=== PATIENT | male | born 1965 | race Caucasian/White ===

== ENCOUNTER 2018-12-21 18:21 | Inpatient (IN) | payer SELFPAY ==
[2018-12-21 18:28] VITALS: BP 117/96; PULSE 102; RESP 17; TEMP 38.4; O2SAT 95; BMI 24.9
[2018-12-21] MEDS: Acetaminophen 500 MG Tablet 1000 MG PO (19:24)
[2018-12-21 19:59] LABS: Anion Gap 8 (5-15); BUN 10 mg/dL (7-18); BUN/Creat Ratio 11.7 RATIO (10-20); Calcium,Total 8.5 mg/dL (8.5-10.1); Chloride 101 mmol/L (98-107); Creatinine, Serum 0.85 mg/dL (0.70-1.30); EST Glomerular Filtration Rate 100 mL/min (>60); Est Glom Filt Rate - Afr Amer 121 mL/min (>60); Estimated Creatinine Clearance 110.31 ml/min; Glucose 110 mg/dL (74-106); Potassium 3.9 mmol/L (3.5-5.1); Sodium Level 132 mmol/L (136-145)
[2018-12-21 20:02] VITALS: BP 158/90; PULSE 88; RESP 16; TEMP 37.3; O2SAT 97
[2018-12-21 20:07] LABS: Absolute Lymphocyte Count 0.61 X10^3/ul (0.83-4.51); Absolute Neutrophil Count 10.5 X10^3/uL (2.0-7.7); Basophil# 0.02 X10^3/uL; Basophil% 0.2 % (0-1); Eosinophil# 0.07 X10^3/uL; Eosinophils% 0.6 % (0-5); Hematocrit 43.2 % (40-54); Hemoglobin 14.7 g/dl (13.0-16.5); Lymphocyte # 0.61 X10^3/ul (4.0); Lymphocyte % 4.9 % (19-41); Mean Corpuscular Hgb 29.9 pg (27.0-32.0); Mean Platelet Vol. 8.8 fl (6.2-12.0); Monocyte% 8.9 % (0-10); Neutrophil # 10.51 X10^3/uL (2.7-7.7); Neutrophil % 85.2 % (47-70); POSITIVE COUNT NO; POSITIVE DIFFERENTIAL NO; POSITIVE MORPHOLOGY NO; Platelet Count 296 K/mm3 (150-450); RBC Distribution Width CV 12.2 % (11.6-14.6); RBC Distribution Width SD 38.9 fl (35.1-43.9); Red Blood Count 4.91 M/mm3 (4.6-6.2); White Blood Count 12.3 K/mm3 (4.4-11.0)
[2018-12-21 22:00] VITALS: BP 129/89; PULSE 89; RESP 18; TEMP 37; O2SAT 99
--- NOTE | 2018-12-21 22:57 | ED.RN ---
THIS RN WENT IN TO CHECK ON PT AND GET VITAL SIGNS. PT WAS ASLEEP IN BED. THIS RN WOKE PATIENT UP AND INFORMED HIS CHART IS UP FOR REEVALUATION BY THE DOCTOR
--- NOTE | 2018-12-21 23:52 | PCM.HP.STD ---
Problem List (1) Sepsis Status: Acute (2) Fasciitis Status: Acute (3) Polysubstance (including opioids) dependence with physiol dependence Status: Acute History of Present Illness Date of Admission: 12/21/18 Chief Complaint: pain, swelling and redness at right antecubital area The patient is a 53 year old M with a significant history of polysubstance dependence who presented with 1 day history of pain, swelling, increased warmth and redness at right antecubital area. Patient reported that he has been shooting drugs at the same area with symptoms. Also he has been shooting in his left antecubital area. He shoots cocaine and heroin. He shoots about a quarter of heroin in a day. He describes his pain as sharp. Movement makes his pain worse and staying still improves his pain. Associated with symptoms is chills. He did not check his temperature. He denies any nausea or vomiting. Also he smokes marijuana and tobacco. He drinks about 6 packs beer. At Emergency department patient he was found to have highest temperature of 101.1. He had a white count of 12.3. His sodium was mildly low at 132. At the emergency department patient was given vancomycin and Zosyn. He was also given Toradol IV. Past Medical History Medical History: Medical History (Last Updated 12/22/18 @ 01:41 by Ananth Guerrero MD) Polysubstance dependence F19.20 Allergies Penicillins Allergy (Verified 12/21/18 18:31) Rash Home Medications: Ambulatory Orders Medication Instructions Recorded NK 10/18/17 Surgical History: tonsillectomy Lives: With Family Smoking Status: Current every day smoker Alcohol: Occasional - *Family History Maternal History Items: Hypertension Paternal History Items: Diabetes, Heart Disease, Hypertension Review of Systems Constitutional: Reports: Chills. Denies: Weight Change HEENT: Denies: Head Aches, Sinus Congestion, Sinus Drainage Cardiovascular: Denies: Chest Pain, Palpitations Respiratory: Reports: Cough, Sputum production. Denies: Shortness of breath at rest Gastrointestinal: Denies: Abdominal Pain, Nausea, Vomiting Genitourinary: Denies: Dysuria Musculoskeletal: Reports: Joint Pain - elbow. Denies: Joint Tenderness Skin: Reports: Skin Changes - erythema of right antecubital area. Denies: Wounds Neurological: Denies: Numbness, Tingling, Focal weakness Psychiatric: Denies: Anxiety, Depression, Homicidal Ideations, Suicidal Ideations Hematologic/ Lymphatic: Denies: Easy Bruising, Easy Bleeding VTE Information - Inpt Only VTE Present on Admission: No VTE Mechan Device Prophylaxis: None VTE Pharm Prophylaxis ordered?: Yes Patient Problems: Active and Suspected Problems (Last Updated 12/22/18 @ 01:41 by Ananth Guerrero MD) Sepsis (Acute) Fasciitis (Acute) Polysubstance (including opioids) dependence with physiol dependence (Acute) - Physical Exam General: Alert, Oriented x3, Cooperative HEENT: Atraumatic, PERRLA, EOMI, Normocephalic Neck: Supple, No JVD, Negative Carotid Bruits Lungs: Clear to auscultation, Normal air movement Cardiovascular: Regular rate, No murmurs Abdomen: Bowel Sounds Present, Soft, Non Tender Extremities: No edema, Capillary Refill Less than 3 Seconds Skin: No rashes, No breakdown, - - Right antecubital area with erythema, induration; and increased warmth. Musculoskeletal: No Tenderness to Palpation of Joints or Extremities Neurological: Neuro grossly intact Psych/Mental Status: Normal Affect, Appropriate Vital Signs Temp Pulse Resp BP Pulse Ox 98.6 F 89 18 129/89 H 99 12/21/18 22:00 12/21/18 22:00 12/21/18 22:00 12/21/18 22:00 12/21/18 22:00 Oxygen Delivery Method Room Air Weight: 83.4 kg Body Mass Index (BMI) 24.9 Laboratory Tests Past 24 Hrs 12/21/18 12/21/18 19:31 19:31 WBC 12.3 H RBC 4.91 Hgb 14.7 Hct 43.2 MCV 88.0 MCH 29.9 MCHC 34.0 RDW 12.2 RDW Differential 38.9 Plt Count 296 MPV 8.8 Immature Gran % (Auto) 0.200 Neut % (Auto) 85.2 H Lymph % (Auto) 4.9 L [place] % (Auto) 8.9 Eos % (Auto) 0.6 Baso % (Auto) 0.2 Absolute Neuts (auto) 10.5 H Absolute Lymphs (auto) 0.61 L Total Counted Not Reportable Sodium 132 L Potassium 3.9 Chloride 101 Carbon Dioxide 23.0 Anion Gap 8 BUN 10 Creatinine 0.85 Estim Creat Clear Calc 110.31 Est GFR (MDRD) Af Amer 121 Est GFR (MDRD) Non-Af 100 BUN/Creatinine Ratio 11.7 Glucose 110 H Calcium 8.5 Assessment/Plan All Active Problems (Last Updated 12/22/18 @ 01:41 by Ananth Guerrero MD) Sepsis (Acute) Fasciitis (Acute) Polysubstance (including opioids) dependence with physiol dependence (Acute) The patient is a 53 year old M with a significant history of polysubstance dependence who presented with 1 day history of pain, swelling, increased warmth and redness at right antecubital area and who met Sirs criteria with elevated white count and fever consistent with sepsis secondary to likely fasciitis/cellulitis. Sepsis secondary to likely fasciitis/cellulitis. No evidence of necrotizing fasciitis at this time. Received vancomycin and Zosyn in the emergency department. We will continue vancomycin and Zosyn. Consider discussing case with plastic surgeon. Oxycodone IR prn; Toradol as needed for pain Tylenol as needed for pain and fever. PRN Zofran and bowel protocol in the setting of narcotic administration. Polysubstance dependence and withdrawal. At the emergency department patient's reported that he think that he has begun to withdrawal as he was having some chest tightness. He reports a history of withdrawal. PRN oxycodone for pain should also help with his withdrawal symptoms. Tobacco abuse Counseled Nicotine patch ordered. Hyponatremia: On presentation his sodium was 132. He reports that he drinks about 6 packs/week. The patient is not minimizing this may be classified as alcoholism. However it is probable that his mild hyponatremia could be due to alcoholism. Trend BMP Gentle IV hydration with normal saline. DVT prophylaxis: Subcutaneous heparin ordered. Code Visit Inpatient E&M: 72415 Init Hosp L3
[2018-12-22] VITALS (8 sets, daily range): BP systolic 113–134; BP diastolic 60–91; PULSE 72–82; RESP 16–18; TEMP 36.9–37.8; O2SAT 97–100; BMI 23.9
--- NOTE | 2018-12-22 00:11 | ED.VISSUMM ---
- ER Visit Summary Date of Service: 12/22/18 Chief Complaint: Right arm pain and redness History of Present Illness: The patient is a 53 M IV drug abuse. Patient uses heroin frequently. He shoots up in his right antecubital. He is developed a fever and redness, swelling and pain to his right antecubital of his elbow. No prior history. Physical Examination: Vital signs stable with temperature 101. He does not look septic or toxic. HEENT exam unremarkable moist weeks membranes. Neck nontender no lymphadenopathy. Heart regular rate and rhythm no murmur rate about 100. Abdomen soft nontender. Extremities moves all 4. Neurovascular intact. His right antecubital is tender, red and swollen. Obvious cellulitis suspected subcu abscess. No lymphangitic streaking. No axillary lymphadenopathy. No septic joint. He is able to flex and extend the elbow but has pain in antecubital area. Distally the right hand is neurovascular intact with 5/5 motor strength. Normal sensation. Normal radial pulse. Neurologically is awake alert with no focal motor deficits. Test Results: CBC White count 12.3. Hemoglobin 14. No bands. Chemistries unremarkable sodium 132. Gap of 8. Blood cultures were obtained x2. Emergency Department Course and Treatment: Patient was started on Zosyn and vancomycin. Tylenol for his fever. Treatment Plan: I spoke to the hospitalist who will admit the patient and can get either surgery or plastic surgery or orthopedic evaluation for possible I&D of the abscess. Disposition: Admission Impression: Acute right arm cellulitis with suspected antecubital abscess Secondary to IV drug abuse This note was generated with [employer] dictation software. It may contain incorrect words, spelling, and punctuation that were not noted in review of the chart prior to signing ED Disposition - Plan for ED Patient: Referrals: Bruce Le DO [Primary Care Provider] -
--- NOTE | 2018-12-22 00:14 | ED.DCSUM_ITS ---
- ER Visit Summary Date of Service: 12/22/18 Chief Complaint: Right arm pain and redness History of Present Illness: The patient is a 53 M IV drug abuse. Patient uses heroin frequently. He shoots up in his right antecubital. He is developed a fever and redness, swelling and pain to his right antecubital of his elbow. No prior history. Physical Examination: Vital signs stable with temperature 101. He does not look septic or toxic. HEENT exam unremarkable moist weeks membranes. Neck nontender no lymphadenopathy. Heart regular rate and rhythm no murmur rate about 100. Abdomen soft nontender. Extremities moves all 4. Neurovascular intact. His right antecubital is tender, red and swollen. Obvious cellulitis suspected subcu abscess. No lymphangitic streaking. No axillary lymphadenopathy. No septic joint. He is able to flex and extend the elbow but has pain in ant ecubital area. Distally the right hand is neurovascular intact with 5/5 motor strength. Normal sensation. Normal radial pulse. Neurologically is awake alert with no focal motor deficits. Test Results: CBC White count 12.3. Hemoglobin 14. No bands. Chemistries unremarkable sodium 132. Gap of 8. Blood cultures were obtained x2. Emergency Department Course and Treatment: Patient was started on Zosyn and vancomycin. Tylenol for his fever. Treatment Plan: I spoke to the hospitalist who will admit the patient and can get either surgery or plastic surgery or orthopedic evaluation for possible I&D of the abscess. Disposition: Admission Impression: Acute right arm cellulitis with suspected antecubital abscess Secondary to IV drug abuse This note was generated with [employer] dictation software. It may contain incorrect words, spelling, and punctuation that were not noted in review of the chart prior to signing ED Disposition - Plan for ED Patient: Referrals: Bruce Le DO [Primary Care Provider] -
[2018-12-22] MEDS: Ketorolac 30 MG/ML Syringe IV (00:23)
[2018-12-22] MEDS: oxyCODONE 5 MG Tablet PO ×2 (00:43→08:09)
[2018-12-22] MEDS: 0.9% Normal Saline 1,000 ML 75 ML IV (01:39)
[2018-12-22] MEDS: Acetaminophen 325 MG Tablet 650 MG PO ×3 (01:50→17:16)
--- NOTE | 2018-12-22 01:53 | PCM.RX.CS ---
Consult Pharmacy has been consulted to manage selected antiobiotic: Vancomycin Type of Consult: New start Suspected Infection: Sepsis Prior Doses of Antibiotics Received/Current Regimen: Medications Vancomycin HCl 1,500 mg/ (Sodium Chloride) 530 mls @ 250 mls/hr IV X1 ONE Stop: 12/22/18 02:15 Last Admin: 12/22/18 01:39 Dose: 250 mls/hr Vancomycin HCl 1,000 mg/ (Sodium Chloride) 200 mls @ 200 mls/hr IV Q8H ANTONIO Labs: Sodium 132 mmol/L (136-145) L 12/21/18 19:31 Potassium 3.9 mmol/L (3.5-5.1) 12/21/18 19:31 Chloride 101 mmol/L (98-107) 12/21/18 19:31 Carbon Dioxide 23.0 mmol/L (21.0-32.0) 12/21/18 19:31 Anion Gap 8 (5-15) 12/21/18 19:31 BUN 10 mg/dL (7-18) 12/21/18 19:31 Creatinine 0.85 mg/dL (0.70-1.30) 12/21/18 19:31 Est GFR (MDRD) Af Amer 121 mL/min (>60) 12/21/18 19:31 Est GFR (MDRD) Non-Af 100 mL/min (>60) 12/21/18 19:31 BUN/Creatinine Ratio 11.7 RATIO (10-20) 12/21/18 19:31 Glucose 110 mg/dL (74-106) H 12/21/18 19:31 Weight used for dosin.1 kg Estimated Creatinine Clearance: 110 Goal Trough: 15-20 mcg/mL Pharmacy Plan for Drug Dosing: Pharmacy Service will continue to monitor and adjust dosing as required. Follow-Up Labs: Trough Vancomycin Labs to be done on [date and time ordered]: 12/23/18 @0100
[2018-12-22 03:18] LABS: Absolute Lymphocyte Count 0.64 X10^3/ul (0.83-4.51); Basophil# 0.03 X10^3/uL; Basophil% 0.3 % (0-1); Eosinophil# 0.09 X10^3/uL; Eosinophils% 0.9 % (0-5); Hematocrit 40.9 % (40-54); Lymphocyte # 0.64 X10^3/ul (4.0); Lymphocyte % 6.1 % (19-41); Mean Corp Hgb Conc 34.2 g/gl (32-36); Mean Corpuscular Hgb 30.5 pg (27.0-32.0); Mean Corpuscular Volume 89.1 fL (80-94); Mean Platelet Vol. 8.6 fl (6.2-12.0); Monocyte# 0.78 X10^3/uL; Monocyte% 7.4 % (0-10); Neutrophil # 9.01 X10^3/uL (2.7-7.7); Neutrophil % 85.1 % (47-70); Platelet Count 240 K/mm3 (150-450); RBC Distribution Width CV 12.2 % (11.6-14.6); RBC Distribution Width SD 39.6 fl (35.1-43.9); Red Blood Count 4.59 M/mm3 (4.6-6.2); White Blood Count 10.6 K/mm3 (4.4-11.0)
[2018-12-22 03:19] LABS: POSITIVE COUNT NO; POSITIVE DIFFERENTIAL NO; POSITIVE MORPHOLOGY NO
[2018-12-22 03:44] LABS: Anion Gap 7 (5-15); BUN 12 mg/dL (7-18); BUN/Creat Ratio 13.9 RATIO (10-20); Chloride 103 mmol/L (98-107); Creatinine, Serum 0.86 mg/dL (0.70-1.30); EST Glomerular Filtration Rate 98 mL/min (>60); Est Glom Filt Rate - Afr Amer 119 mL/min (>60); Estimated Creatinine Clearance 109.03 ml/min; Glucose 155 mg/dL (74-106); Potassium 3.8 mmol/L (3.5-5.1); Sodium Level 133 mmol/L (136-145)
[2018-12-22 03:46] LABS: Lactic Acid 1.5 mmol/L (0.4-2.0)
[2018-12-22] MEDS: Heparin Injection (Vial) 5,000 UNIT/ML VIAL 5000 UNIT SC (05:37)
[2018-12-22] MEDS: Ketorolac 15 MG/ML Vial IV ×3 (05:46→21:24)
--- NOTE | 2018-12-22 06:07 | NURSING ---
Called [facility] and left a message in regards to consult.
--- NOTE | 2018-12-22 08:06 | NURSING ---
micro called with positive blood culture report. primary RN and MD notified
--- NOTE | 2018-12-22 09:33 | CT_ITS ---
STUDY: CT RIGHT ELBOW WITH CONTRAST REASON FOR EXAM: Redness/warmth to touch, cellulitis. TECHNIQUE: Transaxial CT imaging of the elbow was performed after intravenous administration of 100 mL of Isovue-300. Sagittal and coronal images were reconstructed. Individualized dose optimization techniques were used for this CT. COMPARISON: None. FINDINGS: Normal visualized humerus, radius and ulna. Normal radiocapitellar and ulnotrochlear articulations. There is soft tissue swelling without a focal fluid collection with wall enhancement. There is thrombus in the antecubital veins (series 602 images 45-49). CT/Extremity Upper without Contra IMPRESSION: Thrombus in the antecubital veins. Soft tissue swelling without demonstrated abscess or osteomyelitis. Electronically Signed: Arsenio Snow MD at 11:36 EDT Tel , Service support ,
--- NOTE | 2018-12-22 09:35 | PCM.PN.HOSP ---
Patient Problems: Active and Suspected Problems (Last Updated 12/22/18 @ 01:41 by Ananth Guerrero MD) Sepsis (Acute) Polysubstance (including opioids) dependence with physiol dependence (Acute) Right arm cellulitis (Acute) Bacteremia (Acute) Subjective: Erythema in the right antecubital region is much improved from yesterday. Still tenderness and swelling in the antecubital region. Expresses a desire to quit heroin. Patient had been clean and sober for about 10 years up until about a year ago when his brought home heroin and then he has been injecting heroin and cocaine ever since. Vitals/I&O's: Vital Signs Temp Pulse Resp BP Pulse Ox 37.0 C 80 18 127/91 H 100 12/22/18 09:07 12/22/18 09:07 12/22/18 09:07 12/22/18 09:07 12/22/18 09:07 Oxygen Delivery Method Room Air Weight: 80.1 kg Body Mass Index (BMI) 23.9 Intake and Output for Last 24 Hours 12/20/18 12/21/18 12/22/18 23:59 23:59 23:59 Intake Total 1176 / 1176 Balance 1176 / 1176 General: Alert, No apparent distress, - - Diaphoretic. Afebrile. HEENT: Atraumatic, Normocephalic, - - No scleral icterus Oral: Moist Mucosa, No Gingival or Mucosal Lesions/ Ulcerations Neck: No Nodes, Thyroid Normal Size and Texture Lungs: Clear to auscultation, Normal air movement, No rhonchi, No wheeze Cardiovascular: Regular rate, Regular Rhythm, Normal S1, Normal S2, No murmurs Abdomen: Bowel Sounds Present, Soft, Non Tender, Non-Distended, No Hepato-splenomegaly Skin: - - Faint erythema of the right antecubital region. Area of erythema is much withdrawn from the lines of demarcation. Swelling and induration in the antecubital region. Psych/Mental Status: Normal Affect, Appropriate Microbiology Past 72 Hours 12/21/18 19:31 Blood Culture (Wb) - Left Forearm Blood Culture - Preliminary Laboratory Results 12/21/18 19:31: WBC 12.3 H, RBC 4.91, Hgb 14.7, Hct 43.2, MCV 88.0, MCH 29.9, MCHC 34.0, RDW 12.2, RDW Differential 38.9, Plt Count 296, MPV 8.8, Immature Gran % (Auto) 0.200, Neut % (Auto) 85.2 H, Lymph % (Auto) 4.9 L, [place] % (Auto) 8.9, Eos % (Auto) 0.6, Baso % (Auto) 0.2, Absolute Neuts (auto) 10.5 H, Absolute Lymphs (auto) 0.61 L, Total Counted Not Reportable 12/21/18 19:31: Sodium 132 L, Potassium 3.9, Chloride 101, Carbon Dioxide 23.0, Anion Gap 8, BUN 10, Creatinine 0.85, Estim Creat Clear Calc 110.31, Est GFR (MDRD) Af Amer 121, Est GFR (MDRD) Non-Af 100, BUN/Creatinine Ratio 11.7, Glucose 110 H, Calcium 8.5 12/22/18 03:05: WBC 10.6, RBC 4.59 L, Hgb 14.0, Hct 40.9, MCV 89.1, MCH 30.5, MCHC 34.2, RDW 12.2, RDW Differential 39.6, Plt Count 240, MPV 8.6, Immature Gran % (Auto) 0.200, Neut % (Auto) 85.1 H, Lymph % (Auto) 6.1 L, [place] % (Auto) 7.4, Eos % (Auto) 0.9, Baso % (Auto) 0.3, Absolute Neuts (auto) 9.0 H, Absolute Lymphs (auto) 0.64 L, Total Counted Not Reportable 12/22/18 03:05: Sodium 133 L, Potassium 3.8, Chloride 103, Carbon Dioxide 23.0, Anion Gap 7, BUN 12, Creatinine 0.86, Estim Creat Clear Calc 109.03, Est GFR (MDRD) Af Amer 119, Est GFR (MDRD) Non-Af 98, BUN/Creatinine Ratio 13.9, Glucose 155 H, Calcium 8.0 L 12/22/18 03:05: Lactic Acid 1.5 Current Medications Acetaminophen (Tylenol) 650 mg PO Q6H PRN PRN PRN Reason: FEVER OF > 100.4/PAIN Last Admin: 12/22/18 01:50 Dose: 650 mg Bisacodyl (Dulcolax) 5 mg PO DAILY PRN PRN PRN Reason: Constipation Heparin Sodium (Porcine) (Heparin Na) 5,000 unit SC Q8 [facility] Last Admin: 12/22/18 05:37 Dose: 5,000 unit Vancomycin IV Pharmacy to Dose (1,250 ea/ Sodium Chloride) 500 mls @ 250 mls/hr IV PRN PRN; Protocol Vancomycin HCl 1,000 mg/ (Sodium Chloride) 200 mls @ 200 mls/hr IV Q8H [facility] Influenza Virus Vaccine Quadrival (Fluarix/Fluzone) 0.5 ml IM .ONCE ONE Stop: 12/22/18 10:01 Ketorolac Tromethamine (Toradol) 15 mg IV Q6H PRN PRN PRN Reason: PAIN Stop: 12/27/18 01:12 Last Admin: 12/22/18 05:46 Dose: 15 mg Magnesium Hydroxide (Milk Of Magnesia) 30 ml PO DAILY PRN PRN PRN Reason: Constipation Nicotine (Nicoderm Cq (Pbkc)) 21 mg TRANSDERM. DAILY [facility] Last Admin: 12/22/18 01:44 Dose: 21 mg Nutritional Formula (Lactose Free) (Ensure Enlive) 120 ml PO 4X/DAY [facility] Ondansetron HCl (Zofran) 4 mg IV Q6H PRN PRN PRN Reason: NAUSEA/VOMITING Senna/Docusate Sodium (Senokot-S, Ruby-Colace) 1 tablet PO BID [facility] Medical Necessity - Tobacco Use Smoking Status: Current every day smoker Tobacco Use: Cigarettes Assessment/Plan All Active Problems (Last Updated 12/22/18 @ 01:41 by Ananth Guerrero MD) Sepsis (Acute) Fasciitis (Ruled-out) Polysubstance (including opioids) dependence with physiol dependence (Acute) Right arm cellulitis (Acute) Bacteremia (Acute) 1. Sepsis: Present on admission. Secondary to right arm cellulitis and bacteremia. Clinically improved at this time. Monitor. 2. Right antecubital cellulitis: Concern for abscess. Will check CT to evaluate and if abscess and will need to consult surgical specialty for incision and drainage. But the overall cellulitis does appear much improved from the demarcation. Continue with vancomycin and discontinue the Zosyn. 3. Gram-positive bacteremia: Likely due to the cellulitis plus or minus abscess. Continue with vancomycin and discontinue Zosyn. Repeat blood cultures. If repeat blood cultures positive then will need an echocardiogram to evaluate for endocarditis. 4. Heroin abuse: Patient has a CINA core of 19. Patient is interested in receiving treatment has he has done this previously had been sober for about 10 years. I discussed with the patient about discontinuing oxycodone for going to be initiating buprenorphine. He stated that he was in agreement to that and stated that we will try to optimize his pain control with nonnarcotics. Patient will also be on other medications to help with his other somatic complaints place here. [facility] to further assist in regards to outpatient management. 5. DVT prophylaxis: Patient is moderate risk. Subcu heparin. Code Visit Inpatient E&M: 81049 Subs Hosp L2
--- NOTE | 2018-12-22 09:40 | PN_ITS ---
Patient Problems: Active and Suspected Problems (Last Updated 12/22/18 @ 01:41 by Ananth Guerrero MD) Sepsis (Acute) Polysubstance (including opioids) dependence with physiol dependence (Acute) Right arm cellulitis (Acute) Bacteremia (Acute) Subjective: Erythema in the right antecubital region is much improved from yesterday. Still tenderness and swelling in the antecubital region. Expresses a desire to quit heroin. Patient had been clean and sober for about 10 years up until about a year ago when his brought home heroin and then he has been injecting heroin and cocaine ever since. Vitals/I&O's: Vital Signs Temp Pulse Resp BP Pulse Ox 37.0 C 80 18 127/91 H 100 12/22/18 09:07 12/22/18 09:07 12/22/18 09:07 12/22/18 09:07 12/22/18 09:07 Oxygen Delivery Method Room Air Weight: 80.1 kg Body Mass Index (BMI) 23.9 Intake and Output for Last 24 Hours 12/20/18 12/21/18 12/22/18 23:59 23:59 23:59 Intake Total 1176 / 1176 Balance 1176 / 1176 General: Alert, No apparent distress, - - Diaphoretic. Afebrile. HEENT: Atraumatic, Normocephalic, - - No scleral icterus Oral: Moist Mucosa, No Gingival or Mucosal Lesions/ Ulcerations Neck: No Nodes, Thyroid Normal Size and Texture Lungs: Clear to auscultation, Normal air movement, No rhonchi, No wheeze Cardiovascular: Regular rate, Regular Rhythm, Normal S1, Normal S2, No murmurs Abdomen: Bowel Sounds Present, Soft, Non Tender, Non-Distended, No Hepato- splenomegaly Skin: - - Faint erythema of the right antecubital region. Area of erythema is much withdrawn from the lines of demarcation. Swelling and induration in the antecubital region. Psych/Mental Status: Normal Affect, Appropriate Microbiology Past 72 Hours 12/21/18 19:31 Blood Culture (Wb) - Left Forearm Blood Culture - Preliminary Laboratory Results 12/21/18 19:31: WBC 12.3 H, RBC 4.91, Hgb 14.7, Hct 43.2, MCV 88.0, MCH 29.9, MCHC 34.0, RDW 12.2, RDW Differential 38.9, Plt Count 296, MPV 8.8, Immature Gran % (Auto) 0.200, Neut % (Auto) 85.2 H, Lymph % (Auto) 4.9 L, [place] % (Auto) 8.9, Eos % (Auto) 0.6, Baso % (Auto) 0.2, Absolute Neuts (auto) 10.5 H, Absolute Lymphs (auto) 0.61 L, Total Counted Not Reportable 12/21/18 19:31: Sodium 132 L, Potassium 3.9, Chloride 101, Carbon Dioxide 23.0, Anion Gap 8, BUN 10, Creatinine 0.85, Estim Creat Clear Calc 110.31, Est GFR (MDRD) Af Amer 121, Est GFR (MDRD) Non-Af 100, BUN/Creatinine Ratio 11.7, Glucose 110 H, Calcium 8.5 12/22/18 03:05: WBC 10.6, RBC 4.59 L, Hgb 14.0, Hct 40.9, MCV 89.1, MCH 30.5, MCHC 34.2, RDW 12.2, RDW Differential 39.6, Plt Count 240, MPV 8.6, Immature Gran % (Auto) 0.200, Neut % (Auto) 85.1 H, Lymph % (Auto) 6.1 L, [place] % (Auto) 7.4, Eos % (Auto) 0.9, Baso % (Auto) 0.3, Absolute Neuts (auto) 9.0 H, Absolute Lymphs (auto) 0.64 L, Total Counted Not Reportable 12/22/18 03:05: Sodium 133 L, Potassium 3.8, Chloride 103, Carbon Dioxide 23.0, Anion Gap 7, BUN 12, Creatinine 0.86, Estim Creat Clear Calc 109.03, Est GFR (MDRD) Af Amer 119, Est GFR (MDRD) Non-Af 98, BUN/Creatinine Ratio 13.9, Glucose 155 H, Calcium 8.0 L 12/22/18 03:05: Lactic Acid 1.5 Current Medications Acetaminophen (Tylenol) 650 mg PO Q6H PRN PRN PRN Reason: FEVER OF > 100.4/PAIN Last Admin: 12/22/18 01:50 Dose: 650 mg Bisacodyl (Dulcolax) 5 mg PO DAILY PRN PRN PRN Reason: Constipation Heparin Sodium (Porcine) (Heparin Na) 5,000 unit SC Q8 [facility] Last Admin: 12/22/18 05:37 Dose: 5,000 unit Vancomycin IV Pharmacy to Dose (1,250 ea/ Sodium Chloride) 500 mls @ 250 mls/hr IV PRN PRN; Protocol Vancomycin HCl 1,000 mg/ (Sodium Chloride) 200 mls @ 200 mls/hr IV Q8H [facility] Influenza Virus Vaccine Quadrival (Fluarix/Fluzone) 0.5 ml IM .ONCE ONE Stop: 12/22/18 10:01 Ketorolac Tromethamine (Toradol) 15 mg IV Q6H PRN PRN PRN Reason: PAIN Stop: 12/27/18 01:12 Last Admin: 12/22/18 05:46 Dose: 15 mg Magnesium Hydroxide (Milk Of Magnesia) 30 ml PO DAILY PRN PRN PRN Reason: Constipation Nicotine (Nicoderm Cq (Pbkc)) 21 mg TRANSDERM. DAILY [facility] Last Admin: 12/22/18 01:44 Dose: 21 mg Nutritional Formula (Lactose Free) (Ensure Enlive) 120 ml PO 4X/DAY [facility] Ondansetron HCl (Zofran) 4 mg IV Q6H PRN PRN PRN Reason: NAUSEA/VOMITING Senna/Docusate Sodium (Senokot-S, Ruby-Colace) 1 tablet PO BID [facility] Medical Necessity - Tobacco Use Smoking Status: Current every day smoker Tobacco Use: Cigarettes Assessment/Plan All Active Problems (Last Updated 12/22/18 @ 01:41 by Ananth Guerrero MD) Sepsis (Acute) Fasciitis (Ruled-out) Polysubstance (including opioids) dependence with physiol dependence (Acute) Right arm cellulitis (Acute) Bacteremia (Acute) 1. Sepsis: Present on admission. Secondary to right arm cellulitis and bacteremia. Clinically improved at this time. Monitor. 2. Right antecubital cellulitis: Concern for abscess. Will check CT to evaluate and if abscess and will need to consult surgical specialty for incision and drainage. But the overall cellulitis does appear much improved from the demarcation. Continue with vancomycin and discontinue the Zosyn. 3. Gram-positive bacteremia: Likely due to the cellulitis plus or minus abscess. Continue with vancomycin and discontinue Zosyn. Repeat blood cultures. If repeat blood cultures positive then will need an echocardiogram to evaluate for endocarditis. 4. Heroin abuse: Patient has a CINA core of 19. Patient is interested in receiving treatment has he has done this previously had been sober for about 10 years. I discussed with the patient about discontinuing oxycodone for going to be initiating buprenorphine. He stated that he was in agreement to that and stated that we will try to optimize his pain control with nonnarcotics. Patient will also be on other medications to help with his other somatic complaints place here. [facility] to further assist in regards to outpatient management. 5. DVT prophylaxis: Patient is moderate risk. Subcu heparin. Code Visit Inpatient E&M: 42865 Subs Hosp L2
[2018-12-22] MEDS: Pramipexole Di-HCl 0.25 MG Tablet PO (11:00)
[2018-12-22] MEDS: cloNIDine HCl 0.1 MG Tablet PO ×3 (11:00→17:16)
[2018-12-22] MEDS: Methocarbamol 750 MG Tablet PO (11:00)
[2018-12-22] MEDS: Dicyclomine 10 MG Capsule 20 MG PO ×2 (11:00→17:16)
[2018-12-22] MEDS: Buprenorphine HCl 2 MG TAB.SUBL SL ×2 (11:01→18:35)
--- NOTE | 2018-12-22 15:07 | CASEMGMT ---
Reason for Referral: Pt referred to SW by physician this morning for drug abuse history and active use; pt indicated to physician wants to go through withdrawal and interested in help. Pt is also self pay. SW met w/pt in room to review prior level of function, discharge plan, referrals needed. Personal Status: Living arrangements: Pt was living w/ up until recently, they lost their housing. Pt's is in an inpt program called [facility] in [place]. Pt is living with his mother at present. 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 Pt states gets paid $25/hour, does plan to return to work. Insurance: Pt has no insurance at present, no prescription coverage, pt states had Medicaid but will not qualify now due to his income. SW gave pt resources including [facility] assist, [employer], Medicaid [place], [employer], prescription assist programs, and dental clinic information. : none Family Dynamics/Support system: Pt reports he and his lost custody of their 16 year old, she is staying w/friends. He missed a visit with her yesterday as he was here. Pt is staying w/his mother. Seems to have a good relationship w/, this is his second , they have been for 24 years. Pt has two older sons(26 and 30)from a previous marriage. They will not speak to him due to his using again. LW/POA: No Medical History and Functioning: Reason for admission: cellulitis, bacteremia, fascitis, polysubstance abuse ADL/DME: Pt was fully independent, no DME Programs/Agencies involved: Children's Services involved due to their 16 year old daughter. Pt and lost custody of her, she is staying w/friends at present. Substance abuse history and current pattern of use: Pt states he uses cocaine, has been using for one year. Pt and had been clean for 10 years prior to picking up again last year. Pt started using heroin 2 months ago, states never used heroin prior. Pt smokes, drinks occasionally. Pt denies another other drug use including marijuana, prescription meds, methamphetamine. Pt states he and started using one year ago. went through breast cancer, and she also had gastric bypass. He states she loste a lot of weight and people assumed she was using, so she just started using again. When she started again, he joined her. 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 Pt states is going to [facility] in [place], and he will go when she leaves, it is already set up. SW asked if it matters he does not have insurance, he states it does not. He states his will probably go to [facility] at discharge from there. Mental health history and current cognitive status: Pt denies any diagnoses, any history of treatment. Pt denies being suicidal or homicidal at this time. Pt tearful during conversation, in particular around his relapse and his daughter. Support given to pt. Plan: Pt will go back to his mother's at discharge and from there will go to [facility] in [place]. SW let pt know remains available should he need any support or resources. PAULA Patel, PRECISION ASSEMBLER
[2018-12-23] VITALS (11 sets, daily range): BP systolic 117–234; BP diastolic 50–80; PULSE 68–79; RESP 13–20; TEMP 36.7–37.8; O2SAT 94–98
[2018-12-23] MEDS: Acetaminophen 325 MG Tablet 650 MG PO ×3 (02:02→17:25)
[2018-12-23] MEDS: Buprenorphine HCl 2 MG TAB.SUBL SL ×3 (02:02→18:38)
[2018-12-23 02:20] LABS: Vancomycin, Trough Level 9.6 ug/mL (5.0-15.0)
--- NOTE | 2018-12-23 03:12 | PCM.RX.CS ---
Consult Pharmacy has been consulted to manage selected antiobiotic: Vancomycin Type of Consult: Follow-up Suspected Infection: Sepsis Prior Doses of Antibiotics Received/Current Regimen: Medications Vancomycin HCl 1,500 mg/ (Sodium Chloride) 530 mls @ 250 mls/hr IV Q8H [facility] Discontinued Medications Vancomycin HCl 1,000 mg/ (Sodium Chloride) 200 mls @ 200 mls/hr IV Q8H [facility] Last Admin: 12/23/18 02:02 Dose: 200 mls/hr Labs: Sodium 133 mmol/L (136-145) L 12/22/18 03:05 Potassium 3.8 mmol/L (3.5-5.1) 12/22/18 03:05 Chloride 103 mmol/L (98-107) 12/22/18 03:05 Carbon Dioxide 23.0 mmol/L (21.0-32.0) 12/22/18 03:05 Anion Gap 7 (5-15) 12/22/18 03:05 BUN 12 mg/dL (7-18) 12/22/18 03:05 Creatinine 0.86 mg/dL (0.70-1.30) 12/22/18 03:05 Est GFR (MDRD) Af Amer 119 mL/min (>60) 12/22/18 03:05 Est GFR (MDRD) Non-Af 98 mL/min (>60) 12/22/18 03:05 BUN/Creatinine Ratio 13.9 RATIO (10-20) 12/22/18 03:05 Glucose 155 mg/dL (74-106) H 12/22/18 03:05 Vancomycin Trough 9.6 ug/mL (5.0-15.0) 12/23/18 01:25 Microbiology: Microbiology 12/22/18 08:45 Blood Culture (Wb) - Left Forearm Blood Culture - Preliminary 12/21/18 19:31 Blood Culture (Wb) - Left Forearm Bacteria Detection (PCR) - Final Staphylococcus aureus mecA Resistance Marker 12/21/18 19:31 Blood Culture (Wb) - Left Forearm Blood Culture - Preliminary 12/21/18 19:55 Blood Culture (Wb) - Left Hand Blood Culture - Preliminary Weight used for dosin.1 kg Estimated Creatinine Clearance: 109 Goal Trough: 15-20 mcg/mL Pharmacy Plan for Drug Dosing: Trough level of 9.6 was below target range of 15-20. Increased the dose to 1500mg q8h. Will re-draw trough before 4th dose. Pharmacy Service will continue to monitor and adjust dosing as required. Follow-Up Labs: Trough Vancomycin Labs to be done on [date and time ordered]: 12/24/18 @9982
[2018-12-23] MEDS: Ketorolac 15 MG/ML Vial IV ×3 (03:14→19:39)
[2018-12-23 06:05] LABS: Absolute Neutrophil Count 8.6 X10^3/uL (2.0-7.7); Basophil# 0.03 X10^3/uL; Basophil% 0.3 % (0-1); Eosinophil# 0.33 X10^3/uL; Eosinophils% 2.9 % (0-5); Hematocrit 39.4 % (40-54); Hemoglobin 13.1 g/dl (13.0-16.5); Lymphocyte % 10.7 % (19-41); Mean Corp Hgb Conc 33.2 g/gl (32-36); Mean Corpuscular Hgb 29.5 pg (27.0-32.0); Mean Corpuscular Volume 88.7 fL (80-94); Mean Platelet Vol. 8.7 fl (6.2-12.0); Monocyte# 1.09 X10^3/uL; Monocyte% 9.7 % (0-10); Neutrophil # 8.58 X10^3/uL (2.7-7.7); Neutrophil % 76.1 % (47-70); Platelet Count 242 K/mm3 (150-450); RBC Distribution Width CV 12.6 % (11.6-14.6); RBC Distribution Width SD 40.4 fl (35.1-43.9); Red Blood Count 4.44 M/mm3 (4.6-6.2); White Blood Count 11.3 K/mm3 (4.4-11.0)
[2018-12-23 06:11] LABS: POSITIVE COUNT NO; POSITIVE DIFFERENTIAL NO; POSITIVE MORPHOLOGY NO
[2018-12-23 06:19] LABS: Anion Gap 5 (5-15); BUN 13 mg/dL (7-18); BUN/Creat Ratio 17.3 RATIO (10-20); Calcium,Total 8.1 mg/dL (8.5-10.1); Chloride 107 mmol/L (98-107); Creatinine, Serum 0.75 mg/dL (0.70-1.30); EST Glomerular Filtration Rate 115 mL/min (>60); Est Glom Filt Rate - Afr Amer 139 mL/min (>60); Estimated Creatinine Clearance 125.02 ml/min; Glucose 144 mg/dL (74-106); Potassium 3.7 mmol/L (3.5-5.1); Sodium Level 137 mmol/L (136-145)
--- NOTE | 2018-12-23 09:25 | PCM.PN.HOSP ---
Patient Problems: Active and Suspected Problems (Last Updated 12/22/18 @ 01:41 by Ananth Guerrero MD) Bacteremia (Acute) Sepsis (Acute) Polysubstance (including opioids) dependence with physiol dependence (Acute) Right arm cellulitis (Acute) Subjective: Increased redness of his right arm. No new complaints. Vitals/I&O's: Vital Signs Temp Pulse Resp BP Pulse Ox 37.3 C 79 16 117/77 98 12/23/18 02:21 12/23/18 02:21 12/23/18 06:00 12/23/18 02:21 12/23/18 07:27 Oxygen Delivery Method Room Air Weight: 80.1 kg Body Mass Index (BMI) 23.9 Intake and Output for Last 24 Hours 12/21/18 12/22/18 12/23/18 23:59 23:59 23:59 Intake Total 3008 / 3008 1396 / 1396 Balance 3008 / 3008 1396 / 1396 General: Alert, No apparent distress HEENT: Atraumatic, Normocephalic Oral: Moist Mucosa, No Gingival or Mucosal Lesions/ Ulcerations Neck: No Nodes, Thyroid Normal Size and Texture Lungs: Clear to auscultation, Normal air movement, No rhonchi, No wheeze Cardiovascular: Regular rate, Regular Rhythm, Normal S1, Normal S2, No murmurs Abdomen: Bowel Sounds Present, Soft, Non Tender, Non-Distended, No Hepato-splenomegaly Extremities: No Calf Tenderness Skin: - - swelling induration, mild erythema in right antecub. Psych/Mental Status: Normal Affect, Appropriate Microbiology Past 72 Hours 12/21/18 19:31 Blood Culture (Wb) - Left Forearm Bacteria Detection (PCR) - Final Staphylococcus aureus mecA Resistance Marker 12/21/18 19:31 Blood Culture (Wb) - Left Forearm Blood Culture - Preliminary Staphylococcus aureus 12/21/18 19:55 Blood Culture (Wb) - Left Hand Blood Culture - Preliminary Staphylococcus aureus 12/22/18 08:45 Blood Culture (Wb) - Left Forearm Blood Culture - Preliminary Staphylococcus aureus Laboratory Results 12/23/18 01:25: Vancomycin Trough 9.6 12/23/18 05:20: WBC 11.3 H, RBC 4.44 L, Hgb 13.1, Hct 39.4 L, MCV 88.7, MCH 29.5, MCHC 33.2, RDW 12.6, RDW Differential 40.4, Plt Count 242, MPV 8.7, Immature Gran % (Auto) 0.300, Neut % (Auto) 76.1 H, Lymph % (Auto) 10.7 L, [place] % (Auto) 9.7, Eos % (Auto) 2.9, Baso % (Auto) 0.3, Absolute Neuts (auto) 8.6 H, Absolute Lymphs (auto) 1.20, Total Counted Not Reportable 12/23/18 05:20: Sodium 137, Potassium 3.7, Chloride 107, Carbon Dioxide 25.0, Anion Gap 5, BUN 13, Creatinine 0.75, Estim Creat Clear Calc 125.02, Est GFR (MDRD) Af Amer 139, Est GFR (MDRD) Non-Af 115, BUN/Creatinine Ratio 17.3, Glucose 144 H, Calcium 8.1 L Current Medications Acetaminophen (Tylenol) 650 mg PO Q6H PRN PRN PRN Reason: FEVER OF > 100.4/PAIN Last Admin: 12/23/18 08:41 Dose: 650 mg Bisacodyl (Dulcolax) 5 mg PO DAILY PRN PRN PRN Reason: Constipation Buprenorphine HCl (Buprenorphine Hcl) 4 mg SL Q8H [facility]; Taper Stop: 12/25/18 14:44 Last Admin: 12/23/18 02:02 Dose: 4 mg Clonidine (Catapres) 0.1 mg PO Q2H PRN PRN PRN Reason: Hot/Cold Sweats or Anxiety Last Admin: 12/22/18 17:16 Dose: 0.1 mg Dicyclomine HCl (Bentyl) 20 mg PO Q6H PRN PRN PRN Reason: Abdomnial Discomfort Last Admin: 12/22/18 17:16 Dose: 20 mg Heparin Sodium (Porcine) (Heparin Na) 5,000 unit SC Q8 [facility] Last Admin: 12/23/18 05:24 Dose: Not Given Hydroxyzine Pamoate (Vistaril Pamoate Capsule) 50 mg PO Q6H PRN PRN PRN Reason: Mild Anxiety Vancomycin IV Pharmacy to Dose (1,250 ea/ Sodium Chloride) 500 mls @ 250 mls/hr IV PRN PRN; Protocol Vancomycin HCl 1,500 mg/ (Sodium Chloride) 530 mls @ 250 mls/hr IV Q8H [facility] Ketorolac Tromethamine (Toradol) 15 mg IV Q6H PRN PRN PRN Reason: PAIN Stop: 12/27/18 01:12 Last Admin: 12/23/18 03:14 Dose: 15 mg Magnesium Hydroxide (Milk Of Magnesia) 30 ml PO DAILY PRN PRN PRN Reason: Constipation Methocarbamol (Methocarbamol) 750 mg PO Q6H PRN PRN PRN Reason: Muscle Aches Last Admin: 12/22/18 11:00 Dose: 750 mg Nicotine (Nicoderm Cq (Pbkc)) 21 mg TRANSDERM. DAILY [facility] Last Admin: 12/23/18 08:41 Dose: 21 mg Nutritional Formula (Lactose Free) (Ensure Enlive) 120 ml PO 4X/DAY [facility] Last Admin: 12/23/18 08:43 Dose: 120 ml Ondansetron HCl (Zofran) 4 mg IV Q6H PRN PRN PRN Reason: NAUSEA/VOMITING Pramipexole Dihydrochloride (Mirapex) 0.25 mg PO Q12H PRN PRN PRN Reason: Restless Legs Last Admin: 12/22/18 11:00 Dose: 0.25 mg Senna/Docusate Sodium (Senokot-S, Ruby-Colace) 1 tablet PO BID [facility] Last Admin: 12/23/18 08:43 Dose: Not Given Medical Necessity - Tobacco Use Smoking Status: Current every day smoker Tobacco Use: Cigarettes Assessment/Plan All Active Problems (Last Updated 12/22/18 @ 01:41 by Ananth Guerrero MD) Bacteremia (Acute) Sepsis (Acute) Fasciitis (Ruled-out) Polysubstance (including opioids) dependence with physiol dependence (Acute) Right arm cellulitis (Acute) 1. Sepsis: Present on admission. Secondary to right arm cellulitis and bacteremia. Clinically improved at this time. Monitor. 2. Right antecubital cellulitis: Concern for abscess. Will check CT to evaluate and if abscess and will need to consult surgical specialty for incision and drainage. But the overall cellulitis does appear much improved from the demarcation. Continue with vancomycin and discontinue the Zosyn. 3. Gram-positive bacteremia: Likely due to the cellulitis plus or minus abscess. Continue with vancomycin and discontinue Zosyn. Repeat blood cultures. If repeat blood cultures positive then will need an echocardiogram to evaluate for endocarditis. 4. Heroin abuse: Patient has a CINA core of 19. Patient is interested in receiving treatment has he has done this previously had been sober for about 10 years. I discussed with the patient about discontinuing oxycodone for going to be initiating buprenorphine. He stated that he was in agreement to that and stated that we will try to optimize his pain control with nonnarcotics. Patient will also be on other medications to help with his other somatic complaints place here. [facility] to further assist in regards to outpatient management. 5. Right antecubital thrombus: suspect SVT, but may be septic thrombophlebitis. Recommended anticoagulation--he agrees, but may be financially limited as outpt. Start eliquis. Check duplex. Check echo. 6. DVT prophylaxis: Patient is moderate risk. Subcu heparin. Greater than 35 minutes of which greater than 50% of the time was counseling about SVT and treatment. Code Visit Inpatient E&M: 22917 [facility] Hosp L3
--- NOTE | 2018-12-23 09:30 | PN_ITS ---
Patient Problems: Active and Suspected Problems (Last Updated 12/22/18 @ 01:41 by Ananth Guerrero MD) Bacteremia (Acute) Sepsis (Acute) Polysubstance (including opioids) dependence with physiol dependence (Acute) Right arm cellulitis (Acute) Subjective: Increased redness of his right arm. No new complaints. Vitals/I&O's: Vital Signs Temp Pulse Resp BP Pulse Ox 37.3 C 79 16 117/77 98 12/23/18 02:21 12/23/18 02:21 12/23/18 06:00 12/23/18 02:21 12/23/18 07:27 Oxygen Delivery Method Room Air Weight: 80.1 kg Body Mass Index (BMI) 23.9 Intake and Output for Last 24 Hours 12/21/18 12/22/18 12/23/18 23:59 23:59 23:59 Intake Total 3008 / 3008 1396 / 1396 Balance 3008 / 3008 1396 / 1396 General: Alert, No apparent distress HEENT: Atraumatic, Normocephalic Oral: Moist Mucosa, No Gingival or Mucosal Lesions/ Ulcerations Neck: No Nodes, Thyroid Normal Size and Texture Lungs: Clear to auscultation, Normal air movement, No rhonchi, No wheeze Cardiovascular: Regular rate, Regular Rhythm, Normal S1, Normal S2, No murmurs Abdomen: Bowel Sounds Present, Soft, Non Tender, Non-Distended, No Hepato- splenomegaly Extremities: No Calf Tenderness Skin: - - swelling induration, mild erythema in right antecub. Psych/Mental Status: Normal Affect, Appropriate Microbiology Past 72 Hours 12/21/18 19:31 Blood Culture (Wb) - Left Forearm Bacteria Detection (PCR) - Final Staphylococcus aureus mecA Resistance Marker 12/21/18 19:31 Blood Culture (Wb) - Left Forearm Blood Culture - Preliminary Staphylococcus aureus 12/21/18 19:55 Blood Culture (Wb) - Left Hand Blood Culture - Preliminary Staphylococcus aureus 12/22/18 08:45 Blood Culture (Wb) - Left Forearm Blood Culture - Preliminary Staphylococcus aureus Laboratory Results 12/23/18 01:25: Vancomycin Trough 9.6 12/23/18 05:20: WBC 11.3 H, RBC 4.44 L, Hgb 13.1, Hct 39.4 L, MCV 88.7, MCH 29.5, MCHC 33.2, RDW 12.6, RDW Differential 40.4, Plt Count 242, MPV 8.7, Immature Gran % (Auto) 0.300, Neut % (Auto) 76.1 H, Lymph % (Auto) 10.7 L, [place] % (Auto) 9.7, Eos % (Auto) 2.9, Baso % (Auto) 0.3, Absolute Neuts (auto) 8.6 H, Absolute Lymphs (auto) 1.20, Total Counted Not Reportable 12/23/18 05:20: Sodium 137, Potassium 3.7, Chloride 107, Carbon Dioxide 25.0, Anion Gap 5, BUN 13, Creatinine 0.75, Estim Creat Clear Calc 125.02, Est GFR (MDRD) Af Amer 139, Est GFR (MDRD) Non-Af 115, BUN/Creatinine Ratio 17.3, Glucose 144 H, Calcium 8.1 L Current Medications Acetaminophen (Tylenol) 650 mg PO Q6H PRN PRN PRN Reason: FEVER OF > 100.4/PAIN Last Admin: 12/23/18 08:41 Dose: 650 mg Bisacodyl (Dulcolax) 5 mg PO DAILY PRN PRN PRN Reason: Constipation Buprenorphine HCl (Buprenorphine Hcl) 4 mg SL Q8H [facility]; Taper Stop: 12/25/18 14:44 Last Admin: 12/23/18 02:02 Dose: 4 mg Clonidine (Catapres) 0.1 mg PO Q2H PRN PRN PRN Reason: Hot/Cold Sweats or Anxiety Last Admin: 12/22/18 17:16 Dose: 0.1 mg Dicyclomine HCl (Bentyl) 20 mg PO Q6H PRN PRN PRN Reason: Abdomnial Discomfort Last Admin: 12/22/18 17:16 Dose: 20 mg Heparin Sodium (Porcine) (Heparin Na) 5,000 unit SC Q8 [facility] Last Admin: 12/23/18 05:24 Dose: Not Given Hydroxyzine Pamoate (Vistaril Pamoate Capsule) 50 mg PO Q6H PRN PRN PRN Reason: Mild Anxiety Vancomycin IV Pharmacy to Dose (1,250 ea/ Sodium Chloride) 500 mls @ 250 mls/hr IV PRN PRN; Protocol Vancomycin HCl 1,500 mg/ (Sodium Chloride) 530 mls @ 250 mls/hr IV Q8H [facility] Ketorolac Tromethamine (Toradol) 15 mg IV Q6H PRN PRN PRN Reason: PAIN Stop: 12/27/18 01:12 Last Admin: 12/23/18 03:14 Dose: 15 mg Magnesium Hydroxide (Milk Of Magnesia) 30 ml PO DAILY PRN PRN PRN Reason: Constipation Methocarbamol (Methocarbamol) 750 mg PO Q6H PRN PRN PRN Reason: Muscle Aches Last Admin: 12/22/18 11:00 Dose: 750 mg Nicotine (Nicoderm Cq (Pbkc)) 21 mg TRANSDERM. DAILY [facility] Last Admin: 12/23/18 08:41 Dose: 21 mg Nutritional Formula (Lactose Free) (Ensure Enlive) 120 ml PO 4X/DAY [facility] Last Admin: 12/23/18 08:43 Dose: 120 ml Ondansetron HCl (Zofran) 4 mg IV Q6H PRN PRN PRN Reason: NAUSEA/VOMITING Pramipexole Dihydrochloride (Mirapex) 0.25 mg PO Q12H PRN PRN PRN Reason: Restless Legs Last Admin: 12/22/18 11:00 Dose: 0.25 mg Senna/Docusate Sodium (Senokot-S, Ruby-Colace) 1 tablet PO BID [facility] Last Admin: 12/23/18 08:43 Dose: Not Given Medical Necessity - Tobacco Use Smoking Status: Current every day smoker Tobacco Use: Cigarettes Assessment/Plan All Active Problems (Last Updated 12/22/18 @ 01:41 by Ananth Guerrero MD) Bacteremia (Acute) Sepsis (Acute) Fasciitis (Ruled-out) Polysubstance (including opioids) dependence with physiol dependence (Acute) Right arm cellulitis (Acute) 1. Sepsis: Present on admission. Secondary to right arm cellulitis and bacteremia. Clinically improved at this time. Monitor. 2. Right antecubital cellulitis: Concern for abscess. Will check CT to evaluate and if abscess and will need to consult surgical specialty for incision and drainage. But the overall cellulitis does appear much improved from the demarcation. Continue with vancomycin and discontinue the Zosyn. 3. Gram-positive bacteremia: Likely due to the cellulitis plus or minus abscess. Continue with vancomycin and discontinue Zosyn. Repeat blood cultures. If repeat blood cultures positive then will need an echocardiogram to evaluate for endocarditis. 4. Heroin abuse: Patient has a CINA core of 19. Patient is interested in receiving treatment has he has done this previously had been sober for about 10 years. I discussed with the patient about discontinuing oxycodone for going to be initiating buprenorphine. He stated that he was in agreement to that and stated that we will try to optimize his pain control with nonnarcotics. Patient will also be on other medications to help with his other somatic complaints place here. [facility] to further assist in regards to outpatient management. 5. Right antecubital thrombus: suspect SVT, but may be septic thrombophlebitis. Recommended anticoagulation--he agrees, but may be financially limited as outpt. Start eliquis. Check duplex. Check echo. 6. DVT prophylaxis: Patient is moderate risk. Subcu heparin. Greater than 35 minutes of which greater than 50% of the time was counseling about SVT and treatment. Code Visit Inpatient E&M: 05793 [facility] Hosp L3
--- NOTE | 2018-12-23 09:31 | VDUE_ITS ---
Reason For Study: SVT in RUE antecubital area by CT. Right Proximal Right jugular vein is spontaneous, widely patent, phasic, with no intraluminal echogenicity noted. Right subclavian vein is spontaneous, widely patent, phasic, with no intraluminal echogenicity noted. Right Lower Arm Right radial vein is compressible. Right ulnar vein is compressible. Right Arm Right axillary vein is spontaneous, patent, phasic, competent, compressible and demonstrates augmentation. Right brachial vein is compressible. Right cephalic vein is dilated and NON- compressible just below antecubital area to just above antecubital area. Distal and Proximal cephalic vein is compressible. Right basilic vein is compressible. Interpretation Summary Superficial thrombophlebitis right cephalic vein at the antecubital space. No evidence for acute deep venous thrombosis right upper extremity. Patent and compressible right basilic vein Ordering Physician: Steve Diaz Referring Physician: Ananth Guerrero Performed By: Emily Garcia, SADE, RVT ?
--- NOTE | 2018-12-23 09:31 | ECHOD_ITS ---
Reason For Study: Bacteremia Procedure This was a 2D Doppler, Color Flow transthoracic echocardiogram. Exam performed portable in patient room. Left Ventricle Normal LV size. Left ventricular systolic function is normal. The estimated ejection fraction is 65 %. No evidence for diastolic dysfunction. No regional wall motion abnormalities noted. Right Ventricle Normal RV size. Normal systolic function. Atria The left atrium is mildly enlarged. The right atrium is mildly enlarged. Mitral Valve Normal mitral valve. Tricuspid Valve Normal tricuspid valve. Mild (1+) tricuspid valve insufficiency. Pulmonary artery systolic pressure is 25 mmHg. Aortic Valve Normal aortic valve. Trisinus/trileaflet aortic valve. Pulmonic Valve Normal pulmonic valve. Great Vessels Mild to moderately dilated aortic root. The pulmonary artery is normal size. Normal inferior vena cava. Pericardium/Pleural No pericardial effusion. MMode/2D Measurements & Calculations LVIDd: 5.2 cm IVSd: 1.1 cm Ao root diam: 3.9 cm LVIDs: 2.8 cm LVPWd: 1.0 cm LA dimension: 3.4 cm FS: 46.1 % LAV(MOD-sp4): 54.3 ml LA A4 area: 19.6 cm2 RA A4 area: 21.6 cm2 Time Measurements MV dec time: 0.24 sec Doppler Measurements & Calculations MV E max naveen: 87.4 cm/sec Lat Peak E' Naveen: 9.7 cm/sec Med Peak E' Naveen: 9.9 cm/sec MV A max naveen: 75.0 cm/sec E/E' lat: 9.0 E/E' med: 8.8 MV E/A: 1.2 MV V2 max: 103.0 cm/sec MV P1/2t max naveen: 104.0 cm/sec Ao V2 max: 138.9 cm/sec MV max P.2 mmHg MV P1/2t: 107.8 msec Ao max P.7 mmHg MV V2 mean: 65.7 cm/sec MV dec slope: 282.6 cm/sec2 MV mean P.0 mmHg MVA(P1/2t): 2.0 cm2 MV V2 VTI: 35.4 cm LV V1 max: 123.2 cm/sec PA V2 max: 81.4 cm/sec TR max naveen: 234.1 cm/sec LV V1 max P.1 mmHg TR max P.9 mmHg Interpretation Summary Normal LV size. Left ventricular systolic function is normal. The estimated ejection fraction is 65 %. No evidence for diastolic dysfunction. Structurally normal valves. Ordering Physician: Steve Diaz Referring Physician: Ananth Guerrero Performed By: Manuel White RCS
[2018-12-23] MEDS: APIXABAN 5 MG TABLET 10 MG PO ×2 (10:08→21:08)
--- NOTE | 2018-12-23 14:27 | PCM.HP.ID ---
Problem List (1) MRSA bacteremia Status: Acute Reason for Consult: bacteremia Consulted by: Dr. Diaz History of Present Illness: The patient is a 53 year old M with h/o IV cocaine use, then iv heroin use for past 2 months. Has h/o hep C, treated successfully about 5 years ago. No sharing needles. Came to ED with several days of progressive R antecub pain/swelling/redness, no drainage. Pain was severe. Had some fevers with it. No other new joint/back pain. Admitted, on vanc/zosyn, zosyn stopped, MRSA in blood. CT showed DVT in RUE. Full ROS performed and neg except as noted above. - Medical History Allergies/Adverse Reactions: Allergies Penicillins Allergy (Verified 12/21/18 18:31) Rash Home Medications: Ambulatory Orders Medication Instructions Recorded NK 10/18/17 - Social History SMOKING STATUS:: Current every day smoker Drug Use: cocaine, heroin Vital Signs Temp Pulse Resp BP Pulse Ox 98.7 F 68 16 120/70 94 12/23/18 13:31 12/23/18 13:31 12/23/18 13:31 12/23/18 13:31 12/23/18 10:49 Oxygen Delivery Method Room Air Weight: 80.1 kg Body Mass Index (BMI) 23.9 Microbiology Past 72 Hours 12/21/18 19:31 Bacteria Detection (PCR) - Final Blood Culture (Wb) - Left Forearm Staphylococcus aureus mecA Resistance Marker Blood Culture - Preliminary Staphylococcus aureus 12/21/18 19:55 Blood Culture - Preliminary Blood Culture (Wb) - Left Hand Staphylococcus aureus 12/22/18 08:45 Blood Culture - Preliminary Blood Culture (Wb) - Left Forearm Staphylococcus aureus Laboratory Tests Past 24 Hrs 12/23/18 12/23/18 12/23/18 01:25 05:20 05:20 WBC 11.3 H RBC 4.44 L Hgb 13.1 Hct 39.4 L MCV 88.7 MCH 29.5 MCHC 33.2 RDW 12.6 RDW Differential 40.4 Plt Count 242 MPV 8.7 Immature Gran % (Auto) 0.300 Neut % (Auto) 76.1 H Lymph % (Auto) 10.7 L [place] % (Auto) 9.7 Eos % (Auto) 2.9 Baso % (Auto) 0.3 Absolute Neuts (auto) 8.6 H Absolute Lymphs (auto) 1.20 Total Counted Not Reportable Sodium 137 Potassium 3.7 Chloride 107 Carbon Dioxide 25.0 Anion Gap 5 BUN 13 Creatinine 0.75 Estim Creat Clear Calc 125.02 Est GFR (MDRD) Af Amer 139 Est GFR (MDRD) Non-Af 115 BUN/Creatinine Ratio 17.3 Glucose 144 H Calcium 8.1 L Vancomycin Trough 9.6 - Other Studies Radiology: [] reviewed Other Studies: [] Route of nutrition/ use of supplements: [] Nutritional Intake: [] IV Site: [] Mclean Catheter: [] - Physical Exam General: Alert, Oriented x3, Cooperative, No apparent distress HEENT: Atraumatic, PERRLA, EOMI Neck: Supple, No Nodes Lungs: Clear to auscultation, Normal air movement Cardiovascular: Regular rate, Regular Rhythm, Murmur Abdomen: Soft, Non Tender, Non-Distended Extremities: No edema Skin: - - R antecub with improving redness, swelling, induration IV Site: Peripheral, without redness Musculoskeletal: No Tenderness to Palpation of Joints or Extremities, - - no spine tenderness. No splinter hemorrhages on feet Neurological: Cranial nerves II-XII grossly intact - Assessment/Plan Antibiotics: [] Assessment/Plan: [] Active and Suspected Problems (Last Updated 12/22/18 @ 01:41 by Ananth Guerrero MD) Bacteremia (Acute) Sepsis (Acute) Polysubstance (including opioids) dependence with physiol dependence (Acute) Right arm cellulitis (Acute) MRSA bacteremia with IVDU and R antecub septic thrombus. Arm improving, fever better. Continue iv vanc. Echo showed no veg. Doppler of arm pending. If bcx do not clear and arm does not continue to improve, will need vascular surgery eval of arm. Repeat bcx today and tomorrow. IVDU - h/o treated hep C. Will check hiv and hep B studies. Will follow, thank you, d/w Dr. Diaz.
[2018-12-24] VITALS (8 sets, daily range): BP systolic 125–158; BP diastolic 85–94; PULSE 71–87; RESP 16; TEMP 36.8–38.1; O2SAT 96–97
[2018-12-24] MEDS: Buprenorphine HCl 2 MG TAB.SUBL SL ×2 (02:20→14:42)
[2018-12-24] MEDS: Ketorolac 15 MG/ML Vial IV ×3 (06:56→23:15)
--- NOTE | 2018-12-24 09:15 | PCM.PN.HOSP ---
Patient Problems: Active and Suspected Problems (Last Updated 12/22/18 @ 01:41 by Ananth Guerrero MD) MRSA bacteremia (Acute) Septic thrombophlebitis of upper extremities (Acute) Bacteremia (Acute) Sepsis (Acute) Polysubstance (including opioids) dependence with physiol dependence (Acute) Right arm cellulitis (Acute) Subjective: Still with pain, erythema in his right upper extremity. Otherwise feels well. Vitals/I&O's: Vital Signs Temp Pulse Resp BP Pulse Ox 36.8 C 75 16 125/85 H 97 12/24/18 08:50 12/24/18 08:50 12/24/18 08:50 12/24/18 08:50 12/24/18 08:50 Oxygen Delivery Method Room Air Weight: 80.1 kg Body Mass Index (BMI) 23.9 Intake and Output for Last 24 Hours 12/22/18 12/23/18 12/24/18 23:59 23:59 23:59 Intake Total 3008 / 3008 2110 Balance 3008 / 3008 2110 General: Alert, No apparent distress HEENT: Atraumatic, Normocephalic Oral: Moist Mucosa, No Gingival or Mucosal Lesions/ Ulcerations Neck: No Nodes, Thyroid Normal Size and Texture Lungs: Clear to auscultation, Normal air movement, No rhonchi, No wheeze Cardiovascular: Regular rate, Regular Rhythm, Normal S1, Normal S2, No murmurs Abdomen: Bowel Sounds Present, Soft, Non Tender, Non-Distended, No Hepato-splenomegaly Extremities: - - Antecubital swelling with faint erythema and tenderness to palpation. Psych/Mental Status: Normal Affect, Appropriate Microbiology Past 72 Hours 12/21/18 19:31 Blood Culture (Wb) - Left Forearm Bacteria Detection (PCR) - Final Staphylococcus aureus mecA Resistance Marker 12/21/18 19:31 Blood Culture (Wb) - Left Forearm Blood Culture - Final Meth. resistant Staph. aureus 12/22/18 08:45 Blood Culture (Wb) - Left Forearm Blood Culture - Preliminary Staphylococcus aureus 12/21/18 19:55 Blood Culture (Wb) - Left Hand Blood Culture - Final Meth. resistant Staph. aureus Current Medications Acetaminophen (Tylenol) 650 mg PO Q6H PRN PRN PRN Reason: FEVER OF > 100.4/PAIN Last Admin: 12/23/18 17:25 Dose: 650 mg Apixaban (Eliquis) 10 mg PO BID [facility] Last Admin: 12/23/18 21:08 Dose: 10 mg Bisacodyl (Dulcolax) 5 mg PO DAILY PRN PRN PRN Reason: Constipation Buprenorphine HCl (Buprenorphine Hcl) 2 mg SL Q12H [facility]; Taper Stop: 12/25/18 14:44 Last Admin: 12/24/18 02:20 Dose: 2 mg Clonidine (Catapres) 0.1 mg PO Q2H PRN PRN PRN Reason: Hot/Cold Sweats or Anxiety Last Admin: 12/22/18 17:16 Dose: 0.1 mg Dicyclomine HCl (Bentyl) 20 mg PO Q6H PRN PRN PRN Reason: Abdomnial Discomfort Last Admin: 12/22/18 17:16 Dose: 20 mg Hydroxyzine Pamoate (Vistaril Pamoate Capsule) 50 mg PO Q6H PRN PRN PRN Reason: Mild Anxiety Vancomycin IV Pharmacy to Dose (1,250 ea/ Sodium Chloride) 500 mls @ 250 mls/hr IV PRN PRN; Protocol Vancomycin HCl 1,500 mg/ (Sodium Chloride) 530 mls @ 250 mls/hr IV Q8H [facility] Last Admin: 12/24/18 02:20 Dose: 250 mls/hr Ketorolac Tromethamine (Toradol) 15 mg IV Q6H PRN PRN PRN Reason: PAIN Stop: 12/27/18 01:12 Last Admin: 12/24/18 06:56 Dose: 15 mg Magnesium Hydroxide (Milk Of Magnesia) 30 ml PO DAILY PRN PRN PRN Reason: Constipation Methocarbamol (Methocarbamol) 750 mg PO Q6H PRN PRN PRN Reason: Muscle Aches Last Admin: 12/22/18 11:00 Dose: 750 mg Nicotine (Nicoderm Cq (Pbkc)) 21 mg TRANSDERM. DAILY [facility] Last Admin: 12/23/18 08:41 Dose: 21 mg Nutritional Formula (Lactose Free) (Ensure Enlive) 120 ml PO 4X/DAY [facility] Last Admin: 12/23/18 21:11 Dose: Not Given Ondansetron HCl (Zofran) 4 mg IV Q6H PRN PRN PRN Reason: NAUSEA/VOMITING Pramipexole Dihydrochloride (Mirapex) 0.25 mg PO Q12H PRN PRN PRN Reason: Restless Legs Last Admin: 12/22/18 11:00 Dose: 0.25 mg Senna/Docusate Sodium (Senokot-S, Ruby-Colace) 1 tablet PO BID ANTONIO Last Admin: 12/23/18 21:11 Dose: Not Given Medical Necessity - Tobacco Use Smoking Status: Current every day smoker Tobacco Use: Cigarettes Assessment/Plan All Active Problems (Last Updated 12/22/18 @ 01:41 by Ananth Guerrero MD) MRSA bacteremia (Acute) Septic thrombophlebitis of upper extremities (Acute) Bacteremia (Acute) Sepsis (Acute) Fasciitis (Ruled-out) Polysubstance (including opioids) dependence with physiol dependence (Acute) Right arm cellulitis (Acute) 1. Sepsis: Present on admission. Secondary to right arm cellulitis, suspected septic thrombophlebitis, and bacteremia. Clinically improved at this time. Monitor. 2. Right antecubital cellulitis: Improved No abscess. Continue with vancomycin. 3. MRSA bacteremia: Positve 2/2 on 12/21. Positive 1/2 on 12/22. Likely due to the cellulitis plus suspected right septic thrombophlebitis and bacteremia. Continue with vancomycin Echo negative for endocarditis Repeat BCx on 12/23 pending. ID on consult. 4. Right SVT and possible septic thrombophlebitis: SVT on Duplex. If continues to have + BCx, then may need vascular surgery on consult on Eliquis. will need treatment for 3 months. SVT due to IVDA Continue elevation. Warm compresses. 5. Heroin abuse: Patient has a CINA core of 19. Patient is interested in receiving treatment has he has done this previously had been sober for about 10 years. Outpt programs limited due to lack of medical insurance. Patient has been seen by people from since he has been here. He has previously been a sponsor at and very familiar with and appears to be very motivated to maintain sobriety again. 6. DVT prophylaxis: Patient is moderate risk. Anticoagulated. Code Visit Inpatient E&M: 83329 Subs Hosp L2
--- NOTE | 2018-12-24 09:25 | PN_ITS ---
Patient Problems: Active and Suspected Problems (Last Updated 12/22/18 @ 01:41 by Ananth Guerrero MD) MRSA bacteremia (Acute) Septic thrombophlebitis of upper extremities (Acute) Bacteremia (Acute) Sepsis (Acute) Polysubstance (including opioids) dependence with physiol dependence (Acute) Right arm cellulitis (Acute) Subjective: Still with pain, erythema in his right upper extremity. Otherwise feels well. Vitals/I&O's: Vital Signs Temp Pulse Resp BP Pulse Ox 36.8 C 75 16 125/85 H 97 12/24/18 08:50 12/24/18 08:50 12/24/18 08:50 12/24/18 08:50 12/24/18 08:50 Oxygen Delivery Method Room Air Weight: 80.1 kg Body Mass Index (BMI) 23.9 Intake and Output for Last 24 Hours 12/22/18 12/23/18 12/24/18 23:59 23:59 23:59 Intake Total 3008 / 3008 2110 Balance 3008 / 3008 2110 General: Alert, No apparent distress HEENT: Atraumatic, Normocephalic Oral: Moist Mucosa, No Gingival or Mucosal Lesions/ Ulcerations Neck: No Nodes, Thyroid Normal Size and Texture Lungs: Clear to auscultation, Normal air movement, No rhonchi, No wheeze Cardiovascular: Regular rate, Regular Rhythm, Normal S1, Normal S2, No murmurs Abdomen: Bowel Sounds Present, Soft, Non Tender, Non-Distended, No Hepato- splenomegaly Extremities: - - Antecubital swelling with faint erythema and tenderness to palpation. Psych/Mental Status: Normal Affect, Appropriate Microbiology Past 72 Hours 12/21/18 19:31 Blood Culture (Wb) - Left Forearm Bacteria Detection (PCR) - Final Staphylococcus aureus mecA Resistance Marker 12/21/18 19:31 Blood Culture (Wb) - Left Forearm Blood Culture - Final Meth. resistant Staph. aureus 12/22/18 08:45 Blood Culture (Wb) - Left Forearm Blood Culture - Preliminary Staphylococcus aureus 12/21/18 19:55 Blood Culture (Wb) - Left Hand Blood Culture - Final Meth. resistant Staph. aureus Current Medications Acetaminophen (Tylenol) 650 mg PO Q6H PRN PRN PRN Reason: FEVER OF > 100.4/PAIN Last Admin: 12/23/18 17:25 Dose: 650 mg Apixaban (Eliquis) 10 mg PO BID [facility] Last Admin: 12/23/18 21:08 Dose: 10 mg Bisacodyl (Dulcolax) 5 mg PO DAILY PRN PRN PRN Reason: Constipation Buprenorphine HCl (Buprenorphine Hcl) 2 mg SL Q12H [facility]; Taper Stop: 12/25/18 14:44 Last Admin: 12/24/18 02:20 Dose: 2 mg Clonidine (Catapres) 0.1 mg PO Q2H PRN PRN PRN Reason: Hot/Cold Sweats or Anxiety Last Admin: 12/22/18 17:16 Dose: 0.1 mg Dicyclomine HCl (Bentyl) 20 mg PO Q6H PRN PRN PRN Reason: Abdomnial Discomfort Last Admin: 12/22/18 17:16 Dose: 20 mg Hydroxyzine Pamoate (Vistaril Pamoate Capsule) 50 mg PO Q6H PRN PRN PRN Reason: Mild Anxiety Vancomycin IV Pharmacy to Dose (1,250 ea/ Sodium Chloride) 500 mls @ 250 mls/hr IV PRN PRN; Protocol Vancomycin HCl 1,500 mg/ (Sodium Chloride) 530 mls @ 250 mls/hr IV Q8H [facility] Last Admin: 12/24/18 02:20 Dose: 250 mls/hr Ketorolac Tromethamine (Toradol) 15 mg IV Q6H PRN PRN PRN Reason: PAIN Stop: 12/27/18 01:12 Last Admin: 12/24/18 06:56 Dose: 15 mg Magnesium Hydroxide (Milk Of Magnesia) 30 ml PO DAILY PRN PRN PRN Reason: Constipation Methocarbamol (Methocarbamol) 750 mg PO Q6H PRN PRN PRN Reason: Muscle Aches Last Admin: 12/22/18 11:00 Dose: 750 mg Nicotine (Nicoderm Cq (Pbkc)) 21 mg TRANSDERM. DAILY [facility] Last Admin: 12/23/18 08:41 Dose: 21 mg Nutritional Formula (Lactose Free) (Ensure Enlive) 120 ml PO 4X/DAY [facility] Last Admin: 12/23/18 21:11 Dose: Not Given Ondansetron HCl (Zofran) 4 mg IV Q6H PRN PRN PRN Reason: NAUSEA/VOMITING Pramipexole Dihydrochloride (Mirapex) 0.25 mg PO Q12H PRN PRN PRN Reason: Restless Legs Last Admin: 12/22/18 11:00 Dose: 0.25 mg Senna/Docusate Sodium (Senokot-S, Ruby-Colace) 1 tablet PO BID ANTONIO Last Admin: 12/23/18 21:11 Dose: Not Given Medical Necessity - Tobacco Use Smoking Status: Current every day smoker Tobacco Use: Cigarettes Assessment/Plan All Active Problems (Last Updated 12/22/18 @ 01:41 by Ananth Guerrero MD) MRSA bacteremia (Acute) Septic thrombophlebitis of upper extremities (Acute) Bacteremia (Acute) Sepsis (Acute) Fasciitis (Ruled-out) Polysubstance (including opioids) dependence with physiol dependence (Acute) Right arm cellulitis (Acute) 1. Sepsis: Present on admission. Secondary to right arm cellulitis, suspected septic thrombophlebitis, and bacteremia. Clinically improved at this time. Monitor. 2. Right antecubital cellulitis: * Improved * No abscess. * Continue with vancomycin. 3. MRSA bacteremia: * Positve 2/2 on 12/21. Positive 1/2 on 12/22. * Likely due to the cellulitis plus suspected right septic thrombophlebitis and bacteremia. * Continue with vancomycin * Echo negative for endocarditis * Repeat BCx on 12/23 pending. * ID on consult. 4. Right SVT and possible septic thrombophlebitis: * SVT on Duplex. * If continues to have + BCx, then may need vascular surgery on consult * on Eliquis. will need treatment for 3 months. 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 Warm compresses. 5. Heroin abuse: * Patient has a CINA core of 19. Patient is interested in receiving treatment has he has done this previously had been sober for about 10 years. * Outpt programs limited due to lack of medical insurance. * Patient has been seen by people from since he has been here. He has previously been a sponsor at and very familiar with and appears to be very motivated to maintain sobriety again. 6. DVT prophylaxis: Patient is moderate risk. Anticoagulated. Code Visit Inpatient E&M: 40691 Subs Hosp L2
[2018-12-24] MEDS: APIXABAN 5 MG TABLET 10 MG PO ×2 (09:29→23:02)
[2018-12-24 10:06] LABS: Anion Gap 5 (5-15); BUN 11 mg/dL (7-18); BUN/Creat Ratio 14.1 RATIO (10-20); Calcium,Total 7.7 mg/dL (8.5-10.1); Chloride 106 mmol/L (98-107); Creatinine, Serum 0.78 mg/dL (0.70-1.30); EST Glomerular Filtration Rate 111 mL/min (>60); Est Glom Filt Rate - Afr Amer 134 mL/min (>60); Estimated Creatinine Clearance 120.21 ml/min; Glucose 145 mg/dL (74-106); Potassium 3.8 mmol/L (3.5-5.1); Sodium Level 137 mmol/L (136-145)
--- NOTE | 2018-12-24 11:05 | PCM.RX.CS ---
Consult Pharmacy has been consulted to manage selected antiobiotic: Vancomycin Type of Consult: Follow-up Suspected Infection: Sepsis Prior Doses of Antibiotics Received/Current Regimen: Currently on 1500mg iv q8h. Labs: Sodium 137 mmol/L (136-145) 12/24/18 09:25 Potassium 3.8 mmol/L (3.5-5.1) 12/24/18 09:25 Chloride 106 mmol/L (98-107) 12/24/18 09:25 Carbon Dioxide 26.0 mmol/L (21.0-32.0) 12/24/18 09:25 Anion Gap 5 (5-15) 12/24/18 09:25 BUN 11 mg/dL (7-18) 12/24/18 09:25 Creatinine 0.78 mg/dL (0.70-1.30) 12/24/18 09:25 Est GFR (MDRD) Af Amer 134 mL/min (>60) 12/24/18 09:25 Est GFR (MDRD) Non-Af 111 mL/min (>60) 12/24/18 09:25 BUN/Creatinine Ratio 14.1 RATIO (10-20) 12/24/18 09:25 Glucose 145 mg/dL (74-106) H 12/24/18 09:25 Vancomycin Trough 14.0 ug/mL (5.0-15.0) 12/24/18 09:25 Microbiology: Microbiology 12/21/18 19:31 Blood Culture (Wb) - Left Forearm Bacteria Detection (PCR) - Final Staphylococcus aureus mecA Resistance Marker 12/21/18 19:31 Blood Culture (Wb) - Left Forearm Blood Culture - Final Meth. resistant Staph. aureus 12/22/18 08:45 Blood Culture (Wb) - Left Forearm Blood Culture - Preliminary Staphylococcus aureus 12/21/18 19:55 Blood Culture (Wb) - Left Hand Blood Culture - Final Meth. resistant Staph. aureus Weight used for dosin.1 kg Estimated Creatinine Clearance: 120ml/min Goal Trough: 15-20 mcg/mL Pharmacy Plan for Drug Dosing: Trough level of 12.24.18 was 14 (goal range 15-20 mcg/ml). Will continue same dose and get repeat trough level in AM 12.25.18 to see if increases to goal range. Pharmacy Service will continue to monitor and adjust dosing as required. Follow-Up Labs: Trough Vancomycin - 12.25.19 @0930 before 1000 dose
[2018-12-24] MEDS: hydrOXYzine PAM 25 MG Capsule 50 MG PO (23:15)
[2018-12-25] MEDS: Buprenorphine HCl 2 MG TAB.SUBL SL (02:09)
[2018-12-25 05:23] VITALS: BP 153/103; PULSE 85; RESP 18; TEMP 36.6; O2SAT 96
--- NOTE | 2018-12-25 09:37 | PCM.PN.HOSP ---
Patient Problems: Active and Suspected Problems (Last Updated 12/22/18 @ 01:41 by Ananth Guerrero MD) MRSA bacteremia (Acute) Sepsis (Acute) Polysubstance (including opioids) dependence with physiol dependence (Acute) Subjective: Feels that his right arm is getting worse--increased erythema and swelling. Vitals/I&O's: Vital Signs Temp Pulse Resp BP Pulse Ox 36.6 C 85 18 153/103 H 96 12/25/18 05:23 12/25/18 05:23 12/25/18 05:23 12/25/18 05:23 12/25/18 05:23 Oxygen Delivery Method Room Air Weight: 80.1 kg Body Mass Index (BMI) 23.9 Intake and Output for Last 24 Hours 12/23/18 12/24/18 12/25/18 23:59 23:59 23:59 Intake Total 2110 1000 / 1000 1879 Balance 2110 1000 / 1000 1879 General: Alert, No apparent distress HEENT: Atraumatic, Normocephalic Oral: Moist Mucosa, No Gingival or Mucosal Lesions/ Ulcerations Neck: No Nodes, Thyroid Normal Size and Texture Lungs: Clear to auscultation, Normal air movement, No rhonchi, No wheeze Cardiovascular: Regular rate, Regular Rhythm, Normal S1, Normal S2 Abdomen: Bowel Sounds Present, Soft, Non Tender, Non-Distended, No Hepato-splenomegaly Extremities: - - increased extention of erythema and swelling and palpable cords in right atecubitus. palpable cords extending proximally and distally. decreased tenderness. Psych/Mental Status: Normal Affect, Appropriate Microbiology Past 72 Hours 12/22/18 08:35 Blood Culture (Wb) - Anticubital Left Blood Culture - Preliminary Staphylococcus aureus 12/22/18 08:45 Blood Culture (Wb) - Left Forearm Blood Culture - Preliminary Staphylococcus aureus 12/21/18 19:31 Blood Culture (Wb) - Left Forearm Bacteria Detection (PCR) - Final Staphylococcus aureus mecA Resistance Marker 12/21/18 19:31 Blood Culture (Wb) - Left Forearm Blood Culture - Final Meth. resistant Staph. aureus 12/21/18 19:55 Blood Culture (Wb) - Left Hand Blood Culture - Final Meth. resistant Staph. aureus Laboratory Results 12/24/18 09:25: Vancomycin Trough 14.0 12/24/18 09:25: Sodium 137, Potassium 3.8, Chloride 106, Carbon Dioxide 26.0, Anion Gap 5, BUN 11, Creatinine 0.78, Estim Creat Clear Calc 120.21, Est GFR (MDRD) Af Amer 134, Est GFR (MDRD) Non-Af 111, BUN/Creatinine Ratio 14.1, Glucose 145 H, Calcium 7.7 L 12/25/18 09:05: Vancomycin Trough Pending Current Medications Acetaminophen (Tylenol) 650 mg PO Q6H PRN PRN PRN Reason: FEVER OF > 100.4/PAIN Last Admin: 12/23/18 17:25 Dose: 650 mg Apixaban (Eliquis) 10 mg PO BID ANTONIO Last Admin: 12/24/18 23:02 Dose: 10 mg Bisacodyl (Dulcolax) 5 mg PO DAILY PRN PRN PRN Reason: Constipation Buprenorphine HCl (Buprenorphine Hcl) 2 mg SL Q12H ANTONIO; Taper Stop: 12/25/18 14:44 Last Admin: 12/25/18 02:09 Dose: 2 mg Clonidine (Catapres) 0.1 mg PO Q2H PRN PRN PRN Reason: Hot/Cold Sweats or Anxiety Last Admin: 12/22/18 17:16 Dose: 0.1 mg Dicyclomine HCl (Bentyl) 20 mg PO Q6H PRN PRN PRN Reason: Abdomnial Discomfort Last Admin: 12/22/18 17:16 Dose: 20 mg Hydroxyzine Pamoate (Vistaril Pamoate Capsule) 50 mg PO Q6H PRN PRN PRN Reason: Mild Anxiety Last Admin: 12/24/18 23:15 Dose: 50 mg Vancomycin IV Pharmacy to Dose (1,250 ea/ Sodium Chloride) 500 mls @ 250 mls/hr IV PRN PRN; Protocol Vancomycin HCl 1,500 mg/ (Sodium Chloride) 530 mls @ 250 mls/hr IV Q8H ANTONIO Last Admin: 12/25/18 02:09 Dose: 250 mls/hr Ketorolac Tromethamine (Toradol) 15 mg IV Q6H PRN PRN PRN Reason: PAIN Stop: 12/27/18 01:12 Last Admin: 12/24/18 23:15 Dose: 15 mg Magnesium Hydroxide (Milk Of Magnesia) 30 ml PO DAILY PRN PRN PRN Reason: Constipation Methocarbamol (Methocarbamol) 750 mg PO Q6H PRN PRN PRN Reason: Muscle Aches Last Admin: 12/22/18 11:00 Dose: 750 mg Nicotine (Nicoderm Cq (Pbkc)) 21 mg TRANSDERM. DAILY [facility] Last Admin: 12/24/18 09:28 Dose: 21 mg Nutritional Formula (Lactose Free) (Ensure Enlive) 120 ml PO 4X/DAY [facility] Last Admin: 12/24/18 22:49 Dose: Not Given Ondansetron HCl (Zofran) 4 mg IV Q6H PRN PRN PRN Reason: NAUSEA/VOMITING Pramipexole Dihydrochloride (Mirapex) 0.25 mg PO Q12H PRN PRN PRN Reason: Restless Legs Last Admin: 12/22/18 11:00 Dose: 0.25 mg Senna/Docusate Sodium (Senokot-S, Ruby-Colace) 1 tablet PO BID [facility] Last Admin: 12/24/18 22:51 Dose: Not Given Medical Necessity - Tobacco Use Smoking Status: Current every day smoker Tobacco Use: Cigarettes Assessment/Plan All Active Problems (Last Updated 12/22/18 @ 01:41 by Ananth Guerrero MD) Septic thrombophlebitis of upper extremities (Acute) MRSA bacteremia (Acute) Bacteremia (Acute) Sepsis (Acute) Fasciitis (Ruled-out) Polysubstance (including opioids) dependence with physiol dependence (Acute) Right arm cellulitis (Acute) 1. Sepsis: Present on admission. Secondary to right arm cellulitis, suspected septic thrombophlebitis, and bacteremia. Clinically improved at this time. Monitor. 2. Right antecubital cellulitis: Improved No abscess on CT Continue with vancomycin. 3. MRSA bacteremia: Positve 2/2 on 12/21. Positive 2/2 on 12/22. Likely due to the cellulitis plus suspected right septic thrombophlebitis and bacteremia. Continue with vancomycin Echo negative for endocarditis Repeat BCx on 12/23 pending. Will give another day to ensure sterility. ID on consult. 4. Right SVT and possible septic thrombophlebitis: SVT on Duplex. If continues to have + BCx, then may need vascular surgery on consult on Eliquis. will need treatment for 3 months. SVT due to IVDA Continue elevation. Warm compresses. Subjectively and objectively worsened. No change to management at this time. Reassurance provided. Will recheck duplex on 12/26 5. Heroin abuse: Patient had a CINA core of 19. Patient is interested in receiving treatment has he has done this previously had been sober for about 10 years. Outpt programs limited due to lack of medical insurance. Patient has been seen by people from since he has been here. He has previously been a sponsor at and very familiar with and appears to be very motivated to maintain sobriety again. 6. DVT prophylaxis: Patient is moderate risk. Anticoagulated. Code Visit Inpatient E&M: 54346 Subs Hosp L2
--- NOTE | 2018-12-25 09:41 | PN_ITS ---
Patient Problems: Active and Suspected Problems (Last Updated 12/22/18 @ 01:41 by Ananth Guerrero MD) MRSA bacteremia (Acute) Sepsis (Acute) Polysubstance (including opioids) dependence with physiol dependence (Acute) Subjective: Feels that his right arm is getting worse--increased erythema and swelling. Vitals/I&O's: Vital Signs Temp Pulse Resp BP Pulse Ox 36.6 C 85 18 153/103 H 96 12/25/18 05:23 12/25/18 05:23 12/25/18 05:23 12/25/18 05:23 12/25/18 05:23 Oxygen Delivery Method Room Air Weight: 80.1 kg Body Mass Index (BMI) 23.9 Intake and Output for Last 24 Hours 12/23/18 12/24/18 12/25/18 23:59 23:59 23:59 Intake Total 2110 1000 / 1000 1879 Balance 2110 1000 / 1000 1879 General: Alert, No apparent distress HEENT: Atraumatic, Normocephalic Oral: Moist Mucosa, No Gingival or Mucosal Lesions/ Ulcerations Neck: No Nodes, Thyroid Normal Size and Texture Lungs: Clear to auscultation, Normal air movement, No rhonchi, No wheeze Cardiovascular: Regular rate, Regular Rhythm, Normal S1, Normal S2 Abdomen: Bowel Sounds Present, Soft, Non Tender, Non-Distended, No Hepato-splen omegaly Extremities: - - increased extention of erythema and swelling and palpable cords in right atecubitus. palpable cords extending proximally and distally. decreased tenderness. Psych/Mental Status: Normal Affect, Appropriate Microbiology Past 72 Hours 12/22/18 08:35 Blood Culture (Wb) - Anticubital Left Blood Culture - Preliminary Staphylococcus aureus 12/22/18 08:45 Blood Culture (Wb) - Left Forearm Blood Culture - Preliminary Staphylococcus aureus 12/21/18 19:31 Blood Culture (Wb) - Left Forearm Bacteria Detection (PCR) - Final Staphylococcus aureus mecA Resistance Marker 12/21/18 19:31 Blood Culture (Wb) - Left Forearm Blood Culture - Final Meth. resistant Staph. aureus 12/21/18 19:55 Blood Culture (Wb) - Left Hand Blood Culture - Final Meth. resistant Staph. aureus Laboratory Results 12/24/18 09:25: Vancomycin Trough 14.0 12/24/18 09:25: Sodium 137, Potassium 3.8, Chloride 106, Carbon Dioxide 26.0, Anion Gap 5, BUN 11, Creatinine 0.78, Estim Creat Clear Calc 120.21, Est GFR (MDRD) Af Amer 134, Est GFR (MDRD) Non-Af 111, BUN/Creatinine Ratio 14.1, Glucose 145 H, Calcium 7.7 L 12/25/18 09:05: Vancomycin Trough Pending Current Medications Acetaminophen (Tylenol) 650 mg PO Q6H PRN PRN PRN Reason: FEVER OF > 100.4/PAIN Last Admin: 12/23/18 17:25 Dose: 650 mg Apixaban (Eliquis) 10 mg PO BID ANTONIO Last Admin: 12/24/18 23:02 Dose: 10 mg Bisacodyl (Dulcolax) 5 mg PO DAILY PRN PRN PRN Reason: Constipation Buprenorphine HCl (Buprenorphine Hcl) 2 mg SL Q12H ANTONIO; Taper Stop: 12/25/18 14:44 Last Admin: 12/25/18 02:09 Dose: 2 mg Clonidine (Catapres) 0.1 mg PO Q2H PRN PRN PRN Reason: Hot/Cold Sweats or Anxiety Last Admin: 12/22/18 17:16 Dose: 0.1 mg Dicyclomine HCl (Bentyl) 20 mg PO Q6H PRN PRN PRN Reason: Abdomnial Discomfort Last Admin: 12/22/18 17:16 Dose: 20 mg Hydroxyzine Pamoate (Vistaril Pamoate Capsule) 50 mg PO Q6H PRN PRN PRN Reason: Mild Anxiety Last Admin: 12/24/18 23:15 Dose: 50 mg Vancomycin IV Pharmacy to Dose (1,250 ea/ Sodium Chloride) 500 mls @ 250 mls/hr IV PRN PRN; Protocol Vancomycin HCl 1,500 mg/ (Sodium Chloride) 530 mls @ 250 mls/hr IV Q8H ANTONIO Last Admin: 12/25/18 02:09 Dose: 250 mls/hr Ketorolac Tromethamine (Toradol) 15 mg IV Q6H PRN PRN PRN Reason: PAIN Stop: 12/27/18 01:12 Last Admin: 12/24/18 23:15 Dose: 15 mg Magnesium Hydroxide (Milk Of Magnesia) 30 ml PO DAILY PRN PRN PRN Reason: Constipation Methocarbamol (Methocarbamol) 750 mg PO Q6H PRN PRN PRN Reason: Muscle Aches Last Admin: 12/22/18 11:00 Dose: 750 mg Nicotine (Nicoderm Cq (Pbkc)) [address] [facility] Last Admin: 12/24/18 09:28 Dose: 21 mg Nutritional Formula (Lactose Free) (Ensure Enlive) 120 ml PO 4X/DAY [facility] Last Admin: 12/24/18 22:49 Dose: Not Given Ondansetron HCl (Zofran) 4 mg IV Q6H PRN PRN PRN Reason: NAUSEA/VOMITING Pramipexole Dihydrochloride (Mirapex) 0.25 mg PO Q12H PRN PRN PRN Reason: Restless Legs Last Admin: 12/22/18 11:00 Dose: 0.25 mg Senna/Docusate Sodium (Senokot-S, Ruby-Colace) [address] [facility] Last Admin: 12/24/18 22:51 Dose: Not Given Medical Necessity - Tobacco Use Smoking Status: Current every day smoker Tobacco Use: Cigarettes Assessment/Plan All Active Problems (Last Updated 12/22/18 @ 01:41 by Ananth Guerrero MD) Septic thrombophlebitis of upper extremities (Acute) MRSA bacteremia (Acute) Bacteremia (Acute) Sepsis (Acute) Fasciitis (Ruled-out) Polysubstance (including opioids) dependence with physiol dependence (Acute) Right arm cellulitis (Acute) 1. Sepsis: Present on admission. Secondary to right arm cellulitis, suspected septic thrombophlebitis, and bacteremia. Clinically improved at this time. Monitor. 2. Right antecubital cellulitis: * Improved * No abscess on CT * Continue with vancomycin. 3. MRSA bacteremia: * Positve 2/2 on 12/21. Positive 2/2 on 12/22. * Likely due to the cellulitis plus suspected right septic thrombophlebitis and bacteremia. * Continue with vancomycin * Echo negative for endocarditis * Repeat BCx on 12/23 pending. Will give another day to ensure sterility. * ID on consult. 4. Right SVT and possible septic thrombophlebitis: * SVT on Duplex. * If continues to have + BCx, then may need vascular surgery on consult * on Eliquis. will need treatment for 3 months. 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 Warm compresses. * Subjectively and objectively worsened. No change to management at this time. Reassurance provided. Will recheck duplex on 12/26 5. Heroin abuse: * Patient had a CINA core of 19. Patient is interested in receiving treatment has he has done this previously had been sober for about 10 years. * Outpt programs limited due to lack of medical insurance. * Patient has been seen by people from since he has been here. He has previously been a sponsor at and very familiar with and appears to be very motivated to maintain sobriety again. 6. DVT prophylaxis: Patient is moderate risk. Anticoagulated. Code Visit Inpatient E&M: 85026 Subs Hosp L2
[2018-12-25 09:48] LABS: Vancomycin, Trough Level 17.1 ug/mL (5.0-15.0)
--- NOTE | 2018-12-25 10:39 | PCM.RX.CS ---
Consult Pharmacy has been consulted to manage selected antiobiotic: Vancomycin Type of Consult: Follow-up Suspected Infection: Sepsis Prior Doses of Antibiotics Received/Current Regimen: Currently on 1500mg iv q8h Labs: Sodium 137 mmol/L (136-145) 12/24/18 09:25 Potassium 3.8 mmol/L (3.5-5.1) 12/24/18 09:25 Chloride 106 mmol/L (98-107) 12/24/18 09:25 Carbon Dioxide 26.0 mmol/L (21.0-32.0) 12/24/18 09:25 Anion Gap 5 (5-15) 12/24/18 09:25 BUN 11 mg/dL (7-18) 12/24/18 09:25 Creatinine 0.78 mg/dL (0.70-1.30) 12/24/18 09:25 Est GFR (MDRD) Af Amer 134 mL/min (>60) 12/24/18 09:25 Est GFR (MDRD) Non-Af 111 mL/min (>60) 12/24/18 09:25 BUN/Creatinine Ratio 14.1 RATIO (10-20) 12/24/18 09:25 Glucose 145 mg/dL (74-106) H 12/24/18 09:25 Vancomycin Trough 17.1 ug/mL (5.0-15.0) H 12/25/18 09:05 Microbiology: Microbiology 12/22/18 08:35 Blood Culture (Wb) - Anticubital Left Blood Culture - Preliminary Staphylococcus aureus 12/22/18 08:45 Blood Culture (Wb) - Left Forearm Blood Culture - Preliminary Staphylococcus aureus 12/21/18 19:31 Blood Culture (Wb) - Left Forearm Bacteria Detection (PCR) - Final Staphylococcus aureus mecA Resistance Marker 12/21/18 19:31 Blood Culture (Wb) - Left Forearm Blood Culture - Final Meth. resistant Staph. aureus 12/21/18 19:55 Blood Culture (Wb) - Left Hand Blood Culture - Final Meth. resistant Staph. aureus Weight used for dosin.1 kg Estimated Creatinine Clearance: 120ml/min Goal Trough: 15-20 mcg/mL Pharmacy Plan for Drug Dosing: Trough level this AM 12.25.18 was 17.1 (goal range 15-20 mcg/ml). Renal function Cr 0.78 with CrCl ~120ml/min. Will continue same dose and get repeat trough level in 4 days on 12.29.18. Pharmacy Service will continue to monitor and adjust dosing as required. Follow-Up Labs: Trough Vancomycin - 12.29.18 @0930 before 1000 dose
[2018-12-25 11:00] VITALS: BP 153/90; PULSE 89; RESP 16; TEMP 36.7; O2SAT 98
[2018-12-25] MEDS: APIXABAN 5 MG TABLET 10 MG PO ×2 (11:03→22:12)
[2018-12-25] MEDS: Ketorolac 15 MG/ML Vial IV ×2 (11:09→22:12)
[2018-12-25 15:54] VITALS: BP 162/94; PULSE 88; RESP 18; TEMP 37.3; O2SAT 94
[2018-12-25 20:06] LABS: HEPATITIS B SURFACE AG Negative (Negative)
[2018-12-25 22:07] VITALS: BP 143/91; PULSE 80; RESP 18; TEMP 36.9; O2SAT 98
[2018-12-26] MEDS: hydrOXYzine PAM 25 MG Capsule 50 MG PO (00:15)
[2018-12-26] MEDS: Acetaminophen 325 MG Tablet 650 MG PO (00:16)
[2018-12-26 04:18] VITALS: BP 133/86; PULSE 84; RESP 18; TEMP 36.8; O2SAT 98
[2018-12-26 06:26] LABS: Anion Gap 7 (5-15); BUN 9 mg/dL (7-18); BUN/Creat Ratio 15.1 RATIO (10-20); Calcium,Total 8.3 mg/dL (8.5-10.1); Chloride 106 mmol/L (98-107); EST Glomerular Filtration Rate 150 mL/min (>60); Est Glom Filt Rate - Afr Amer 182 mL/min (>60); Estimated Creatinine Clearance 156.28 ml/min; Glucose 136 mg/dL (74-106); Potassium 3.6 mmol/L (3.5-5.1); Sodium Level 137 mmol/L (136-145)
--- NOTE | 2018-12-26 09:36 | DCINST_ITS ---
- Discharge Diagnoses Current Active Problems: Current Active and Chronic Problems (Last Updated 12/22/18 @ 01:41 by Ananth Guerrero MD) MRSA bacteremia (Acute) Sepsis (Acute) Polysubstance (including opioids) dependence with physiol dependence (Acute) You will use the following diet at home:: No restrictions Your food should be the consistency of: Regular Your liquids should be the consistency of: Regular/Thin Discharge Activity: Return to Normal Activity Call your doctor if your incision/area has: Continuous Slow Oozing, Increased Pain/ Swelling, Increased Redness Call your doctor if you observe: Fever of 101 or Higher Additional Instructions: Keep right arm elevated as much as possible. Warm compress/heating pad to right arm as needed. Allergies/Adverse Reactions: Allergies Penicillins Allergy (Verified 12/21/18 18:31) Rash Medications to take at Discharge Acetaminophen [Tylenol Tablet] 500 mg PO Q4H PRN tablet 12/26/18 Apixaban [Eliquis] 5 mg PO BID #75 tablet 12/26/18 Ibuprofen 3 - 4 tab PO TID PRN #1 tablet 12/26/18 Linezolid [Zyvox] 600 mg PO BID #22 tablet 12/26/18 Omeprazole 20 mg PO DAILY #1 tab 12/26/18 The following prescriptions were given: Omeprazole 20 mg PO DAILY #1 tab. Apixaban [Eliquis] 5 mg PO BID #75 tablet Linezolid [Zyvox] 600 mg PO BID #22 tablet Ibuprofen 3 - 4 tab PO TID PRN #1 tablet PRN Reason: Pain Primary Care Physician: Bruce Le DO [Primary Care Provider] - Within 2 Weeks Test Results: Test results from this visit will be discussed in further detail at your follow- up appointment, if applicable. Proposed Discharge Date: 12/26/18
--- NOTE | 2018-12-26 09:36 | PCM.WORK.EX ---
Work/School Excuse Work/School Excuse for:: Patient Please excuse this person from:: Work From: 12/21/18 through: 12/26/18 Restrictions: Light Duty
--- NOTE | 2018-12-26 09:37 | PCM.DC.SUM ---
Discharge Date and Diagnosis - Problem List Patient Problems: Active and Suspected Problems (Last Updated 12/22/18 @ 01:41 by Ananth Guerrero MD) Septic thrombophlebitis of upper extremities (Acute) MRSA bacteremia (Acute) Sepsis (Acute) Polysubstance (including opioids) dependence with physiol dependence (Acute) Right arm cellulitis (Acute) Date of Admission: 12/21/18 Date of Discharge: 12/26/18 - Primary Discharge Diagnosis Active and Suspected Problems (Last Updated 12/22/18 @ 01:41 by Ananth Guerrero MD) MRSA bacteremia (Acute) Sepsis (Acute) Polysubstance (including opioids) dependence with physiol dependence (Acute) 1. Sepsis: Present on admission. Secondary to right arm cellulitis, suspected septic thrombophlebitis, and bacteremia. Clinically improved at this time. Monitor. 2. Right antecubital cellulitis: Improved No abscess on CT Continue with vancomycin. 3. MRSA bacteremia: Positve 2/2 on 12/21. Positive 2/2 on 12/22. Likely due to the cellulitis plus suspected right septic thrombophlebitis and bacteremia. Continue with vancomycin Echo negative for endocarditis Repeat BCx on 12/23 negative DW infectious disease: patient to complete 2 weeks of abx after last negative culture. Recommends Zyvox. 4. Right SVT and possible septic thrombophlebitis: SVT on Duplex. No DVT on Eliquis. will need treatment for 3 months. SVT due to IVDA Continue elevation. Warm compresses. 5. Heroin abuse: Patient had a CINA core of 19. Patient is interested in receiving treatment has he has done this previously had been sober for about 10 years. Outpt programs limited due to lack of medical insurance. Patient has been seen by people from since he has been here. He has previously been a sponsor at and very familiar with and appears to be very motivated to maintain sobriety again. Hospital Course and Treatment Imaging Results: Clinical Impression(s) from Imaging Studies Upper Extremity CT 12/22/18 09:33 IMPRESSION: Thrombus in the antecubital veins. Soft tissue swelling without demonstrated abscess or osteomyelitis. Electronically Signed: Arsenio Snow MD at 11:36 EDT Tel , Service support , Consultations 12/22/18 05:57 Consult: Paulino Donato Routine Consulting Provider: Consulted Physician Type:: Paulino Donato Reason for consult:: interested in detoxing off opiates while in hospital Bruce Sinclair MD: ID Operations: [email or web address] Procedures: 2-D Echocardiogram Summary of Care Provided: The patient is a 53 year old M is with pain swelling and redness at the right antecubital area. Initial concern was for fasciitis but patient was neurovascular intact but is actually more concerned with cellulitis and possible septic thrombophlebitis as patient did have an SVT in that region. Patient did have positive blood cultures for MRSA. Patient's blood cultures on were negative. Infectious disease recommends 2 weeks of antibiotics after his last negative blood culture and be transition over to Zyvox. Patient does have an SVT and did have 2 ultrasounds that confirmed as such no involvement of the deep system. However given the infection patient will be on Eliquis. This related patient that there is no definitive evidence to support the use of Eliquis for infectious thrombophlebitis but it is encouraged. Patient was advised to bleeding risks. Patient has no insurance and will receive a 30-day supply here from the hospital will need to obtain it for the remaining 2months through primary care provider other resources. Patient was seen in consultation by Paulino Donato facilitate addiction management as outpatient. Patient was enrolled in the morphine protocol while he was here. His course was uncomplicated from that perspective. [] Patient Problems: Active and Suspected Problems (Last Updated 12/22/18 @ 01:41 by Ananth Guerrero MD) Septic thrombophlebitis of upper extremities (Acute) MRSA bacteremia (Acute) Sepsis (Acute) Polysubstance (including opioids) dependence with physiol dependence (Acute) Right arm cellulitis (Acute) - Physical Exam General: Alert, No apparent distress HEENT: Atraumatic, Normocephalic Extremities: - - Still with erythema and palpable cords in the right antecubital region. Still some mild erythema. Vital Signs Temp Pulse Resp BP Pulse Ox 36.8 C 84 18 133/86 H 98 12/26/18 04:18 12/26/18 04:18 12/26/18 04:18 12/26/18 04:18 12/26/18 04:18 Oxygen Delivery Method Room Air Weight: 80.1 kg Body Mass Index (BMI) 23.9 Intake and Output for Last 24 Hours 12/24/18 12/25/18 12/26/18 23:59 23:59 23:59 Intake Total 1000 / 1000 4315 / 4315 1780 / 1780 Balance 1000 / 1000 4315 / 4315 1780 / 1780 Microbiology Past 72 Hours 12/22/18 08:35 Blood Culture - Preliminary Blood Culture (Wb) - Anticubital Left Staphylococcus aureus 12/22/18 08:45 Blood Culture - Preliminary Blood Culture (Wb) - Left Forearm Staphylococcus aureus 12/21/18 19:31 Bacteria Detection (PCR) - Final Blood Culture (Wb) - Left Forearm Staphylococcus aureus mecA Resistance Marker Blood Culture - Final Meth. resistant Staph. aureus 12/21/18 19:55 Blood Culture - Final Blood Culture (Wb) - Left Hand Meth. resistant Staph. aureus Laboratory Tests Past 24 Hrs 12/25/18 12/26/18 09:05 05:44 Sodium 137 Potassium 3.6 Chloride 106 Carbon Dioxide 24.0 Anion Gap 7 BUN 9 Creatinine 0.60 L Estim Creat Clear Calc 156.28 Est GFR (MDRD) Af Amer 182 Est GFR (MDRD) Non-Af 150 BUN/Creatinine Ratio 15.1 Glucose 136 H Calcium 8.3 L Vancomycin Trough 17.1 H Discharge Diet: No Restrictions Discharge Activity: Return to Normal Activity Return to work on:: 12/27/18 Call your doctor if your incision/area has: Continuous Slow Oozing, Increased Pain/ Swelling, Increased Redness Call your doctor if you observe: Fever of 101 or Higher Home Medications: Medications to take at Discharge Acetaminophen [Tylenol Tablet] 500 mg PO Q4H PRN tablet 12/26/18 Apixaban [Eliquis] 5 mg PO BID #75 tablet 12/26/18 Ibuprofen 3 - 4 tab PO TID PRN #1 tablet 12/26/18 Linezolid [Zyvox] 600 mg PO BID #22 tablet 12/26/18 Omeprazole 20 mg PO DAILY #1 tab 12/26/18 Following Prescrptions Were Given to Patient: Omeprazole 20 mg PO DAILY #1 tab Apixaban [Eliquis] 5 mg PO BID #75 tablet Linezolid [Zyvox] 600 mg PO BID #22 tablet Ibuprofen 3 - 4 tab PO TID PRN #1 tablet PRN Reason: Pain Primary Care Physician: Bruce Le DO [Primary Care Provider] - Within 2 Weeks Disposition: Home Minutes spent on discharge:: 35 Patient Condition:: Good Medical Necessity - Tobacco Use Smoking Status: Current every day smoker Tobacco Use: Cigarettes Meaningful Use Info Meaningful Use Diagnoses (Choose all that apply): None applicable Code Visit Inpatient E&M: 78362 Disch Hosp
--- NOTE | 2018-12-26 09:42 | VDUE_ITS ---
Reason For Study: SVT cephalic vein @ antecube(12/23/18), worsening redness and pain. Right Proximal Right jugular vein is spontaneous, widely patent, phasic, with no intraluminal echogenicity noted. Right subclavian vein is spontaneous, widely patent, phasic, with no intraluminal echogenicity noted. Right Lower Arm Right radial vein is compressible. Right ulnar vein is compressible. Right Arm Right axillary vein is spontaneous, patent, phasic, competent, compressible and demonstrates augmentation. Right brachial vein is compressible. Right cephalic vein is non-compressible and dilated at mid forearm to just past antecube. Right cephalic vein as disstal forearm and upper arm (beyond antecube) are compressible. Right basilic vein at antecube is dilated and non-compressible. Balance of basilic vein is compressible. Interpretation Summary Preliminary results to [facility] and Dr. Diaz. Superficial thrombophlebitis right cephalic vein mid forearm and antecubital space. Supficial thrombophlebitis right basilic vein antecubital space The basilic vein superficial thrombophlebitis is new since 12/23/18 Ordering Physician: Steve Diaz Referring Physician: Ananth Guerrero Performed By: Emily Garcia, SADE, RVT ?
--- NOTE | 2018-12-26 09:42 | DS.PCM_ITS ---
Discharge Date and Diagnosis - Problem List Patient Problems: Active and Suspected Problems (Last Updated 12/22/18 @ 01:41 by Ananth Guerrero MD) Septic thrombophlebitis of upper extremities (Acute) MRSA bacteremia (Acute) Sepsis (Acute) Polysubstance (including opioids) dependence with physiol dependence (Acute) Right arm cellulitis (Acute) Date of Admission: 12/21/18 Date of Discharge: 12/26/18 - Primary Discharge Diagnosis Active and Suspected Problems (Last Updated 12/22/18 @ 01:41 by Ananth Guerrero MD) MRSA bacteremia (Acute) Sepsis (Acute) Polysubstance (including opioids) dependence with physiol dependence (Acute) 1. Sepsis: Present on admission. Secondary to right arm cellulitis, suspected septic thrombophlebitis, and bacteremia. Clinically improved at this time. Monitor. 2. Right antecubital cellulitis: * Improved * No abscess on CT * Continue with vancomycin. 3. MRSA bacteremia: * Positve 2/2 on 12/21. Positive 2/2 on 12/22. * Likely due to the cellulitis plus suspected right septic thrombophlebitis and bacteremia. * Continue with vancomycin * Echo negative for endocarditis * Repeat BCx on 12/23 negative * DW infectious disease: patient to complete 2 weeks of abx after last negative culture. Recommends Zyvox. 4. Right SVT and possible septic thrombophlebitis: * SVT on Duplex. No DVT * on Eliquis. will need treatment for 3 months. 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 Warm compresses. 5. Heroin abuse: * Patient had a CINA core of 19. Patient is interested in receiving treatment has he has done this previously had been sober for about 10 years. * Outpt programs limited due to lack of medical insurance. * Patient has been seen by people from since he has been here. He has previously been a sponsor at and very familiar with and appears to be very motivated to maintain sobriety again. Hospital Course and Treatment Imaging Results: Clinical Impression(s) from Imaging Studies Upper Extremity CT 12/22/18 09:33 IMPRESSION: Thrombus in the antecubital veins. Soft tissue swelling without demonstrated abscess or osteomyelitis. Electronically Signed: Arsenio Snow MD at 11:36 EDT Tel , Service support , Consultations 12/22/18 05:57 Consult: Paulino Donato Routine Consulting Provider: Consulted Physician Type:: Paulino Donato Reason for consult:: interested in detoxing off opiates while in hospital Bruce Sinclair MD: ID Operations: herniorrhaphy Procedures: 2-D Echocardiogram Summary of Care Provided: The patient is a 53 year old M is with pain swelling and redness at the right antecubital area. Initial concern was for fasciitis but patient was neurovascular intact but is actually more concerned with cellulitis and possible septic thrombophlebitis as patient did have an SVT in that region. Patient did have positive blood cultures for MRSA. Patient's blood cultures on were negative. Infectious disease recommends 2 weeks of antibiotics after his last negative blood culture and be transition over to Zyvox. Patient does have an SVT and did have 2 ultrasounds that confirmed as such no involvement of the deep system. However given the infection patient will be on Eliquis. This related patient that there is no definitive evidence to support the use of Eliquis for infectious thrombophlebitis but it is encouraged. Patient was advised to bleeding risks. Patient has no insurance and will receive a 30-day supply here from the hospital will need to obtain it for the remaining 2months through primary care provider other resources. Patient was seen in consultation by Paulino Donato facilitate addiction management as outpatient. Patient was enrolled in the morphine protocol while he was here. His course was uncomplicated from that perspective. [] Patient Problems: Active and Suspected Problems (Last Updated 12/22/18 @ 01:41 by Ananth Guerrero MD) Septic thrombophlebitis of upper extremities (Acute) MRSA bacteremia (Acute) Sepsis (Acute) Polysubstance (including opioids) dependence with physiol dependence (Acute) Right arm cellulitis (Acute) - Physical Exam General: Alert, No apparent distress HEENT: Atraumatic, Normocephalic Extremities: - - Still with erythema and palpable cords in the right antecubital region. Still some mild erythema. Vital Signs Temp Pulse Resp BP Pulse Ox 36.8 C 84 18 133/86 H 98 12/26/18 04:18 12/26/18 04:18 12/26/18 04:18 12/26/18 04:18 12/26/18 04:18 Oxygen Delivery Method Room Air Weight: 80.1 kg Body Mass Index (BMI) 23.9 Intake and Output for Last 24 Hours 12/24/18 12/25/18 12/26/18 23:59 23:59 23:59 Intake Total 1000 / 1000 4315 / 4315 1780 / 1780 Balance 1000 / 1000 4315 / 4315 1780 / 1780 Microbiology Past 72 Hours 12/22/18 08:35 Blood Culture - Preliminary Blood Culture (Wb) - Anticubital Left Staphylococcus aureus 12/22/18 08:45 Blood Culture - Preliminary Blood Culture (Wb) - Left Forearm Staphylococcus aureus 12/21/18 19:31 Bacteria Detection (PCR) - Final Blood Culture (Wb) - Left Forearm Staphylococcus aureus mecA Resistance Marker Blood Culture - Final Meth. resistant Staph. aureus 12/21/18 19:55 Blood Culture - Final Blood Culture (Wb) - Left Hand Meth. resistant Staph. aureus Laboratory Tests Past 24 Hrs 12/25/18 12/26/18 09:05 05:44 Sodium 137 Potassium 3.6 Chloride 106 Carbon Dioxide 24.0 Anion Gap 7 BUN 9 Creatinine 0.60 L Estim Creat Clear Calc 156.28 Est GFR (MDRD) Af Amer 182 Est GFR (MDRD) Non-Af 150 BUN/Creatinine Ratio 15.1 Glucose 136 H Calcium 8.3 L Vancomycin Trough 17.1 H Discharge Diet: No Restrictions Discharge Activity: Return to Normal Activity Return to work on:: 12/27/18 Call your doctor if your incision/area has: Continuous Slow Oozing, Increased Pain/ Swelling, Increased Redness Call your doctor if you observe: Fever of 101 or Higher Home Medications: Medications to take at Discharge Acetaminophen [Tylenol Tablet] 500 mg PO Q4H PRN tablet 12/26/18 Apixaban [Eliquis] 5 mg PO BID #75 tablet 12/26/18 Ibuprofen 3 - 4 tab PO TID PRN #1 tablet 12/26/18 Linezolid [Zyvox] 600 mg PO BID #22 tablet 12/26/18 Omeprazole 20 mg PO DAILY #1 tab 12/26/18 Following Prescrptions Were Given to Patient: Omeprazole 20 mg PO DAILY #1 tab Apixaban [Eliquis] 5 mg PO BID #75 tablet Linezolid [Zyvox] 600 mg PO BID #22 tablet Ibuprofen 3 - 4 tab PO TID PRN #1 tablet PRN Reason: Pain Primary Care Physician: Bruce Le DO [Primary Care Provider] - Within 2 Weeks Disposition: Home Minutes spent on discharge:: 35 Patient Condition:: Good Medical Necessity - Tobacco Use Smoking Status: Current every day smoker Tobacco Use: Cigarettes Meaningful Use Info Meaningful Use Diagnoses (Choose all that apply): None applicable Code Visit Inpatient E&M: 85039 Disch Hosp
[2018-12-26 09:45] VITALS: BP 143/91; PULSE 87; RESP 18; TEMP 36.8; O2SAT 98
--- NOTE | 2018-12-26 09:49 | CASEMGMT ---
Social Work Note Physician states pt will be discharged on PO Antibiotics. SW completed RX assist program, tubed copy to retail pharmacy. Lynne Freed ARTS THERAPIST, WEAVE DEFECT CHARTING CLERK
[2018-12-26] MEDS: Ketorolac 15 MG/ML Vial IV (09:52)
[2018-12-26] MEDS: APIXABAN 5 MG TABLET 10 MG PO (09:55)
[2018-12-26 10:04] LABS: HIV - WCH Non-Reactive (Nonreactive)
[2018-12-26 11:08] LABS: Hepatitis B Core Ab Total Negative (Negative)
[2018-12-26 12:53] VITALS: BP 141/83; PULSE 85; RESP 16; TEMP 36.8; O2SAT 98
--- NOTE | 2018-12-27 14:56 | CASEMGMT ---
IVETTE CM Discharge Follow-Up Phone Call. Lace: 9 Strata: 3 Discharge Date: 12/26/18 Adm Dx: Sepsis secondary to fascitis. Attempted discharge follow-up phone call. Call placed to phone number listed on demographics. Recording states, Welcome to [facility]. The number you dialed has been changed, disconnected, or no longer in service. Attempted number x 2 and received same recording. Amadeo DEWITT RN CM
== END 2018-12-26 12:54 | disposition home or self-care (01) | DRG 872 ==
LOC: ED 21:40 → MS3 12-22 00:27 → MS2 12-22 00:47 → MS3 12-24 16:34
PROVIDERS: Internal Medicine Infectious Disease; Admitting Provider Hospitalist; Emergency Provider Emergency Medicine; Family Provider Preventive Medicine Occupational Medicine; PCP Preventive Medicine Occupational Medicine; Referring Provider Hospitalist
DX: A41.02 Sepsis due to Methicillin resistant Staphylococcus aureus (principal); L03.113 Cellulitis of right upper limb; E87.1 Hypo-osmolality and hyponatremia; I82.611 Acute embolism and thrombosis of superficial veins of right upper extremity; Z86.19 Personal history of other infectious and parasitic diseases; F17.210 Nicotine dependence, cigarettes, uncomplicated; I80.8 Phlebitis and thrombophlebitis of other sites; F11.10 Opioid abuse, uncomplicated
CPT/HCPCS: 36415; 73200; 80048; 80202; 83605; 85025; 86703; 86704; 87040; 87077; 87149; 87186; 87340; 93306; 93971; 97802; 99284; J7030; J7040; J7050; Q9967; A4216

== ENCOUNTER 2019-06-01 02:58 | Inpatient (IN) | payer SELFPAY ==
[2018-12-22 01:14] VITALS: BMI 23.9
[2019-06-01] VITALS (21 sets, daily range): BP systolic 134–168; BP diastolic 79–124; PULSE 74–127; RESP 14–25; TEMP 35.8–37.2; O2SAT 77–99; BMI 27.9; BMI 24.6
--- NOTE | 2019-06-01 03:13 | EKG12_ITS ---
Test Reason : OD Blood Pressure : / mmHG Vent. Rate : 111 BPM Atrial Rate : 111 BPM P-R Int : 164 ms QRS Dur : 104 ms QT Int : 348 ms P-R-T Axes : 067 067 013 degrees QTc Int : 473 ms Sinus tachycardia Otherwise normal ECG Confirmed by JOVANNI THOA, INÉS ([id number]), visual effects editor JUAN PISANO ([id number]) on 06/06/2019 10:25:14 AM Referred By: Marilyn Vicente Confirmed By:LIBIA BAIG MD
--- NOTE | 2019-06-01 03:13 | RAD_ITS ---
STUDY: X-RAY CHEST REASON FOR EXAM: Male, 54 years old. Overdose TECHNIQUE: Single AP portable view of the chest. Limited patient cooperation. COMPARISON: 04/09/2016. FINDINGS: There are superimposed monitor leads. Interstitial and mild alveolar opacification in the right lung . Areas of hyperinflation are stable. There is no demonstrated pleural abnormality. Normal size heart. Normal mediastinum and martin. Normal visualized pulmonary arteries. Normal visualized aortic arch and descending thoracic aorta. Normal visualized thoracic spine. Normal visualized ribs, clavicles, and shoulders. There is no demonstrated abnormality of the visualized soft tissue structures of the upper abdomen. RAD/Chest 1 View (Portable) IMPRESSION: Airspace disease in the right lung may be due to inhalation/aspiration. No confluent pneumonia detected. Electronically Signed: Francine Kerr MD at 3:42 EDT , Service support ,
[2019-06-01] MEDS: 0.9% Normal Saline 1,000 ML 1000 ML IV (03:17)
[2019-06-01] MEDS: Ondansetron 4 MG/2 ML Vial IV (03:23)
[2019-06-01 03:24] LABS: Absolute Lymphocyte Count 4.44 X10^3/uL (0.83-4.51); Absolute Neutrophil Count 8.1 X10^3/uL (2.0-7.7); Basophil# 0.11 X10^3/uL; Basophil% 0.7 % (0-1); Eosinophil# 0.58 X10^3/uL; Eosinophils% 3.9 % (0-5); Hematocrit 46.2 % (40-54); Hemoglobin 14.8 g/dL (13.0-16.5); Lymphocyte # 4.44 X10^3/ul (4.0); Lymphocyte % 29.7 % (19-41); Mean Corpuscular Volume 96.9 fL (80-94); Mean Platelet Vol. 8.8 fl (6.2-12.0); Monocyte# 1.47 X10^3/uL; Monocyte% 9.8 % (0-10); NRBC Flagged by Analyzer 0 % (0-5); Neutrophil # 8.08 X10^3/uL (2.7-7.7); POSITIVE MORPHOLOGY YES; Platelet Count 275 K/mm3 (150-450); RBC Distribution Width CV 12.8 % (11.6-14.6); RBC Distribution Width SD 45.8 fl (35.1-43.9); Red Blood Count 4.77 M/mm3 (4.6-6.2)
[2019-06-01 03:27] LABS: Differential Indicated SCAN CRITERIA MET
--- NOTE | 2019-06-01 03:33 | ED.RN ---
PT IS SOMNOLENT UPON ARRIVAL WITH AN ASHEN ORTIZ COLOR. NON-REBREATHER PLACED TO KEEP OXYGEN SATURATION UP. RN X 2 AT BEDSIDE WITH MD. FRESH TRACK BOWMAN ON FOREARMS. PT DENIES ILLICIT DRUG USE BY NOT DIRECTLY ANSWERING THE QUESTION WITH EITHER YES OR NO, STATES HE HAD A FEW BEERS TONIGHT. PTS SHIRT WAS REMOVED, ITS COLD AND WET. EMS STATE ICE CUBES WERE PLACED IN HIS POCKETS. PT DOESN'T LIKE TO ANSWER QUESTIONS BUT WILL CLEARLY ASK FOR A BLANKET. PT PREFERS TO LAY ON HIS RIGHT SIDE. MULTIPLE BLANKETS WERE PLACED ON PT. WILL CONTINUE TO MONITOR AND PROVIDE APPROPRIATE OXYGEN SATURATION.
--- NOTE | 2019-06-01 03:47 | ED.RN ---
PT BRINGING UP LARGE AMOUNTS OF PHLEGM, SOME OF WHICH LANDED ON THE FLOOR. PT DOES NOT USE CALL LIGHT THAT WAS PROVIDED OR REACHES FOR EMESIS BAG THAT WAS PROVIDED. PT ENCOURAGED TO STOP SPITTING ON FLOOR.
[2019-06-01 04:18] LABS: Anion Gap 12 (5-15); BUN 17 mg/dL (7-18); BUN/Creat Ratio 13.4 RATIO (10-20); Chloride 104 mmol/L (98-107); Creatinine, Serum 1.27 mg/dL (0.70-1.30); EST Glomerular Filtration Rate 63 mL/min (>60); Est Glom Filt Rate - Afr Amer 76 mL/min (>60); Estimated Creatinine Clearance 66.49 ml/min; Glucose 384 mg/dL (74-106); Sodium Level 140 mmol/L (136-145)
--- NOTE | 2019-06-01 04:22 | ED.RN ---
CALLED LAB PT/PTT/INR IS STILL NOT RECEIVED. GARRISON FROM LAB STATES NO BLUE TOP IN LAB. HE WILL SEND LABELS BACK.
--- NOTE | 2019-06-01 04:29 | HP.PCM_ITS ---
Problem List (1) Acute respiratory failure with hypoxia Status: Acute (2) Aspiration pneumonitis Status: Acute (3) Overdose Status: Acute Qualifiers: Encounter type: initial encounter Injury intent: undetermined intent Qualified Code(s): T50.904A - Poisoning by unspecified drugs, medicaments and biological substances, undetermined, initial encounter (4) Hyperglycemia Status: Acute (5) Tobacco use Status: Chronic (6) Hepatitis C Status: Chronic Qualifiers: Viral hepatitis chronicity: unspecified Hepatic coma status: without hepatic coma Qualified Code(s): B19.20 - Unspecified viral hepatitis C without hepatic coma (7) Polysubstance (including opioids) dependence with physiol dependence Status: Chronic History of Present Illness Date of Admission: 06/01/19 Chief Complaint: Overdose The patient is a 54 y/o M w/ PMHx: Diabetes mellitus type II, history of hepatitis C associate with IV drug abuse, polysubstance abuse (Heroin, Cannabis, Cocaine), EtOH Abuse ( > 3-6 beers daily), Tobacco use, Hx Prior MRSA Bacteremia secondary to IVDA w/ R SVT and possible septic thrombophlebitis 12/2018 (completed Eliquis x 3 months) who presents to the [facility] ED on 06/01/19 with history of overdose following usage of cocaine via IV method at approximately midnight on evening of presentation with noted aspiration event, found by family, was noted to be possibly unresponsive prompting them to initiate CPR following which he vomited. Per report EMS administered 6 mg nasal narcan with some improvement; however, patient required an additional 2 mg upon ED arrival. Work-up in the ED included initially T 96.9, heart rate 127, BP 168/124, respiratory rate 24, 77% room air--> heart rate 104, BP 155/95, respiratory rate 22, 98% on 4 L nasal cannula, CBC with WBC 15, hemoglobin 14.8, platelet 275 with left shift, BMP with glucose 384, troponin less than 0.015, chest x-ray with right lower lobe airspace disease suspicious for aspiration/inhalation. In the ED patient ministered Levaquin, Flagyl, Narcan, Zofran, normal saline. Past Medical History Past Medical History (Chronic Problems): Chronic Problems (This Medical Record has been edited. Action required.) Tobacco use (Chronic) Hepatitis C (Chronic) Polysubstance (including opioids) dependence with physiol dependence (Chronic) Medical History: Medical History (This Medical Record has been edited. Action required.) Polysubstance dependence F19.20 Allergies Penicillins Allergy (Verified 05/29/19 15:14) Rash Home Medications: Ambulatory Orders Medication Instructions Recorded Acetaminophen [Tylenol Tablet] 500 mg PO Q4H PRN tablet 12/26/18 Apixaban [Eliquis] 5 mg PO BID #75 tablet 12/26/18 Ibuprofen 3 - 4 tab PO TID PRN #1 tablet 12/26/18 Linezolid [Zyvox] 600 mg PO BID #22 tablet 12/26/18 Omeprazole 20 mg PO DAILY #1 tab. 12/26/18 Surgical History: tonsillectomy Psychiatric History: Anxiety, Depression Lives: With Family Smoking Status: Current every day smoker - 1 pack/day cigarette tobacco usage. Tobacco Use: Cigarettes Alcohol: Heavy Drugs: Cocaine, Heroin, Marijuana - *Family History Maternal History Items: Hypertension Paternal History Items: Diabetes, Heart Disease, Hypertension Review of Systems Constitutional: Reports: Malaise, Weakness, Fatigue. Denies: Chills, Fever, Weight Change HEENT: Denies: Head Aches, Sinus Congestion, Sinus Drainage Cardiovascular: Denies: Chest Pain, Palpitations Respiratory: Reports: Cough, Shortness of Breath, Shortness of breath at rest, Shortness of breath upon exertion. Denies: Sputum production Gastrointestinal: Denies: Abdominal Pain, Nausea, Vomiting Genitourinary: Denies: Dysuria Musculoskeletal: Denies: Joint Pain, Joint Tenderness Skin: Reports: Skin Changes. Denies: Rash, Wounds Neurological: Reports: Confusion. Denies: Focal weakness, Numbness, Tingling Psychiatric: Reports: Anxiety, Depression. Denies: Homicidal Ideations, Suicidal Ideations Hematologic/ Lymphatic: Denies: Easy Bruising, Easy Bleeding VTE Information - Inpt Only VTE Present on Admission: No VTE Mechan Device Prophylaxis: SCD's VTE Pharm Prophylaxis ordered?: Yes Patient Problems: Active and Suspected Problems (This Medical Record has been edited. Action required.) Acute respiratory failure with hypoxia (Acute) Aspiration pneumonitis (Acute) Overdose (Acute) Hyperglycemia (Acute) Subjective: Seated upright in ED bed, fatigued appearance, smelling of tobacco and alcohol, clinically improved from initial presentation now transition to nasal cannula. Objective: Physical Examination: General: awake, alert, oriented x 3 and cooperative, seated upright in the ED bed, disheveled, smelling of tobacco and alcohol, respiratory status is markedly improved, transition to nasal cannula, no current recurrent evidence of respiratory distress. Skin: normal color, turgor, no icterus, cyanosis, evidence of IV drug abuse. HEENT: AT/NC, EOMI, PERRLA, dry MM, no carotid bruits or JVD noted. Lungs: Diminished breath sounds throughout, greater bilateral bases, right greater than left, mildly coarse right base, no wheezing. Heart: Mildly tachycardic with regular rhythm; no gallop, rub audible. Abdomen: soft, NTTP, ND, normal BS, no HSM. Extremities: no cyanosis, clubbing, or edema. Neurological: patient awake, alert, oriented x 3; cognitive function intact; pupils equally reactive to light and accomodation; cranial nerves II-XII grossly normal, moving all 4 extremities, no focal deficits, strength moderately to severely global decrease secondary to acute presentation. Psychiatric: affect appears fatigued, no acute evidence of depressive or anxiety feelings. - Physical Exam Vital Signs Temp Pulse Resp BP Pulse Ox 96.9 F L 104 H 22 H 155/95 H 98 06/01/19 02:59 06/01/19 04:08 06/01/19 04:08 06/01/19 04:08 06/01/19 04:08 Oxygen Flow Rate (L/min) 4 Oxygen Delivery Method Nasal Cannula Weight: 189 lb 6.033 oz Body Mass Index (BMI) 27.9 Intake and Output for Last 24 Hours 05/30/19 05/31/19 06/01/19 23:59 23:59 23:59 Intake Total 1000 / 1000 Balance 1000 / 1000 Laboratory Tests Past 24 Hrs 06/01/19 06/01/19 03:10 03:10 WBC 15.0 H RBC 4.77 Hgb 14.8 Hct 46.2 MCV 96.9 H MCH 31.0 MCHC 32.0 RDW Std Deviation 45.8 H RDW Coeff of Viviana 12.8 Plt Count 275 MPV 8.8 Immature Gran % (Auto) 1.900 H Neut % (Auto) 54.0 Lymph % (Auto) 29.7 [place] % (Auto) 9.8 Eos % (Auto) 3.9 Baso % (Auto) 0.7 Absolute Neuts (auto) 8.1 H Absolute Lymphs (auto) 4.44 Nucleated RBC % 0 Sodium 140 Potassium 4.0 Chloride 104 Carbon Dioxide 24.0 Anion Gap 12 BUN 17 Creatinine 1.27 Estim Creat Clear Calc 66.49 Est GFR (MDRD) Af Amer 76 Est GFR (MDRD) Non-Af 63 BUN/Creatinine Ratio 13.4 Glucose 384 H Calcium 8.0 L Troponin I < 0.015 Assessment/Plan All Active Problems (This Medical Record has been edited. Action required.) Acute respiratory failure with hypoxia (Acute) Aspiration pneumonitis (Acute) Overdose (Acute) Hyperglycemia (Acute) Septic thrombophlebitis of upper extremities (Acute) MRSA bacteremia (Acute) Bacteremia (Acute) Sepsis (Acute) Fasciitis (Ruled-out) Right arm cellulitis (Acute) The patient is a 54 y/o M w/ PMHx: Diabetes mellitus type II, history of hepatitis C associate with IV drug abuse, polysubstance abuse , EtOH Abuse, Tobacco use who presents to the [facility] ED on 06/01/19 with history of overdose foll owing usage of cocaine via IV method at approximately midnight on evening of presentation with noted aspiration event, found by family, was noted to be possibly unresponsive prompting them to initiate CPR following which he vomited. 1. Acute hypoxic respiratory failure secondary to acute heroin overdose with suspected aspiration: Will admit to MS on telemetry given notable clinical improvement, no usage of narcan x 1.5 hours upon evaluation, oxygenation appropriate. Will maintain on oxygen with wean as tolerated to room air, continue ATC duonebs, PRN albuterol, maintained on IV Flagyl and Levaquin given allergy history, HOB, IS parameters. 2. Hyperglycemia: Admission glucose 384, hemoglobin A1c pending, maintain on Accu-Cheks and insulin sliding scale pending results. 3. Polysubstance Abuse, IVDA with history hepatitis C: Most recent presentation 12/24/18 with negative hepatitis B and negative HIV; however, although patient has discontinued IV heroin usage he is using cocaine intravenously thus we will repeat HIV and hepatitis panel. Patient notes that he has already received treatment in the past for hepatitis C. Urine drug screen and alcohol level requested and pending. Case management consulted. 4. EtOH Abuse: Patient notes only a couple of beers daily; however, prior history noting routine consumption of least 6 beers per day. Given current presentation will maintain on CIWA protocol, MVI, thiamine and folic acid. If necessary may transition to protocol. Mag and Phos requested. Alcohol level requested and pending. 5. Tobacco Abuse: Encouraged cessation, inpatient consultation per RT, NR if desired. 6. GERD: Omeprazole. 7. DVT prophylaxis: SCDs, Lovenox. Code Visit Inpatient E&M: 43650 Init Hosp L3
[2019-06-01] MEDS: levoFLOXacin IV 750 MG/150 ML BAG 100 MG IV (04:39)
[2019-06-01 04:55] LABS: Vista UDS pH Range 6
--- NOTE | 2019-06-01 04:57 | ED.DCSUM_ITS ---
- ER Visit Summary Date of Service: 06/01/19 Chief Complaint: Overdose History of Present Illness: The patient is a 54 M with a history of marijuana, heroin, and cocaine abuse. Presents by EMS for an apparent opioid overdose. He was found by significant other unresponsive and not breathing. It sounds like she attempted CPR and then he vomited. EMS found him with respiratory depression and unresponsive. He was treated with a total of 6 mg of Narcan and did have improvement of his breathing status and mental status. Patient reports chills, nausea, and vomiting. Denies any other associated symptoms. Physical Examination: Afebrile. Tachycardic. Hypoxic. Skin slightly lawrence /cyanotic. Patient is somnolent but arouses to voice. Head and neck atraumatic. Lungs diminished in all mckeon. Heart tachycardic but regular. He does have track causey to his left upper extremity. Test Results: EKG showed sinus rhythm at a rate of 111 with a shivering artifact. Chest x-ray showed findings consistent with right lung aspiration injury. White count 15 and glucose 384. Troponin normal. Emergency Department Course and Treatment: On arrival, patient has continued hypoxia and he is somnolent. He received an additional 2 mg of Narcan and did have some improvement in both his mental status and oxygenation. He was 94% on a nonrebreather mask. He was treated with Zofran. On reevaluation, he was oxygenating better and switched to nasal cannula. His mental status had improved and he was more cooperative. He did have a leukocytosis and hyperglycemia. His x-ray was concerning for aspiration injury. He was treated with Flagyl and Levaquin. Patient had some continued mild tachycardia. He was overall doing well, but had some borderline oxygen saturations, requiring nasal cannula. He seems to be mentating well about 90 minutes after his last dose of Narcan, so I do not suspect any further mental status or respiratory status deterioration. I am concerned given his initial presentation with hypoxia and cyanosis, plus his leukocytosis and aspiration. I contacted the hospitalist. She evaluated the patient and felt that he would meet inpatient criteria and advised MedSurg with telemetry. Treatment Plan: As above Disposition: Admission Impression: 1. Narcotic overdose 2. Aspiration 3. Hyperglycemia This note was generated with [employer] software. It may contain incorrect words, spelling, and punctuation that were not noted in review of the chart prior to signing ED Disposition - Plan for ED Patient: Referrals: Bruce Le DO [Primary Care Provider] -
[2019-06-01 05:14] LABS: Alcohol, Blood (Medical)-Serum < 3.0 mg/dL
[2019-06-01 05:14] LABS: Benzodiazepine Urine VISTA NEGATIVE (< 200 ng/mL); Ecstacy Urine VISTA POSITIVE (< 500 ng/mL); Methadone Urine VISTA NEGATIVE (< 300 ng/mL); PCP Urine VISTA NEGATIVE (< 25 ng/mL)
[2019-06-01 05:15] LABS: Amphetamine Urine VISTA POSITIVE (<1000 ng/mL); Barbiturate Urine VISTA NEGATIVE (< 200 ng/mL); Cocaine Urine VISTA POSITIVE (< 300 ng/mL); THC Urine VISTA POSITIVE (< 50 ng/mL)
[2019-06-01 05:49] LABS: Magnesium 2.8 mg/dL (1.6-2.6)
--- NOTE | 2019-06-01 05:52 | NURSING ---
pt states he does not take any medications at home.
[2019-06-01] MEDS: 0.9% Normal Saline 1,000 ML 150 ML IV (06:45)
[2019-06-01] MEDS: metroNIDAZOLE 500 MG/100 ML BAG 100 MG IV (06:49)
[2019-06-01 07:00] LABS: Bedside Glucose 100 mg/dL (70-110)
[2019-06-01] MEDS: Ipratropium/Albuterol Sulfate 3 ML AMPUL.NEB INHALATION ×4 (07:20→18:46)
[2019-06-01 07:42] LABS: Hemoglobin A1c 5.6 % (4.2-6.3)
[2019-06-01 10:07] LABS: HIV - WCH Non-Reactive (Nonreactive)
[2019-06-01] MEDS: guaiFENesin 1,200 MG Tablet 1200 MG PO ×2 (10:22→22:23)
[2019-06-01] MEDS: Pantoprazole Sodium 20 MG Tablet PO (10:22)
[2019-06-01] MEDS: Enoxaparin 40 MG/0.4 ML Syringe SC (10:22)
--- NOTE | 2019-06-01 11:15 | CASEMGMT ---
This RN CM to room to complete CM assessment and pt is sleeping without distress at this time. Pt does not awaken to verbal stimuli or knock on the door at this time. Will attempt again later. SStaten RN CM
--- NOTE | 2019-06-01 11:50 | PCM.HOSP.N ---
Hospitalist Note Pt seen in f/u. Tox + for THC/Amphetamines/Cocaine. No opiates on board. Continue abx but change to ertapenem from quinolone/Flagyl to decrease risk of c-diff. Would treat for 5-7 days. A1c was 5.6. Will d/c carb control diet at BGT's. No sign of withdrawal at this time from EtOH--continue to monitor. D/C IVF.
[2019-06-01 12:00] LABS: Bedside Glucose 97 mg/dL (70-110)
--- NOTE | 2019-06-01 15:42 | CASEMGMT ---
SW attempted to see patient twice today for self pay and substance abuse. However, both times he was sleeping and did not wake when SW said his name. SW will continue to attempt to see patient. Melinda ALICEA MSW
[2019-06-01] MEDS: 0.9% NaCl Peripheral Flush Adult/Peds IV (18:22)
[2019-06-02] VITALS (9 sets, daily range): BP systolic 127–139; BP diastolic 73–84; PULSE 88–99; RESP 12–18; TEMP 36.6–37.3; O2SAT 93–97
[2019-06-02 06:02] LABS: Absolute Lymphocyte Count 1.51 X10^3/uL (0.83-4.51); Absolute Neutrophil Count 9.9 X10^3/uL (2.0-7.7); Basophil# 0.02 X10^3/uL; Basophil% 0.2 % (0-1); Eosinophils% 2.4 % (0-5); Hematocrit 41.8 % (40-54); Hemoglobin 13.7 g/dL (13.0-16.5); Lymphocyte # 1.51 X10^3/ul (4.0); Lymphocyte % 12.1 % (19-41); Mean Corp Hgb Conc 32.8 g/dL (32-36); Mean Corpuscular Hgb 30.2 pg (27.0-32.0); Mean Corpuscular Volume 92.3 fL (80-94); Mean Platelet Vol. 8.6 fl (6.2-12.0); Monocyte# 0.72 X10^3/uL; Monocyte% 5.8 % (0-10); NRBC Flagged by Analyzer 0 % (0-5); Neutrophil % 78.9 % (47-70); Platelet Count 250 K/mm3 (150-450); RBC Distribution Width CV 13.1 % (11.6-14.6); RBC Distribution Width SD 43.8 fl (35.1-43.9); Red Blood Count 4.53 M/mm3 (4.6-6.2); White Blood Count 12.5 K/mm3 (4.4-11.0)
[2019-06-02 06:42] LABS: ALB/GLOB Ratio 0.9 RATIO (0.9-2.4); AST(SGOT) 120 U/L (15-37); Alanine Aminotransfer ALT/SGPT 310 U/L (16-61); Albumin, Serum 2.8 g/dL (3.2-5.0); Alkaline Phosphatase 72 U/L (45-117); Anion Gap 6 (5-15); BUN 12 mg/dL (7-18); Calcium,Total 8.2 mg/dL (8.5-10.1); Chloride 107 mmol/L (98-107); Creatinine, Serum 0.93 mg/dL (0.70-1.30); EST Glomerular Filtration Rate 90 mL/min (>60); Est Glom Filt Rate - Afr Amer 109 mL/min (>60); Estimated Creatinine Clearance 99.67 ml/min; Globulin 3.2 g/dL (2.2-4.2); Glucose 148 mg/dL (74-106); Potassium 3.9 mmol/L (3.5-5.1); Sodium Level 140 mmol/L (136-145)
[2019-06-02] MEDS: Ipratropium/Albuterol Sulfate 3 ML AMPUL.NEB INHALATION ×3 (07:35→18:53)
[2019-06-02] MEDS: Enoxaparin 40 MG/0.4 ML Syringe SC (09:38)
[2019-06-02] MEDS: guaiFENesin 1,200 MG Tablet 1200 MG PO ×2 (09:39→21:09)
[2019-06-02] MEDS: Pantoprazole Sodium 20 MG Tablet PO (09:40)
--- NOTE | 2019-06-02 10:01 | CASEMGMT ---
Assessment- 06-02-19 Living situation- Patient lives alone in a 2 story apartment PCP: Dr Bruce Le Specialists: None Pharmacy: None DME: None ADL's/IADL's: Patient is independent in all activities of daily living Past SNF/rehab: None Past HH: None LW: None POA: None SW spoke with patient about his drug use. He said he has all the resources he needs, it is just a matter of doing it. He said he needs to separate himself from all the people he hangs with that use drugs. This is difficult for him. He and his have . He did an assessment at [facility]. He declines need for any further resources. SW also spoke with him about being self pay. 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 He would not qualify for Medicaid. SW gave him information on [facility]. He is not on any medications. He denies any other needs. Melinda ALICEA MSW
[2019-06-02 11:07] LABS: HEPATITIS B SURFACE AG Negative (Negative); Hepatitis A AB, Total Negative (Negative); Hepatitis A IgM Antibody Negative (Negative); Hepatitis B Core AB IgM Negative (Negative); Hepatitis B Core Ab Total Negative (Negative)
[2019-06-02 12:47] LABS: Hep B Surface Antibodies Non Reactive (.)
[2019-06-02 12:59] LABS: Hepatitis C Ab >11.0 s/co ratio (0.0-0.9)
--- NOTE | 2019-06-02 13:00 | RAD_ITS ---
STUDY: X-RAY CHEST REASON FOR EXAM: Male, 54 years old. Shortness of breath/dyspnea. TECHNIQUE: PA and lateral views of the chest. COMPARISON: Comparison is made with prior examination June 01, 2019. FINDINGS: Since prior examination, there has been improved aeration of both lungs as well as resolution of the mild degree of vascular congestion. Minimal residual increased interstitial markings are seen at the lung bases suggestive of linear atelectasis and/or scarring. There is blunting of the left costophrenic angle. Normal size heart. Normal mediastinum and martin. Normal visualized pulmonary arteries. There is atherosclerotic tortuosity of the aortic arch and descending thoracic aorta. Normal visualized thoracic spine. Normal visualized ribs, clavicles, and shoulders. There is no demonstrated abnormality of the visualized soft tissue structures of the upper abdomen. RAD/Chest PA and Lateral IMPRESSION: Mild residual increased markings at the lung bases suggestive of atelectasis/scarring. Overall, there has been improved aeration of both lungs. Electronically Signed: Ankur Johnson, at 14:00 EDT , Service support ,
--- NOTE | 2019-06-02 13:06 | PN_ITS ---
<Chelsi Sanchez - Last Filed: 06/02/19 13:22> Patient Problems: Active and Suspected Problems (This Medical Record has been edited. Action required.) Acute respiratory failure with hypoxia (Acute) Aspiration pneumonitis (Acute) Overdose (Acute) Hyperglycemia (Acute) Subjective: Patient seen and examined. Complains of bilateral ear pressure. Reports intermittent productive cough. Denies fever, chills. Denies shortness of breath. - Physical Exam General: Alert, Oriented x3, Cooperative HEENT: Atraumatic, PERRLA, EOMI, Normocephalic Oral: Dry Mucosa Neck: Supple, No JVD, Negative Carotid Bruits Lungs: Diminished, Rhonchi Cardiovascular: Regular rate, Regular Rhythm, Normal S1, Normal S2, No murmurs Abdomen: Bowel Sounds Present, Soft, Non Tender, Non-Distended Extremities: No clubbing, No cyanosis, No edema, Capillary Refill Less than 3 Seconds Skin: No rashes, No breakdown Musculoskeletal: No Tenderness to Palpation of Joints or Extremities Neurological: Cranial nerves II-XII grossly intact, Neuro grossly intact Psych/Mental Status: Flat Affect Vital Signs Temp Pulse Resp BP Pulse Ox 97.8 F 89 18 131/73 H 96 06/02/19 09:47 06/02/19 11:07 06/02/19 11:07 06/02/19 09:47 06/02/19 09:47 Oxygen Flow Rate (L/min) 2 Oxygen Delivery Method Room Air Weight: 181 lb 10.574 oz Body Mass Index (BMI) 24.6 Intake and Output for Last 24 Hours 05/31/19 06/01/19 06/02/19 23:59 23:59 23:59 Intake Total 2906.25 / 2906.25 307.75 / 307.75 Output Total 900 / 900 Balance / 307.75 / 307.75 Laboratory Tests Past 24 Hrs 06/01/19 06/02/19 06/02/19 05:52 05:40 05:40 WBC 12.5 H RBC 4.53 L Hgb 13.7 Hct 41.8 MCV 92.3 MCH 30.2 MCHC 32.8 RDW Std Deviation 43.8 RDW Coeff of Viviana 13.1 Plt Count 250 MPV 8.6 Immature Gran % (Auto) 0.600 Neut % (Auto) 78.9 H Lymph % (Auto) 12.1 L [place] % (Auto) 5.8 Eos % (Auto) 2.4 Baso % (Auto) 0.2 Absolute Neuts (auto) 9.9 H Absolute Lymphs (auto) 1.51 Nucleated RBC % 0 Sodium 140 Potassium 3.9 Chloride 107 Carbon Dioxide 27.0 Anion Gap 6 BUN 12 Creatinine 0.93 Estim Creat Clear Calc 99.67 Est GFR (MDRD) Af Amer 109 Est GFR (MDRD) Non-Af 90 BUN/Creatinine Ratio 13.0 Glucose 148 H Calcium 8.2 L Total Bilirubin 0.70 AST 120 H ALT 310 H Alkaline Phosphatase 72 Total Protein 6.0 L Albumin 2.8 L Globulin 3.2 Albumin/Globulin Ratio 0.9 Hepatitis A IgM Ab Negative Hepatitis A Ab Total Negative Hep Bs Antigen Negative Hep B Core Total Ab Negative Hep B Core IgM Ab Negative Hepatitis C Ab Confirm >11.0 H Medical Necessity - Tobacco Use Smoking Status: Current every day smoker Tobacco Use: Cigarettes Assessment/Plan All Active Problems (This Medical Record has been edited. Action required.) Acute respiratory failure with hypoxia (Acute) Aspiration pneumonitis (Acute) Overdose (Acute) Hyperglycemia (Acute) Septic thrombophlebitis of upper extremities (Acute) MRSA bacteremia (Acute) Bacteremia (Acute) Sepsis (Acute) Fasciitis (Ruled-out) Right arm cellulitis (Acute) 1. Acute hypoxic respiratory failure secondary to acute heroin overdose with suspected aspiration-patient initially found unresponsive, status post 6 mg of Narcan. Urine tox positive for THC, amphetamines, cocaine. Continue IV meropenem. WBC improving. Oxygen now stable on room air. Chest x-ray admission with airspace disease in the right lung possibly due to aspiration. Repeat chest x-ray pending. Anticipate discharge home tomorrow if continued improvement. 2. Polysubstance abuse with history of hepatitis C-tox screen as noted above. 3. Alcohol abuse-ethyl alcohol less than 3 on admission. No evidence of withdrawal symptoms. 4. Tobacco dependence-encouraged smoking cessation. 5. GERD-continue omeprazole regimen. 6. Elevated glucose on admission, stress response related to #1. Hemoglobin A1c 5.6% DVT prophylaxis-SCDs, Lovenox This patient was seen by ISA Garcia under the supervision of Dr. Corrigan. <Julio Corrigan - Last Filed: 06/02/19 14:17> - Physical Exam Vital Signs Temp Pulse Resp BP Pulse Ox 97.8 F 89 18 131/73 H 96 06/02/19 09:47 06/02/19 11:07 06/02/19 11:07 06/02/19 09:47 06/02/19 09:47 Oxygen Flow Rate (L/min) 2 Oxygen Delivery Method Room Air Weight: 82.4 kg Body Mass Index (BMI) 24.6 Intake and Output for Last 24 Hours 05/31/19 06/01/19 06/02/19 23:59 23:59 23:59 Intake Total 2906.25 / 2906.25 307.75 / 307.75 Output Total 900 / 900 Balance / 307.75 / 307.75 Laboratory Tests Past 24 Hrs 06/01/19 06/02/19 06/02/19 05:52 05:40 05:40 WBC 12.5 H RBC 4.53 L Hgb 13.7 Hct 41.8 MCV 92.3 MCH 30.2 MCHC 32.8 RDW Std Deviation 43.8 RDW Coeff of Viviana 13.1 Plt Count 250 MPV 8.6 Immature Gran % (Auto) 0.600 Neut % (Auto) 78.9 H Lymph % (Auto) 12.1 L [place] % (Auto) 5.8 Eos % (Auto) 2.4 Baso % (Auto) 0.2 Absolute Neuts (auto) 9.9 H Absolute Lymphs (auto) 1.51 Nucleated RBC % 0 Sodium 140 Potassium 3.9 Chloride 107 Carbon Dioxide 27.0 Anion Gap 6 BUN 12 Creatinine 0.93 Estim Creat Clear Calc 99.67 Est GFR (MDRD) Af Amer 109 Est GFR (MDRD) Non-Af 90 BUN/Creatinine Ratio 13.0 Glucose 148 H Calcium 8.2 L Total Bilirubin 0.70 AST 120 H ALT 310 H Alkaline Phosphatase 72 Total Protein 6.0 L Albumin 2.8 L Globulin 3.2 Albumin/Globulin Ratio 0.9 Hepatitis A IgM Ab Negative Hepatitis A Ab Total Negative Hep Bs Antigen Negative Hep B Core Total Ab Negative Hep B Core IgM Ab Negative Hepatitis C Ab Confirm >11.0 H Assessment/Plan This patient was seen in conjunction with ISA Garcia . I have independently interviewed and examined the patient and reviewed pertinent historical, laboratory, and other data. Please refer to ISA Garcia note for details of this patient's presentation, findings, and recommendations. I have reviewed ISA Garcia note and concur with documented findings. In brief, patient is a 84-year-old gentleman with history of polysubstance abuse admitted following heroin overdose and suspected aspiration Physical Examination: GENERAL: cooperative HEENT: Atraumatic; EYES; Anicteric, NECK; supple, normal thyroid, RESPIRATORY: Diminished to auscultation CARDIOVASCULAR: Regular S1 S2, GI: soft, non-tender, : No Renal angle tenderness; EXTREMITIES: No edema, no clubbing, MUSCULOSKELETAL: No Joint Tenderness; SKIN: No Rash PSYCH; flat affect Assessment: 1. Aspiration pneumonia 2. Unintentional drug overdose with heroin 3. Polysubstance abuse 4. Tobacco dependence 5. Chronic alcohol abuse 6. Chronic hep C 7. GERD Recommendations: 1. I have discussed the results of my overview and impressions with the patient 2. Options for management were reviewed Code Visit Inpatient E&M: 62723 Subs Hosp L2
[2019-06-02] MEDS: 0.9% NaCl Peripheral Flush Adult/Peds IV (21:09)
[2019-06-03 03:04] VITALS: BP 132/81; PULSE 88; RESP 18; TEMP 36.8; O2SAT 94
[2019-06-03 06:12] LABS: Hematocrit 41.9 % (40-54); Hemoglobin 13.9 g/dL (13.0-16.5); Mean Corp Hgb Conc 33.2 g/dL (32-36); Mean Corpuscular Hgb 30.2 pg (27.0-32.0); Mean Corpuscular Volume 91.1 fL (80-94); Mean Platelet Vol. 8.8 fl (6.2-12.0); Platelet Count 288 K/mm3 (150-450); RBC Distribution Width CV 12.9 % (11.6-14.6); RBC Distribution Width SD 42.2 fl (35.1-43.9)
[2019-06-03 06:46] LABS: ALB/GLOB Ratio 0.8 RATIO (0.9-2.4); AST(SGOT) 75 U/L (15-37); Alanine Aminotransfer ALT/SGPT 264 U/L (16-61); Albumin, Serum 2.8 g/dL (3.2-5.0); Alkaline Phosphatase 78 U/L (45-117); Anion Gap 7 (5-15); BUN 12 mg/dL (7-18); Calcium,Total 8.3 mg/dL (8.5-10.1); Chloride 109 mmol/L (98-107); Creatinine, Serum 0.71 mg/dL (0.70-1.30); EST Glomerular Filtration Rate 123 mL/min (>60); Est Glom Filt Rate - Afr Amer 149 mL/min (>60); Estimated Creatinine Clearance 130.55 ml/min; Globulin 3.5 g/dL (2.2-4.2); Glucose 128 mg/dL (74-106); Protein, Total 6.3 g/dL (6.4-8.2); Sodium Level 142 mmol/L (136-145)
[2019-06-03 07:10] VITALS: O2SAT 94
--- NOTE | 2019-06-03 08:38 | DCINST_ITS ---
- Discharge Diagnoses Current Active Problems: Current Active and Chronic Problems (This Medical Record has been edited. Action required.) Acute respiratory failure with hypoxia (Acute) Aspiration pneumonitis (Acute) Overdose (Acute) Tobacco use (Chronic) Hepatitis C (Chronic) Hyperglycemia (Acute) You will use the following diet at home:: No restrictions Discharge Activity: Return to Normal Activity Call your doctor if you observe: Shortness of breath, Dizziness, Fainting spells, Chest pain Allergies/Adverse Reactions: Allergies Penicillins Allergy (Verified 05/29/19 15:14) Rash Medications to take at Discharge Acetaminophen [Tylenol Tablet] 500 mg PO Q4H PRN tablet 12/26/18 Ibuprofen 3 - 4 tab PO TID PRN #1 tablet 12/26/18 Omeprazole 20 mg PO DAILY #1 tab. 12/26/18 Levofloxacin [Levaquin] 750 mg PO DAILY #5 tab 06/03/19 Metronidazole [Flagyl] 500 mg PO Q8H #15 tab 06/03/19 The following prescriptions were given: Metronidazole [Flagyl] 500 mg PO Q8H #15 tab Transmission Status: Pending to [facility] Levofloxacin [Levaquin] 750 mg PO DAILY #5 tab Transmission Status: Pending to [facility] Primary Care Physician: Bruce Le DO [Primary Care Provider] - Please follow up with your Primary Care Physician in: 1 Week Test Results: Test results from this visit will be discussed in further detail at your follow- up appointment, if applicable. Proposed Discharge Date: 06/03/19
[2019-06-03 08:58] VITALS: BP 136/87; PULSE 76; RESP 18; TEMP 36.7; O2SAT 96
--- NOTE | 2019-06-03 09:12 | PCM.DC.SUM ---
<Chelsi Sanchez - Last Filed: 06/03/19 09:19> Discharge Date and Diagnosis Date of Admission: 06/01/19 Date of Discharge: 06/03/19 - Primary Discharge Diagnosis 1. Acute hypoxic respiratory failure secondary to acute heroin overdose with aspiration pneumonia 2. Polysubstance abuse with history of hepatitis C 3. Alcohol abuse 4. Tobacco dependence 5. GERD 6. Elevated glucose on admission, stress response related to #1. - Secondary Discharge Diagnosis Chronic Problems (This Medical Record has been edited. Action required.) Tobacco use (Chronic) Hepatitis C (Chronic) Polysubstance (including opioids) dependence with physiol dependence (Chronic) Hospital Course and Treatment Imaging Results: Diagnostic Data Chest X-Ray 06/02/19 13:00 IMPRESSION: Mild residual increased markings at the lung bases suggestive of atelectasis/scarring. Overall, there has been improved aeration of both lungs. Electronically Signed: Ankur Janiceferniejerry, at 14:00 EDT , Service support , Operations: herniorrhaphy Procedures: None Summary of Care Provided: The patient is a 54 year old M admitted 06/01/2018 due to found responsive secondary to unintentional drug overdose. Family initiated CPR he was noted to have vomited. EMS administered 6 mg Narcan. 1. Acute hypoxic respiratory failure secondary to acute heroin overdose with aspiration pneumonia-Urine tox positive for THC, amphetamines, cocaine. Treated with IV meropenem during admission. Leukocytosis resolved. Oxygen now stable on room air. Chest x-ray admission with airspace disease in the right lung possibly due to aspiration. Repeat chest x-ray showed improved aeration of both lungs. Discharge on oral Levaquin and oral Flagyl to complete course of antibiotics. Follow-up with primary care physician in 1 week. 2. Polysubstance abuse with history of hepatitis C-tox screen as noted above. 3. Alcohol abuse-ethyl alcohol less than 3 on admission. No evidence of withdrawal symptoms. 4. Tobacco dependence-encouraged smoking cessation. 5. GERD-continue omeprazole regimen. 6. Elevated glucose on admission, stress response related to #1. Hemoglobin A1c 5.6% General: Alert, Oriented x3, Cooperative HEENT: Atraumatic, PERRLA, EOMI, Normocephalic Oral: Dry Mucosa Neck: Supple, No JVD, Negative Carotid Bruits Lungs: Diminished, Rhonchi Cardiovascular: Regular rate, Regular Rhythm, Normal S1, Normal S2, No murmurs Abdomen: Bowel Sounds Present, Soft, Non Tender, Non-Distended Extremities: No clubbing, No cyanosis, No edema, Capillary Refill Less than 3 Seconds Skin: No rashes, No breakdown Musculoskeletal: No Tenderness to Palpation of Joints or Extremities Neurological: Cranial nerves II-XII grossly intact, Neuro grossly intact Psych/Mental Status: Flat Affect Patient seen and examined prior to discharge. Physical assessment as noted above. Patient is stable for discharge with follow up recommendations as noted above. This patient was seen by ISA Garcia under the supervision of Dr. Corrigan. - Physical Exam Vital Signs Temp Pulse Resp BP Pulse Ox 98.0 F 76 18 136/87 H 96 06/03/19 08:58 06/03/19 08:58 06/03/19 08:58 06/03/19 08:58 06/03/19 08:58 Oxygen Flow Rate (L/min) 2 Oxygen Delivery Method Room Air Weight: 181 lb 10.574 oz Body Mass Index (BMI) 24.6 Intake and Output for Last 24 Hours 06/01/19 06/02/19 06/03/19 23:59 23:59 23:59 Intake Total 2906.25 / 2906.25 941.25 / 941.25 593.95 / 593.95 Output Total 900 / 900 Balance / 941.25 / 941.25 593.95 / 593.95 Laboratory Tests Past 24 Hrs 06/01/19 06/03/19 06/03/19 05:52 05:33 05:33 WBC 11.0 RBC 4.60 Hgb 13.9 Hct 41.9 MCV 91.1 MCH 30.2 MCHC 33.2 RDW Std Deviation 42.2 RDW Coeff of Viviana 12.9 Plt Count 288 MPV 8.8 Sodium 142 Potassium 4.0 Chloride 109 H Carbon Dioxide 26.0 Anion Gap 7 BUN 12 Creatinine 0.71 Estim Creat Clear Calc 130.55 Est GFR (MDRD) Af Amer 149 Est GFR (MDRD) Non-Af 123 BUN/Creatinine Ratio 17.0 Glucose 128 H Calcium 8.3 L Total Bilirubin 0.40 AST 75 H ALT 264 H Alkaline Phosphatase 78 Total Protein 6.3 L Albumin 2.8 L Globulin 3.5 Albumin/Globulin Ratio 0.8 L Hepatitis A IgM Ab Negative Hepatitis A Ab Total Negative Hep Bs Antigen Negative Hep B Core Total Ab Negative Hep B Core IgM Ab Negative Hepatitis C Ab Confirm >11.0 H Discharge Diet: No Restrictions Discharge Activity: Return to Normal Activity Call your doctor if you observe: Shortness of breath, Dizziness, Fainting spells, Chest pain Home Medications: Medications to take at Discharge Acetaminophen [Tylenol Tablet] 500 mg PO Q4H PRN tablet 12/26/18 Ibuprofen 3 - 4 tab PO TID PRN #1 tablet 12/26/18 Omeprazole 20 mg PO DAILY #1 tab. 12/26/18 Levofloxacin [Levaquin] 750 mg PO DAILY #5 tab 06/03/19 Metronidazole [Flagyl] 500 mg PO Q8H #15 tab 06/03/19 Following Prescrptions Were Given to Patient: Metronidazole [Flagyl] 500 mg PO Q8H #15 tab Transmission Status: Received by [facility] Levofloxacin [Levaquin] 750 mg PO DAILY #5 tab Transmission Status: Received by [facility] Primary Care Physician: Bruce Le DO [Primary Care Provider] - Please follow up with your Primary Care Physician in: 1 Week Disposition: Home Minutes spent on discharge:: 35 Patient Condition:: Stable Medical Necessity - Tobacco Use Smoking Status: Current every day smoker Tobacco Use: Cigarettes Meaningful Use Info Meaningful Use Diagnoses (Choose all that apply): None applicable <Julio Corrigan - Last Filed: 06/03/19 09:43> Discharge Date and Diagnosis - Secondary Discharge Diagnosis Chronic Problems (This Medical Record has been edited. Action required.) Tobacco use (Chronic) Hepatitis C (Chronic) Polysubstance (including opioids) dependence with physiol dependence (Chronic) Hospital Course and Treatment Summary of Care Provided: This patient was seen in conjunction with ISA Garcia . I have independently interviewed and examined the patient and reviewed pertinent historical, laboratory, and other data. Please refer to ISA Garcia note for details of this patient's presentation, findings, and recommendations. I have reviewed ISA Garcia note and concur with documented findings. In brief, patient is a 84-year-old gentleman with history of polysubstance abuse admitted following heroin overdose and suspected aspiration Assessment: 1. Aspiration pneumonia 2. Unintentional drug overdose with heroin 3. Polysubstance abuse 4. Tobacco dependence 5. Chronic alcohol abuse 6. Chronic hep C 7. GERD Hospital course: As documented above by Chelsi Sanchez NP?C. - Physical Exam Vital Signs Temp Pulse Resp BP Pulse Ox 98.0 F 76 18 136/87 H 96 06/03/19 08:58 06/03/19 08:58 06/03/19 08:58 06/03/19 08:58 06/03/19 08:58 Oxygen Flow Rate (L/min) 2 Oxygen Delivery Method Room Air Weight: 82.4 kg Body Mass Index (BMI) 24.6 Intake and Output for Last 24 Hours 06/01/19 06/02/19 06/03/19 23:59 23:59 23:59 Intake Total 2906.25 / 2906.25 941.25 / 941.25 593.95 / 593.95 Output Total 900 / 900 Balance 941.25 / 941.25 593.95 / 593.95 Laboratory Tests Past 24 Hrs 06/01/19 06/03/19 06/03/19 05:52 05:33 05:33 WBC 11.0 RBC 4.60 Hgb 13.9 Hct 41.9 MCV 91.1 MCH 30.2 MCHC 33.2 RDW Std Deviation 42.2 RDW Coeff of Viviana 12.9 Plt Count 288 MPV 8.8 Sodium 142 Potassium 4.0 Chloride 109 H Carbon Dioxide 26.0 Anion Gap 7 BUN 12 Creatinine 0.71 Estim Creat Clear Calc 130.55 Est GFR (MDRD) Af Amer 149 Est GFR (MDRD) Non-Af 123 BUN/Creatinine Ratio 17.0 Glucose 128 H Calcium 8.3 L Total Bilirubin 0.40 AST 75 H ALT 264 H Alkaline Phosphatase 78 Total Protein 6.3 L Albumin 2.8 L Globulin 3.5 Albumin/Globulin Ratio 0.8 L Hepatitis A IgM Ab Negative Hepatitis A Ab Total Negative Hep Bs Antigen Negative Hep B Core Total Ab Negative Hep B Core IgM Ab Negative Hepatitis C Ab Confirm >11.0 H Code Visit Inpatient E&M: [id number] Disch Hosp
== END 2019-06-03 08:57 | disposition home or self-care (01) | DRG 917 ==
LOC: ED 04:47 → PCU 05:11
PROVIDERS: Internal Medicine; Nurse Practitioner Family; Admitting Provider Family Medicine; Emergency Provider Emergency Medicine; Family Provider Preventive Medicine Occupational Medicine; PCP Preventive Medicine Occupational Medicine; Referring Provider Family Medicine; Visit Provider Internal Medicine
DX: T40.5X1A Poisoning by cocaine, accidental (unintentional), initial encounter (principal); J96.01 Acute respiratory failure with hypoxia; J69.0 Pneumonitis due to inhalation of food and vomit; T40.7X1A Poisoning by cannabis (derivatives), accidental (unintentional), initial encounter; T43.621A Poisoning by amphetamines, accidental (unintentional), initial encounter; F17.210 Nicotine dependence, cigarettes, uncomplicated; F10.10 Alcohol abuse, uncomplicated; K21.9 Gastro-esophageal reflux disease without esophagitis; F19.10 Other psychoactive substance abuse, uncomplicated; B19.20 Unspecified viral hepatitis C without hepatic coma; R73.9 Hyperglycemia, unspecified
CPT/HCPCS: 36415; 71045; 71046; 80048; 80053; 80307; 80320; 82962; 83036; 83735; 84100; 84484; 85025; 85027; 86703; 86704; 86705; 86706; 86708; 86709; 86803; 87340; 93005; 94640; 94667; 99285; 99406; J2185; J7030; J7040; A4216; G0480; J2405

== ENCOUNTER 2019-10-11 20:27 | Emergency (ER) | payer SELFPAY ==
[2019-06-01 05:41] VITALS: BMI 24.6
[2019-10-11 20:28] VITALS: BP 146/103; PULSE 79; RESP 17; TEMP 36; O2SAT 98; BMI 25.1
--- NOTE | 2019-10-11 21:07 | US_ITS ---
STUDY: ABDOMINAL ULTRASOUND - RIGHT UPPER QUADRANT REASON FOR VISIT: Male, 54 years old RUQ PAIN - jaundice TECHNIQUE: Ultrasound evaluation of the right upper quadrant was performed with real-time and static lawrence-scale imaging. TECHNICAL QUALITY: Adequate. COMPARISON: None. FINDINGS: Liver: The liver measures 19.5 cm. There is a heterogeneous echogenicity of the liver. The bile ducts are within normal limits. There is hepatic color flow. The direction of portal flow is hepatopetal. There is no demonstrated mass lesion. Gallbladder: There is a markedly distended gallbladder. The gallbladder wall measures 4 mm. There is a negative sonographic Burton''s sign. There is no pericholecystic fluid. There are no gallstones. There is mild layering sludge in the gallbladder. Common Bile Duct (C.B.D.): The common bile duct measures 7 mm. Pancreas: Normal size of the head, body and tail of the pancreas. There is normal echogenicity of the pancreas. There is no demonstrated pancreatic mass or cyst. Right Kidney: Normal size of the right kidney. The right kidney measures 13.2 cm. Normal renal cortex. The right cortex measures 2.3 cm. There is no demonstrated renal mass or cyst. There is no right hydronephrosis. OTHER: There is moderate ascites in the abdomen. US/Abdomen Limited IMPRESSION: Hepatomegaly. Gallbladder is distended with mild prominence of the common duct. No stones are seen. Mild sludge in the gallbladder. Ascites. Electronically Signed: Collins Garza MD at 22:46 EST , Service support ,
--- NOTE | 2019-10-11 21:08 | ED.DCSUM_ITS ---
History of Present Illness Chief Complaint: Abd Pain Informant: Patient Onset: Days Context: Gradual Onset Narrative: She presents with mild right upper quadrant pain for the past week or so. He states of the last 4 days has had vomiting once a day. He started noticing yellow color to his eyes and skin over the past 2 to 3 days. Patient does have a history of hepatitis C but states he received treatment for this. He does have a history of drug abuse. - Past Medical History (1) Hepatitis C Status: Chronic (2) Polysubstance (including opioids) dependence with physiol dependence Status: Chronic (3) Tobacco use Status: Chronic Past Medical History - Allergies and Home Meds Allergies/Adverse Reactions: Allergies Penicillins Allergy (Verified 10/11/19 20:27) Rash Primary Care Physician: Bruce Le DO [Primary Care Provider] - Prior records reviewed: Yes Surgical History: tonsillectomy Smoking Status: Current every day smoker Alcohol: Occasional Drugs: Cocaine, Heroin - Family History Maternal Family History: Reports: Hypertension Paternal Family History: Reports: Diabetes, Heart Disease, Hypertension Review of Systems General: Denies: Chills, Fever Eyes: Denies: Visual changes - bilaterally ENT: Denies: Bilateral ear pain Cardiovascular: Denies: Chest pain Respiratory: Denies: Dyspnea, Cough Gastrointestinal: Reports: Abdominal pain, Nausea, Vomiting Genitourinary: Denies: Dysuria Musculoskeletal: Denies: Extremity Pain Skin: Denies: Rash Neurological: Denies: Headache Allergy: Denies: Uticaria Physical Exam Vital Signs/Narrative: Vital Signs Temp Pulse Resp BP Pulse Ox 10/11/19 20:28 96.8 F L 79 17 146/103 H 98 Inital Vital Signs reviewed: Yes General: Well nourished, Well developed Head: Normocephalic Eyes: Scleral icterus ENT: Moist mucous membranes Neck: Supple Cardiovascular: Regular rate, Regular rhythm Respiratory: No distress, CTA bilaterally Abdomen: Soft, Tender - Mild tenderness in the right upper quadrant., Hypoactive bowel sounds Skin: Jaundice Neurological: Alert, Oriented x3 Psychological: Normal affect Diagnostic/Tx/Re-eval Impressions Abdomen Ultrasound 10/11/19 21:07 IMPRESSION: Hepatomegaly. Gallbladder is distended with mild prominence of the common duct. No stones are seen. Mild sludge in the gallbladder. Ascites. Electronically Signed: Collins Garza MD at 22:46 EST , Service support , 10/11/19 21:07 US Abd [Abdomen Limited] [US] Stat Laboratory Results 10/11/19 10/11/19 21:21 21:21 WBC 7.8 RBC 4.88 Hgb 14.7 Hct 42.7 MCV 87.5 MCH 30.1 MCHC 34.4 RDW Std Deviation 56.5 H RDW Coeff of Vivinaa 18.1 H Plt Count 178 MPV 11.1 Immature Gran % (Auto) 0.600 Neut % (Auto) 66.2 Lymph % (Auto) 20.7 Lawrence % (Auto) 10.2 H Eos % (Auto) 1.9 Baso % (Auto) 0.4 Absolute Neuts (auto) 5.2 Absolute Lymphs (auto) 1.62 Nucleated RBC % 0 Sodium 131 L Potassium 4.3 Chloride 102 Carbon Dioxide 24.0 Anion Gap 5 BUN 12 Creatinine 0.75 Estim Creat Clear Calc 123.59 Est GFR (MDRD) Af Amer 139 Est GFR (MDRD) Non-Af 115 BUN/Creatinine Ratio 16.0 Glucose 119 H Calcium 7.3 L Total Bilirubin 15.20 H* Direct Bilirubin 11.51 H AST 2721 H ALT 2588 H Alkaline Phosphatase 182 H Total Protein 6.4 Albumin 1.6 L Globulin 4.8 H Lipase 117 - Medical Decision Making Patient is given IV fluids here. Test results are discussed with him. Patient does continue to use IV drugs. Hepatitis panel is sent. Ultrasound does not reveal an acute cause of his current symptoms. I spoke with hospitalist here. Due to concern for significantly elevated LFTs and not having GI coverage here she recommended transfer to facility with GI coverage. This was discussed with the patient. Will be transferred. ED Disposition - Plan for ED Patient: Disposition: [facility] Diagnosis: Liver failure Referrals: Bruce Le DO [Primary Care Provider] -
[2019-10-11] MEDS: 0.9% Normal Saline 1,000 ML 150 ML IV (21:19)
[2019-10-11 21:27] LABS: Absolute Lymphocyte Count 1.62 X10^3/uL (0.83-4.51); Absolute Neutrophil Count 5.2 X10^3/uL (2.0-7.7); Basophil# 0.03 X10^3/uL; Basophil% 0.4 % (0-1); Eosinophil# 0.15 X10^3/uL; Eosinophils% 1.9 % (0-5); Hematocrit 42.7 % (40-54); Hemoglobin 14.7 g/dL (13.0-16.5); Lymphocyte # 1.62 X10^3/ul (4.0); Lymphocyte % 20.7 % (19-41); Mean Corp Hgb Conc 34.4 g/dL (32-36); Mean Corpuscular Hgb 30.1 pg (27.0-32.0); Mean Corpuscular Volume 87.5 fL (80-94); Mean Platelet Vol. 11.1 fl (6.2-12.0); Monocyte% 10.2 % (0-10); NRBC Flagged by Analyzer 0 % (0-5); Neutrophil # 5.19 X10^3/uL (2.7-7.7); Neutrophil % 66.2 % (47-70); Platelet Count 178 K/mm3 (150-450); RBC Distribution Width CV 18.1 % (11.6-14.6); RBC Distribution Width SD 56.5 fl (35.1-43.9); Red Blood Count 4.88 M/mm3 (4.6-6.2); White Blood Count 7.8 K/mm3 (4.4-11.0)
[2019-10-11 22:01] LABS: AST(SGOT) 2721 U/L (15-37); Alanine Aminotransfer ALT/SGPT 2588 U/L (16-61); Albumin, Serum 1.6 g/dL (3.2-5.0); Alkaline Phosphatase 182 U/L (45-117); Anion Gap 5 (5-15); BUN 12 mg/dL (7-18); Bilirubin, Direct 11.51 mg/dL (0.00-0.30); Calcium,Total 7.3 mg/dL (8.5-10.1); Chloride 102 mmol/L (98-107); Creatinine, Serum 0.75 mg/dL (0.70-1.30); EST Glomerular Filtration Rate 115 mL/min (>60); Est Glom Filt Rate - Afr Amer 139 mL/min (>60); Estimated Creatinine Clearance 123.59 ml/min; Globulin 4.8 g/dL (2.2-4.2); Glucose 119 mg/dL (74-106); Lipase 117 U/L (73-393); Potassium 4.3 mmol/L (3.5-5.1); Protein, Total 6.4 g/dL (6.4-8.2); Sodium Level 131 mmol/L (136-145)
[2019-10-11 23:36] LABS: Bacteria 0 SEEN /hpf (None Seen); Mucous, Urine 0 SEEN /hpf (<or=2+)
[2019-10-11 23:42] LABS: Color, Urine Amber (Yellow); Glucose, Dipstick Normal (Normal); Ketone-Dipstick 5 mg/dl (Negative); Leukocyte Esterase-Dipstick 25 /ul (Negative); Nitrite-Dipstick Positive (Negative); Occult Blood-Urine 10 /ul (Negative); Protein-Dipstick 30 mg/dl (Negative); Urine Clarity Sl. Cloudy (Clear); Urine Urobilinogen 12 mg/dl (Normal)
[2019-10-11 23:47] LABS: Urine Bilirubin Dipstick 6 mg/dL (Negative)
[2019-10-11 23:55] LABS: Red Blood Cells-Urine 5-10 SEEN /hpf (0-5); Squamous Epithelial Cells - UA 0-5 SEEN /hpf (0-5); White Blood Cells 5-10 SEEN /hpf (0-5)
[2019-10-12 00:01] VITALS: BP 123/86; PULSE 67; RESP 16; O2SAT 96
[2019-10-12 01:22] VITALS: BP 123/86; PULSE 67; RESP 16; O2SAT 96
[2019-10-13 06:07] LABS: Hepatitis B Core AB IgM Positive (Negative)
[2019-10-15 15:18] LABS: HEPATITIS B SURFACE AG Positive (Negative); Hep C Antibodies >11.0 s/co ratio (0.0-0.9)
[2019-10-15 15:21] LABS: Hepatitis A IgM Antibody Positive (Negative)
== END 2019-10-12 01:56 | disposition short-term general hospital (02) ==
PROVIDERS: Emergency Provider Emergency Medicine; Family Provider Preventive Medicine Occupational Medicine; PCP Preventive Medicine Occupational Medicine
DX: K72.90 Hepatic failure, unspecified without coma (principal); F11.21 Opioid dependence, in remission; F17.200 Nicotine dependence, unspecified, uncomplicated; Z88.0 Allergy status to penicillin; Z86.19 Personal history of other infectious and parasitic diseases
CPT/HCPCS: 76705; 80048; 80074; 80076; 81001; 83690; 85025; 96360; 96361; 99284; J7030; A4216

== ENCOUNTER 2019-11-02 18:05 | Inpatient (IN) | payer SELFPAY ==
[2019-11-02 18:06] VITALS: BP 154/88; PULSE 84; RESP 24; TEMP 36.3; O2SAT 99; BMI 31.4
[2019-11-02 18:55] LABS: Absolute Lymphocyte Count 1.83 X10^3/uL (0.83-4.51); Absolute Neutrophil Count 4.1 X10^3/uL (2.0-7.7); Basophil# 0.07 X10^3/uL; Eosinophil# 0.28 X10^3/uL; Eosinophils% 3.8 % (0-5); Hematocrit 36.6 % (40-54); Hemoglobin 12.3 g/dL (13.0-16.5); Lymphocyte # 1.83 X10^3/ul (4.0); Mean Corp Hgb Conc 33.6 g/dL (32-36); Mean Corpuscular Hgb 31.8 pg (27.0-32.0); Mean Corpuscular Volume 94.6 fL (80-94); Mean Platelet Vol. 9.6 fl (6.2-12.0); Monocyte% 13.7 % (0-10); NRBC Flagged by Analyzer 0 % (0-5); Neutrophil # 4.09 X10^3/uL (2.7-7.7); Neutrophil % 55.8 % (47-70); POSITIVE MORPHOLOGY YES; Platelet Count 159 K/mm3 (150-450); RBC Distribution Width CV 22.4 % (11.6-14.6); RBC Distribution Width SD 77.1 fl (35.1-43.9); Red Blood Count 3.87 M/mm3 (4.6-6.2); White Blood Count 7.3 K/mm3 (4.4-11.0)
[2019-11-02 18:59] LABS: International Normalized Ratio 1.5; Partial Thromboplast Time 35.9 Seconds (24.1-36.2); Prothrombin Time (Protime)PT. 17.7 SECONDS (11.7-14.9)
[2019-11-02 19:09] LABS: ALB/GLOB Ratio 0.2 RATIO (0.9-2.4); AST(SGOT) 271 U/L (15-37); Alanine Aminotransfer ALT/SGPT 282 U/L (16-61); Albumin, Serum 1.4 g/dL (3.2-5.0); Alkaline Phosphatase 211 U/L (45-117); Anion Gap 2 (5-15); BUN 9 mg/dL (7-18); BUN/Creat Ratio 13.1 RATIO (10-20); Calcium,Total 7.7 mg/dL (8.5-10.1); Chloride 105 mmol/L (98-107); Creatinine, Serum 0.69 mg/dL (0.70-1.30); EST Glomerular Filtration Rate 128 mL/min (>60); Est Glom Filt Rate - Afr Amer 154 mL/min (>60); Estimated Creatinine Clearance 134.33 ml/min; Globulin 5.6 g/dL (2.2-4.2); Glucose 101 mg/dL (74-106); Potassium 4.1 mmol/L (3.5-5.1); Sodium Level 136 mmol/L (136-145)
[2019-11-02 19:22] LABS: Differential Indicated SCAN CRITERIA MET
[2019-11-02 19:29] LABS: Platelet Estimate ADEQUATE (ADEQ)
[2019-11-02 19:30] LABS: Anisocytosis RARE; Macrocytosis RARE
[2019-11-02 20:02] VITALS: BMI 31.4
--- NOTE | 2019-11-02 20:50 | ED.VISSUMM ---
- ER Visit Summary Date of Service: 11/02/19 Chief Complaint: [Shortness of breath and abdominal distention] History of Present Illness: The patient is a 54 M [presents the emergency department complaint of abdominal distention for several weeks. Patient states that he was diagnosed with liver failure several months ago was transferred to [facility]. Patient diagnosed with hepatitis A, B, and C. Patient does have history of illicit drug use and continues to use fentanyl but states that he is trying to wean himself off. Patient states that he is 40 pounds heavier than normal and he believes it is all related to fluid in his abdomen. While at [facility] he did have one paracentesis and he states they took a liter of fluid off his belly. Patient denies any fevers. He denies any significant abdominal pain other than just discomfort from the distention.] Physical Examination: [HEENT-PERRLA, EOMI. Cranial nerves II through XII grossly intact. TMs clear. Mucous membranes moist. No adenopathy. Patient does have scleral icterus and jaundice noted. Cardiovascular-regular rate and rhythm without murmur or ectopy Lungs-clear to auscultation, chest wall stable without crepitus or subcu emphysema Abdomen-normoactive bowel sounds, distended. Nontender. No rebound, rigidity, or peritoneal signs. Extremities-intact ?4, normal range of motion, normal pulses, atraumatic] Test Results: [CBC with differential obtained showed a white blood cell count 7.3, hemoglobin 12, hematocrit 36, platelets 159. Chemistries unremarkable. LFTs showed an ALT of 282, AST 271, alk phos 211, T bili 4.6. INR was 1.5 and PTT was 36.] Emergency Department Course and Treatment: [Patient case was discussed with general surgery who recommended that patient have interventional radiologist perform the paracentesis tomorrow. I discussed case with hospitalist who will evaluate patient.] Treatment Plan: [Admit] Disposition: [Admit Impression: [Dyspnea Ascites Liver failure/cirrhosis related to hepatitis] This note was generated with Pathableation software. It may contain incorrect words, spelling, and punctuation that were not noted in review of the chart prior to signing ED Disposition - Plan for ED Patient: Referrals: Bruce Le DO [Primary Care Provider] -
--- NOTE | 2019-11-02 21:05 | HP.PCM_ITS ---
Problem List (1) Anasarca Status: Acute (2) Ascites Status: Acute (3) Acute hepatic failure Status: Acute (4) Hepatitis B Status: Acute (5) Hepatitis A Status: Acute (6) Tobacco use Status: Chronic (7) Hepatitis C Status: Acute Qualifiers: (8) Polysubstance (including opioids) dependence with physiol dependence Status: Chronic History of Present Illness Date of Admission: 11/02/19 Chief Complaint: Shortness of breath and abdominal distention. The patient is a 54 year old M patient with past medical history as mentioned above presented to the emergency room with main complaint of shortness of breath and abdominal distention. Patient was diagnosed with acute hepatic failure secondary to hepatitis A, hepatitis B and hepatitis C on October 11, 2019 and he was transferred to [facility] for further treatment. Patient was admitted there for 6 days and he was discharged. He had paracentesis done and he mentioned that around 1.5 L taken out from his belly. His main complaint tonight is shortness of breath, started in the last 10 to 12 days, he gets short of breath with activity, slowly progressive, associated with increasing abdominal distention as well as leg edema and without significant aggravating or relieving factors. Also, he complains of scrotal swelling which has been also worsening during the same time causing discomfort upon walking. He denies urinary symptoms.. He denied fever or chills. He denied hematemesis, hematochezia or melena. He denied epistaxis or hematuria. In the emergency department, he was afebrile and his vital signs were stable. His routine blood work was remarkable for hemoglobin of 12.3, otherwise normal. LFT revealed bilirubin of 4.6, AST of 271, ALT of 282 and alkaline phosphatase of 211. Serum albumin was very low at 1.4. He is being admitted for ascites and anasarca as well as recent history of acute hepatic failure secondary to hepatitis A, B and C. Past Medical History Past Medical History (Chronic Problems): Chronic Problems (This Medical Record has been edited. Action required.) Tobacco use (Chronic) Polysubstance (including opioids) dependence with physiol dependence (Chronic) Medical History: Medical History (This Medical Record has been edited. Action required.) Polysubstance dependence F19.20 Allergies Penicillins Allergy (Verified 10/11/19 20:27) Rash Home Medications: Ambulatory Orders Medication Instructions Recorded NK 10/12/19 Surgical History: tonsillectomy Psychiatric History: No pertinent psych hx Smoking Status: Current every day smoker Tobacco Use: Cigarettes Alcohol: Sober - *Family History Maternal History Items: Hypertension Paternal History Items: Diabetes, Heart Disease, Hypertension Review of Systems Constitutional: Denies: Anorexia, Chills, Fever, Weakness Eyes: Denies: Blurred vision, Double vision, Drainage HEENT: Denies: Difficulty Hearing, Ear Pain, Eye Pain, Nasal Congestion, Sore Throat Cardiovascular: Reports: Edema. Denies: Chest Pain, Chest Pressure, Chest Tightness, Heaviness, Light Headedness, Palpitations, Syncope Respiratory: Reports: Shortness of Breath, Shortness of breath upon exertion. Denies: Cough, Pleuritic Pain, Sputum production, Wheezing Gastrointestinal: Denies: Abdominal Pain, Constipation, Diarrhea, Nausea, Vomiting Genitourinary: Denies: Dysuria, Frequency, Hematuria Musculoskeletal: Denies: Arm Pain, Back Pain, Foot Pain Skin: Denies: Dryness, Rash Neurological: Denies: Balance problems, Blurred vision, Double vision, Change in Speech, Slurred speech, Confusion, Headaches, Numbness, Tingling Psychiatric: Denies: Anxiety, Depression Endocrine: Denies: Change in Body Habitus, Polydipsia, Polyuria VTE Information - Inpt Only VTE Present on Admission: No VTE Mechan Device Prophylaxis: None VTE Pharm Prophylaxis ordered?: No Patient Problems: Active and Suspected Problems (This Medical Record has been edited. Action required.) Anasarca (Acute) Ascites (Acute) Acute hepatic failure (Acute) Hepatitis B (Acute) Hepatitis A (Acute) - Physical Exam Vitals/I&O's: Vital Signs Temp Pulse Resp BP Pulse Ox 97.4 F L 84 24 H 154/88 H 99 11/02/19 18:06 11/02/19 18:06 11/02/19 18:06 11/02/19 18:06 11/02/19 18:06 Weight: 231 lb 12.8 oz Body Mass Index (BMI) 31.4 General: Alert, Oriented x3, Cooperative, No apparent distress, - - Jaundice. Small right subconjunctival hemorrhage. HEENT: Atraumatic, PERRLA, EOMI, Normocephalic Oral: Moist Mucosa, No Gingival or Mucosal Lesions/ Ulcerations Neck: Supple, No JVD, Negative Carotid Bruits, Trachea Midline, Thyroid Normal Size and Texture Lungs: Clear to auscultation, Normal air movement, No rhonchi, No wheeze, No rales, Diminished Cardiovascular: Regular rate, Regular Rhythm, Normal S1, Normal S2, PMI Normal Abdomen: Bowel Sounds Present, Soft, Non Tender, No Hepato-splenomegaly, Distended, - - Ascites. Extremities: No clubbing, No cyanosis, Edema - ++ Edema. Skin: No rashes, No breakdown Lymphatic: No Cervical, Supraclavicular, or Inguinal Adenopathy Neurological: Cranial nerves II-XII grossly intact, Motor Exam 5/5 strength throughout Psych/Mental Status: Normal Affect, Appropriate, Alert and oriented to time, place, person, mood and affect Laboratory Results 11/02/19 18:20: WBC 7.3, RBC 3.87 L, Hgb 12.3 L, Hct 36.6 L, MCV 94.6 H, MCH 31.8, MCHC 33.6, RDW Std Deviation 77.1 H, RDW Coeff of Viviana 22.4 H, Plt Count 159, MPV 9.6, Immature Gran % (Auto) 0.700, Neut % (Auto) 55.8, Lymph % (Auto) 25.0, [place] % (Auto) 13.7 H, Eos % (Auto) 3.8, Baso % (Auto) 1.0, Absolute Neuts (auto) 4.1, Absolute Lymphs (auto) 1.83, Nucleated RBC % 0, Platelet Estimate ADEQUATE, Anisocytosis RARE, Macrocytosis RARE 11/02/19 18:20: PT 17.7 H, INR 1.5, APTT 35.9 11/02/19 18:20: Sodium 136, Potassium 4.1, Chloride 105, Carbon Dioxide 29.0, Anion Gap 2 L, BUN 9, Creatinine 0.69 L, Estim Creat Clear Calc 134.33, Est GFR (MDRD) Af Amer 154, Est GFR (MDRD) Non-Af 128, BUN/Creatinine Ratio 13.1, Glucose 101, Calcium 7.7 L, Total Bilirubin 4.60 H, AST 271 H, ALT 282 H, Alkaline Phosphatase 211 H, Total Protein 7.0, Albumin 1.4 L, Globulin 5.6 H, Albumin/Globulin Ratio 0.2 L Assessment/Plan All Active Problems (This Medical Record has been edited. Action required.) Anasarca (Acute) Ascites (Acute) Acute hepatic failure (Acute) Hepatitis B (Acute) Hepatitis A (Acute) Hepatitis C (Acute) This is a 54 years old male patient presented to the emergency room because of slowly progressive shortness of breath and abdominal distention as well as bilateral leg edema in the setting of recent diagnosis of acute hepatic failure secondary to hepatitis A, hepatitis B and hepatitis C and he was found to have anasarca with ascites and he is requiring paracentesis. #1 ascites/anasarca: Secondary to acute hepatic failure. Paracentesis done at [facility] around 3 weeks ago. At this time, does have significant ascites. Plan[facility], start IV Lasix, Aldactone, diagnostic and therapeutic paracentesis tomorrow morning, ascitic fluid analysis with cell count with differential, glucose, protein, LDH, culture and cytology, IV albumin after paracentesis, repeat CBC, CMP, PT and INR tomorrow morning. #2 recent acute hepatic failure: Secondary to infectious hepatitis as below. LFT is trending down. Total bilirubin was 15.2 on October 11, 2019, it is 4.6 today. Liver transaminases and alkaline phosphatase are also trending down. Patient does have significant hypoalbuminemia and his INR is 1.5. Plan: Vitamin K IV 10 mg x 1, IV albumin x1, CMP and INR tomorrow morning. #3 recent diagnosis of hepatitis A/B/C: Secondary to IV drug use. He never been treated for it. Patient will need follow-up with infectious disease as outpatient for treatment after full recovery from the acute hepatic failure. #4 polysubstance abuse: IV drug use, has been using IV heroin and cocaine. He denied current use. Will check urine drug screen. #5 alcohol abuse: Patient reports that he is sober at this time. Will check his blood alcohol level. #6 tobacco abuse: NicoDerm patch if required. #7 DVT prophylaxis: No prophylaxis indicated, INR is 1.5. This note was generated with RACTIVation software. It may contain incorrect words, spelling, and punctuation that were not noted in checking the note before signing. Code Visit Inpatient E&M: 72124 Init Hosp L3
[2019-11-02 21:26] VITALS: BMI 30.7
[2019-11-02 21:48] VITALS: BP 143/94; PULSE 84; RESP 20; TEMP 37.1; O2SAT 96
[2019-11-02 22:00] VITALS: PULSE 90
[2019-11-02] MEDS: 0.9% Saline Lock 10 ML Syringe IV (22:26)
[2019-11-02 23:25] LABS: Alcohol, Blood (Medical)-Serum < 3.0 mg/dL
[2019-11-02 23:29] LABS: Ammonia < 10.0 umol/L (11-32)
[2019-11-02 23:34] VITALS: O2SAT 96
[2019-11-02 23:41] VITALS: RESP 16; O2SAT 98
[2019-11-03] VITALS (14 sets, daily range): BP systolic 114–151; BP diastolic 77–96; PULSE 77–118; RESP 18–22; TEMP 36.7–37.7; O2SAT 93–98
[2019-11-03] MEDS: 0.9% Saline Lock 10 ML Syringe IV ×3 (00:05→17:35)
[2019-11-03 01:23] LABS: Amphetamine Urine VISTA NEGATIVE (<1000 ng/mL); Barbiturate Urine VISTA NEGATIVE (< 200 ng/mL); Benzodiazepine Urine VISTA NEGATIVE (< 200 ng/mL); Cocaine Urine VISTA NEGATIVE (< 300 ng/mL); Ecstacy Urine VISTA NEGATIVE (< 500 ng/mL); Methadone Urine VISTA NEGATIVE (< 300 ng/mL); PCP Urine VISTA NEGATIVE (< 25 ng/mL); THC Urine VISTA POSITIVE (< 50 ng/mL); Vista UDS pH Range 5
--- NOTE | 2019-11-03 07:00 | US_ITS ---
PROCEDURE: Ultrasound guided paracentesis. DATE OF EXAMINATION: November 03, 2019. INDICATION: Male, 54 years old. Ascites. PHYSICIAN: Ankur Johnson M.D. TECHNIQUE: The risks, benefits, and alternatives to the procedure were explained to the patient. The specific risks of bleeding, infection, and damage to bowel were detailed and accepted. Witnessed informed consent was obtained. The abdomen was ultrasonographically surveyed. An appropriate pocket of fluid was identified at the left lower quadrant. The skin were cleaned and prepped in the usual sterile fashion. Using ultrasound guidance, the peritoneal cavity was accessed with a 5-Turkish paracentesis needle/catheter system. The trocar was removed. A total of 5550 ml of ricardo-colored fluid were removed from the peritoneal cavity. A 120 mL sample was sent to the laboratory for analysis. The catheter was removed and a sterile dressing was applied. The procedure was well tolerated. US/Paracentesis with US IMPRESSION: Ultrasound guided paracentesis. Electronically Signed: Ankur Johnson, at 14:39 EST , Service support ,
[2019-11-03 07:12] LABS: Absolute Lymphocyte Count 1.99 X10^3/uL (0.83-4.51); Absolute Neutrophil Count 3.5 X10^3/uL (2.0-7.7); Basophil# 0.05 X10^3/uL; Basophil% 0.7 % (0-1); Eosinophil# 0.37 X10^3/uL; Eosinophils% 5.5 % (0-5); Hematocrit 32.1 % (40-54); Hemoglobin 10.9 g/dL (13.0-16.5); Lymphocyte # 1.99 X10^3/ul (4.0); Lymphocyte % 29.4 % (19-41); Mean Corpuscular Hgb 31.4 pg (27.0-32.0); Mean Corpuscular Volume 92.5 fL (80-94); Mean Platelet Vol. 9.3 fl (6.2-12.0); Monocyte# 0.84 X10^3/uL; Monocyte% 12.4 % (0-10); NRBC Flagged by Analyzer 0 % (0-5); Neutrophil % 51.6 % (47-70); POSITIVE MORPHOLOGY YES; Platelet Count 146 K/mm3 (150-450); RBC Distribution Width CV 22.5 % (11.6-14.6); Red Blood Count 3.47 M/mm3 (4.6-6.2); White Blood Count 6.8 K/mm3 (4.4-11.0)
[2019-11-03 07:16] LABS: Differential Indicated SCAN CRITERIA MET
[2019-11-03 07:28] LABS: ALB/GLOB Ratio 0.2 RATIO (0.9-2.4); AST(SGOT) 218 U/L (15-37); Alanine Aminotransfer ALT/SGPT 222 U/L (16-61); Albumin, Serum 1.2 g/dL (3.2-5.0); Alkaline Phosphatase 161 U/L (45-117); Anion Gap 2 (5-15); BUN 10 mg/dL (7-18); BUN/Creat Ratio 16.9 RATIO (10-20); Calcium,Total 7.6 mg/dL (8.5-10.1); Chloride 109 mmol/L (98-107); Creatinine, Serum 0.59 mg/dL (0.70-1.30); EST Glomerular Filtration Rate 152 mL/min (>60); Est Glom Filt Rate - Afr Amer 184 mL/min (>60); Globulin 4.8 g/dL (2.2-4.2); Glucose 86 mg/dL (74-106); Potassium 4.2 mmol/L (3.5-5.1); Sodium Level 138 mmol/L (136-145)
[2019-11-03 07:35] LABS: International Normalized Ratio 1.5; Prothrombin Time (Protime)PT. 17.7 SECONDS (11.7-14.9)
[2019-11-03 08:08] LABS: Anisocytosis 1+
[2019-11-03] MEDS: Pantoprazole Sodium 40 MG Tablet PO (08:34)
[2019-11-03] MEDS: Spironolactone 25 MG Tablet PO (08:34)
[2019-11-03] MEDS: Furosemide 40 MG/4 ML Vial IV ×2 (08:34→17:35)
--- NOTE | 2019-11-03 09:14 | CASEMGMT ---
Social Work Note Pt is listed as self-pay and has history of polysubstance abuse. SW reviewed pt's previous visit to [facility] (06/02/2019). 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 Pt also stated at that time that pt had all the resources that he needed for his drug use and denied wanting any additional resources. DARIUS met with pt and introduced self and role at [facility]. Pt is alert and orientated x3. Pt states you people ask me the same thing every time I come in here. 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 Pt states he has already been provided [place] [employer] information and denied wanting information again. Pt also admits that he is still using substances but again states I have all the resources I need, I am following up with AA, I don't need any more information. Pt denied additional needs or concerns at this time. Lynne Freed JEEPER OPERATOR, PACKING MACHINE INSPECTOR
--- NOTE | 2019-11-03 09:25 | PCM.PN.HOSP ---
Patient Problems: Active and Suspected Problems (This Medical Record has been edited. Action required.) Anasarca (Acute) Ascites (Acute) Acute hepatic failure (Acute) Hepatitis B (Acute) Hepatitis A (Acute) Subjective: Patient seen and examined. He was admitted with a complaint of shortness of breath and abdominal distension. He was recently diagnosed with acute liver failure and ascites due to a history of Hepatitis A, B and C. He was recently admitted at [facility], after he was transferred there from [facility]. Bilirubin then was 15.4. He had paracentesis, with removal of 1.5L of ascitic fluid,a nd says he was told to follow up with Dr Martinez for EGD. He hasnt yet established care with a electron gun inspector. Patient was lying comfortably in bed today. He denied any fever, chills, nausea or vomiting, chest pain or abdominal pain. Review of systems is otherwise negative. He is to go for paracentesis today. Labs and vitals reviewed. Bilirubin is down to 4.3 from 4.6 on admission. Platelets are 146 today Vitals/I&O's: Vital Signs Temp Pulse Resp BP Pulse Ox 98.4 F 90 22 H 118/88 H 93 11/03/19 08:22 11/03/19 08:22 11/03/19 08:22 11/03/19 08:22 11/03/19 08:22 Oxygen Delivery Method Room Air Weight: 226 lb 3.108 oz Body Mass Index (BMI) 30.7 Intake and Output for Last 24 Hours 11/01/19 11/02/19 11/03/19 23:59 23:59 23:59 Intake Total 576.75 / 576.75 Balance 576.75 / 576.75 General: Alert, Oriented x3, Cooperative, No apparent distress HEENT: Atraumatic, PERRLA, EOMI, Normocephalic, - - jaundiced sclera Oral: Dry Mucosa Neck: Supple, No JVD, Negative Carotid Bruits, Negative Hepatojugular Reflux, No Nodes Lungs: - - decreased breath sounds bibasally, no wheezes or crackles. Cardiovascular: Regular rate, Regular Rhythm, Normal S1, Normal S2, No murmurs Abdomen: Bowel Sounds Present, Soft, Non Tender, Distended, - - positive fluid thrill Extremities: No clubbing, No cyanosis, - - bilateral LE pitting pedal edema (2+). Skin: No breakdown, - - petechial rash over LEs and abdomen Musculoskeletal: No Tenderness to Palpation of Joints or Extremities Lymphatic: No Cervical, Supraclavicular, or Inguinal Adenopathy Neurological: Cranial nerves II-XII grossly intact, Neuro grossly intact, Motor Exam 5/5 strength throughout Psych/Mental Status: Normal Affect, Appropriate, Alert and oriented to time, place, person, mood and affect Laboratory Results 11/02/19 18:20: WBC 7.3, RBC 3.87 L, Hgb 12.3 L, Hct 36.6 L, MCV 94.6 H, MCH 31.8, MCHC 33.6, RDW Std Deviation 77.1 H, RDW Coeff of Viviana 22.4 H, Plt Count 159, MPV 9.6, Immature Gran % (Auto) 0.700, Neut % (Auto) 55.8, Lymph % (Auto) 25.0, [place] % (Auto) 13.7 H, Eos % (Auto) 3.8, Baso % (Auto) 1.0, Absolute Neuts (auto) 4.1, Absolute Lymphs (auto) 1.83, Nucleated RBC % 0, Platelet Estimate ADEQUATE, Anisocytosis RARE, Macrocytosis RARE 11/02/19 18:20: PT 17.7 H, INR 1.5, APTT 35.9 11/02/19 18:20: Sodium 136, Potassium 4.1, Chloride 105, Carbon Dioxide 29.0, Anion Gap 2 L, BUN 9, Creatinine 0.69 L, Estim Creat Clear Calc 134.33, Est GFR (MDRD) Af Amer 154, Est GFR (MDRD) Non-Af 128, BUN/Creatinine Ratio 13.1, Glucose 101, Calcium 7.7 L, Total Bilirubin 4.60 H, AST 271 H, ALT 282 H, Alkaline Phosphatase 211 H, Total Protein 7.0, Albumin 1.4 L, Globulin 5.6 H, Albumin/Globulin Ratio 0.2 L 11/02/19 22:56: Ethyl Alcohol < 3.0 11/02/19 22:56: Ammonia < 10.0 L 11/03/19 01:00: Urine Opiates Screen NEGATIVE, Urine Methadone Screen NEGATIVE, Ur Barbiturates Screen NEGATIVE, Ur Phencyclidine Scrn NEGATIVE, Ur Amphetamines Screen NEGATIVE, U Methamphetamin-MDMA NEGATIVE, U Benzodiazepines Scrn NEGATIVE, Urine Cocaine Screen NEGATIVE, U Cannabinoids Screen POSITIVE H, Ur Drug Screen Comment 11/03/19 06:53: WBC 6.8, RBC 3.47 L, Hgb 10.9 L, Hct 32.1 L, MCV 92.5, MCH 31.4, MCHC 34.0, RDW Std Deviation 75.0 H, RDW Coeff of Viviana 22.5 H, Plt Count 146 L, MPV 9.3, Immature Gran % (Auto) 0.400, Neut % (Auto) 51.6, Lymph % (Auto) 29.4, [place] % (Auto) 12.4 H, Eos % (Auto) 5.5 H, Baso % (Auto) 0.7, Absolute Neuts (auto) 3.5, Absolute Lymphs (auto) 1.99, Nucleated RBC % 0, Anisocytosis 1+ 11/03/19 06:53: PT 17.7 H, INR 1.5 11/03/19 06:53: Sodium 138, Potassium 4.2, Chloride 109 H, Carbon Dioxide 27.0, Anion Gap 2 L, BUN 10, Creatinine 0.59 L, Estim Creat Clear Calc 157.10, Est GFR (MDRD) Af Amer 184, Est GFR (MDRD) Non-Af 152, BUN/Creatinine Ratio 16.9, Glucose 86, Calcium 7.6 L, Total Bilirubin 4.30 H, AST 218 H, ALT 222 H, Alkaline Phosphatase 161 H, Total Protein 6.0 L, Albumin 1.2 L, Globulin 4.8 H, Albumin/Globulin Ratio 0.2 L Current Medications Furosemide (Lasix) 40 mg IV BID@1000,1800 ANTONIO Last Admin: 11/03/19 08:34 Dose: 40 mg Documented by: Albumin Human () 25 gm in 100 mls @ 60 mls/hr IV X1 ONE Stop: 11/03/19 11:39 Sodium Chloride () 250 mls @ 15 mls/hr IV .[id number] PRN PRN Reason: Saline Flush Last Infusion: 11/03/19 00:00 Dose: 0 mls/hr Documented by: Sodium Chloride () 250 mls @ 15 mls/hr IV .[id number] PRN PRN Reason: Additional IVPB Infusion Ibuprofen (Motrin) 400 mg PO Q4H PRN PRN PRN Reason: Pain Score 1-10/Temp > 100.7 F Nicotine (Nicoderm Cq (Pbkc)) 14 mg TRANSDERM. DAILY [facility] Last Admin: 11/03/19 08:32 Dose: 14 mg Documented by: Nutritional Formula (Lactose Free) (Ensure Enlive) 120 ml PO 4X/DAY [facility] Last Admin: 11/03/19 08:37 Dose: 120 ml Documented by: Ondansetron HCl (Zofran) 4 mg IV Q8H PRN PRN PRN Reason: NAUSEA/VOMITING Pantoprazole Sodium (Protonix) 40 mg PO DAILY [facility] Last Admin: 11/03/19 08:34 Dose: 40 mg Documented by: Senna/Docusate Sodium (Senokot-S, Ruby-Colace) 2 tablet PO BID PRN PRN PRN Reason: Constipation Sodium Chloride () 10 - 40 ml IV UD PRN PRN Reason: SALINE FLUSH Last Admin: 11/03/19 00:05 Dose: 10 ml Documented by: Spironolactone (Aldactone) 25 mg PO DAILY [facility] Last Admin: 11/03/19 08:34 Dose: 25 mg Documented by: STROKE Vital Signs/Narrative: Vital Signs Temp Pulse Resp BP Pulse Ox 11/03/19 08:22 98.4 F 86 22 H 118/88 H 93 Medical Necessity - Tobacco Use Smoking Status: Current every day smoker Tobacco Use: Cigarettes Assessment/Plan All Active Problems (This Medical Record has been edited. Action required.) Anasarca (Acute) Ascites (Acute) Acute hepatic failure (Acute) Hepatitis B (Acute) Hepatitis A (Acute) Hepatitis C (Acute) 1. Ascites due to chronic liver failure for paracentesis today. bilirubin is 4.3 today, was 4.6 on admission. Was admitted at [facility] 3 weeks ago for acute liver failure with bilirubin of 15 then. He had paracentesis done, and says he was not discharged on any diuretics currently on lasix, aldactone. for diagnostic and therapeutic paracentesis today 2. Chronic liver failure due to hepatitis A, B and C does have a history of IV drug use and currently uses IV fentanyl. Last use was 12 hours before admission has never been treated for hepatitis B or C bilirubin is 4.3 today, from a peak of 15 a few weeks ago. will need to establish care and follow up with a electron gun inspector will request records from [facility]. AST and ALT are trending down abdominal USG(10/11/19): hepatomegaly, with distended gallbladder and mild prominence of common bile duct, with no stones seen, and mild sludge in the gallbladder 3. Hepatitis A, B and C Hepatitis B and C likely due to IV drug use, as he uses fentanyl patient says he is cutting down on its use counselled to quit using IV drugs, so he can qualify for treatment for hepatitis B and C 4. History of polysubstance abuse uses IV fentanyl. Denies using heroin, though it is documented in H&P that he uses heroin and cocaine urine tox positive for cannabinoid will start on opiate withdrawal protocol with buprenorphine 5. History of alcohol abuse: says he is sober and has stopped drinking. alcohol level was <3. DVT prophylaxis: SCDS. INR was 1.5 on admission Code Visit Inpatient E&M: 86464 Subs Hosp L3
--- NOTE | 2019-11-03 11:09 | CASEMGMT ---
RN CM Assessment Note Presentation: Liver Failure, ascites Intro role of CM and purpose of RN CM assessment to patient. Pt is awake, alert and able to participate in assessment. Pt is irritable, giving short, non-detailed answers to questions. Demographics, PCP and Pharmacy verified. Pt states he has spoken with financial services associate @ [facility] and was told his income is too high for [employer] application or HCAP. States he will have to work out a payment plan. Pt has not followed up with physicians after dc from [facility] due to lack of insurance. RN CM discussed pt will need f/u and plan for discharge. Pt states he knows he will need f/u and plans to discuss payment plans with physicians. [facility] Financial Assist form given to patient. PCP: Dr. Bruce Le Specialists: none outpt Preferred Pharmacy: [facility] Insurance: none. self pay. Prescription Benefit: none. If medications on dc are cost prohibitive, SW can speak with pt re: using pharmacy assist LNOK: Mother, Gretel Martinez Living Arrangements: Lives with his mother in apartment. States he assists with her care needs. Pt states he has been independent Transportation: drives DME: none SW consult: self pay, states not eligible for VALENCIA or HCAP. States due to medical comorbities, insurance is cost prohibitive. HHC: none Patient DC goals: Home on dc DC PLAN: Home. Recommend pt be given appointments with f/u physicians. Pt states he will contact them and discuss self pay status. Nerissa THOMSONN RN ACM
--- NOTE | 2019-11-03 13:30 | FLU_PTH ---
PATIENT: OTTO LONG LOC: MS3 U#:[id number] AGE/SX: 54/M ROOM: UT312 RE11/02/[address]: Dr. Zack Bang MD : 1965 BED: 1 DIS: 11/06/2019 SPEC #: [id number] RECD: 11/03/19 14:48 STATUS: SOUT REQ #: [id number] KEELY: 11/03/19 13:[address]: Milvia Rizzo DEPT: CYTOLOGY RECD BY: Arpan Cat ENTERED: 11/06/19 10:59 SP TYPE: Fluid OTHR DR: MD Dr. Zack Bocanegra MD Dr. Robert Lindsay, DO Tissues: PARACENTESIS FLUID Procedures: Special Stain Group II Surgery Specimen Level IV Cytospin Fluid Comments: @ Ordering doctor for SSII edited from to @ by MIREILLE at 11/06/19 1340 @ Ordering doctor for SUIV edited from to @ by RGOOD at 11/06/19 1340 @ Ordering doctor for CYSPIN edited from to @ by RGOOD at 11/06/19 1340 @ Submitting doctor edited from to @ by RGOOD at 11/06/19 1340 HEADER OPERATION: Ultrasound-guided paracentesis PRE-OP DIAGNOSIS: Ascites TISSUE SUBMITTED: Paracentesis fluid for cytology DIAGNOSIS CYTOLOGY Paracentesis fluid for cytology (cytospin and cell block): Negative for malignant cells. DAV:belle 11/07/19 COMMENT Clinical correlation and appropriate follow up are necessary. CYTOLOGY STUDY Slides are reviewed. CYTOLOGY GROSS Received is 85 ml of cloudy yellow fluid labeled with the patient's name and and designated per the requisition as paracentesis. Submitted for cytology preparation including cell block. / belle 11/06/19 TC:5 CPT: 65817, 89517
[2019-11-03] MEDS: Albumin Human 25% (100 mL) 25 GM/100 ML BAG IV (14:24)
[2019-11-03] MEDS: Ibuprofen 400 MG Tablet PO (14:39)
[2019-11-03 14:52] LABS: Cytology, Body Fluid / CSF SEE PATHOLOGY REPORT
[2019-11-03 15:31] LABS: Body Fluid Mononuclear WBC # 0.271 10^3/uL; Body Fluid Mononuclear WBC % 95.4 %; Body Fluid Polynuclear WBC # 0.013 10^3/uL; Body Fluid Polynuclear WBC % 4.6 %; Body Fluid Total Cells Counted 0.333 10^3/ul; White Blood Count/Body Fluid 0.284 10^3/uL
[2019-11-03 16:13] LABS: Glucose, Body Fluid 122 mg/dL (40-70); LDH,Body Fluid 57 Units/l (Not Establ.); Protein, Body Fluid 1.1 g/dL (Not Establ.)
[2019-11-03 16:44] LABS: Lymphocytes 48 %; Mesothelial Cells 2 %; Monocytes 50 %
[2019-11-03 16:45] LABS: Auto B Fluid Analyzer BKGD Ct COUNTS W/IN LIMITS (W/IN LIMITS); Source- Body Fluid PERITONEAL FLUID
[2019-11-03 16:46] LABS: Appearance/Body Fluid CLEAR; Color/Body Fluid YELLOW
[2019-11-03 16:53] LABS: Red Cell Count/Body Fluid 38 /mm3
[2019-11-03 16:55] LABS: Body Fluid QC Type(s) BF3Q,BF4Q
[2019-11-03] MEDS: Buprenorphine HCl 2 MG TAB.SUBL SL (16:58)
[2019-11-03] MEDS: hydrOXYzine PAM 25 MG Capsule 50 MG PO (18:53)
[2019-11-03] MEDS: cloNIDine HCl 0.1 MG Tablet PO ×2 (18:54→21:17)
[2019-11-03] MEDS: Pramipexole Di-HCl 0.25 MG Tablet PO (18:54)
[2019-11-03] MEDS: Methocarbamol 750 MG Tablet PO (18:56)
[2019-11-03] MEDS: Dicyclomine 10 MG Capsule 20 MG PO (21:17)
[2019-11-04] VITALS (10 sets, daily range): BP systolic 87–120; BP diastolic 55–80; PULSE 67–94; RESP 16–20; TEMP 36.6–37.4; O2SAT 95–97
[2019-11-04] MEDS: hydrOXYzine PAM 25 MG Capsule 50 MG PO ×3 (00:57→13:17)
[2019-11-04] MEDS: Methocarbamol 750 MG Tablet PO ×4 (00:57→23:55)
[2019-11-04] MEDS: Buprenorphine HCl 2 MG TAB.SUBL SL ×4 (00:57→23:57)
[2019-11-04] MEDS: Pramipexole Di-HCl 0.25 MG Tablet PO ×2 (06:42→23:55)
[2019-11-04] MEDS: Ibuprofen 400 MG Tablet PO ×3 (06:42→18:00)
[2019-11-04] MEDS: Pantoprazole Sodium 40 MG Tablet PO (09:04)
[2019-11-04] MEDS: 0.9% Saline Lock 10 ML Syringe IV ×2 (09:04→18:01)
[2019-11-04] MEDS: Spironolactone 25 MG Tablet PO (09:05)
[2019-11-04] MEDS: cloNIDine HCl 0.1 MG Tablet PO ×2 (09:05→18:00)
[2019-11-04] MEDS: Furosemide 40 MG/4 ML Vial IV ×2 (09:05→18:00)
--- NOTE | 2019-11-04 10:57 | NURSING ---
PT RESTING QUIETLY IN BED, EYES CLOSED, RESP EASY
--- NOTE | 2019-11-04 11:02 | PN_ITS ---
Patient Problems: Active and Suspected Problems (This Medical Record has been edited. Action required.) Anasarca (Acute) Ascites (Acute) Acute hepatic failure (Acute) Hepatitis B (Acute) Hepatitis A (Acute) Subjective: He is feeling better, states that his abdomen seems to be getting a little bit tighter each day, no fevers or chills. Vitals/I&O's: Vital Signs Temp Pulse Resp BP Pulse Ox 98.6 F 78 20 H 101/61 96 11/04/19 08:57 11/04/19 10:00 11/04/19 08:57 11/04/19 08:57 11/04/19 08:57 Oxygen Delivery Method [3] Room Air Oxygen Delivery Method [2] Room Air Oxygen Delivery Method [1 ( Room Air Initial Baseline)] Oxygen Delivery Method Room Air Weight: 211 lb 13.828 oz Body Mass Index (BMI) 30.7 Intake and Output for Last 24 Hours 11/02/19 11/03/19 11/04/19 23:59 23:59 23:59 Intake Total 1676.75 / 1676.75 860 / 860 Output Total 2550 / 2550 800 / 800 Balance -873.25 / -873.25 60 / 60 General: Alert, Oriented x3, Cooperative, No apparent distress HEENT: Atraumatic, PERRLA, EOMI, Normocephalic, - - Jaundice Oral: Moist Mucosa Neck: Supple, No JVD Lungs: Clear to auscultation, Normal air movement, No rhonchi, No wheeze, No rales, Diminished Cardiovascular: Regular rate, Regular Rhythm, Normal S1, Normal S2, No murmurs Abdomen: Soft, Non Tender, No Hepato-splenomegaly, Distended - Minimal distention secondary to fluid Extremities: Capillary Refill Less than 3 Seconds, Edema - Edema 2+ pitting Skin: No rashes, No breakdown Neurological: Neuro grossly intact, Sensory exam intact to light touch and pain Psych/Mental Status: Normal Affect, Appropriate Microbiology Past 72 Hours 11/03/19 14:00 Fluid - Synovial (joint) Gram Stain - Preliminary Laboratory Results 11/03/19 14:00: Fluid Glucose 122 H, Fluid Total Protein 1.1, Fluid LDH 57 11/03/19 14:00: Fluid pH Pending 11/03/19 14:00: Fluid Source PERITONEAL FLUID, Fluid Color YELLOW, Fluid Appearance CLEAR, Fluid WBC 0.284, Fluid RBC 38, Fluid Tot Cell Count 0.333, Fld Polynuclear WBCs # 0.013, Fld Polynuclear WBCs % 4.6, Fluid Mononuclear WBCs 0.271, Fld Mononuclear WBCs % 95.4, Fluid Lymphocytes 48, Fluid Monocytes 50, Fld Mesothelial Cells 2, Fl Pathologist Comment May follow, Fluid Comment 2 SEE COMMENT 11/03/19 14:00: Miscellaneous Cytology Pending Current Medications Buprenorphine HCl (Buprenorphine Hcl) 4 mg SL Q8H ANTONIO; Taper Stop: 11/06/19 20:44 Last Admin: 11/04/19 09:05 Dose: 4 mg Documented by: Clonidine (Catapres) 0.1 mg PO Q2H PRN PRN PRN Reason: Hot/Cold Sweats or Anxiety Last Admin: 11/04/19 09:05 Dose: 0.1 mg Documented by: Dicyclomine HCl (Bentyl) 20 mg PO Q6H PRN PRN PRN Reason: Abdomnial Discomfort Last Admin: 11/03/19 21:17 Dose: 20 mg Documented by: Furosemide (Lasix) 40 mg IV BID@1000,1800 ANTONIO Last Admin: 11/04/19 09:05 Dose: 40 mg Documented by: Hydroxyzine HCl (Vistaril Vial) 50 mg IM Q6H PRN PRN PRN Reason: Breakthrough Anxiety Hydroxyzine Pamoate (Vistaril Pamoate Capsule) 50 mg PO Q6H PRN PRN PRN Reason: Mild Anxiety Last Admin: 11/04/19 06:42 Dose: 50 mg Documented by: Sodium Chloride () 250 mls @ 15 mls/hr IV .[id number] PRN PRN Reason: Saline Flush Last Infusion: 11/03/19 00:00 Dose: 0 mls/hr Documented by: Sodium Chloride () 250 mls @ 15 mls/hr IV .[id number] PRN PRN Reason: Additional IVPB Infusion Ibuprofen (Motrin) 400 mg PO Q4H PRN PRN PRN Reason: Pain Score 1-10/Temp > 100.7 F Last Admin: 11/04/19 06:42 Dose: 400 mg Documented by: Methocarbamol (Methocarbamol) 750 mg PO Q6H PRN PRN PRN Reason: Muscle Aches Last Admin: 11/04/19 06:42 Dose: 750 mg Documented by: Nicotine (Nicoderm Cq (Pbkc)) 14 mg TRANSDERM. DAILY [facility] [place] Last Admin: 11/04/19 09:05 Dose: 14 mg Documented by: Nutritional Formula (Lactose Free) (Ensure Enlive) 120 ml PO 4X/DAY [facility] Last Admin: 11/04/19 09:04 Dose: 120 ml Documented by: Ondansetron HCl (Zofran) 4 mg IV Q8H PRN PRN PRN Reason: NAUSEA/VOMITING Pantoprazole Sodium (Protonix) 40 mg PO DAILY [facility] [place] Last Admin: 11/04/19 09:04 Dose: 40 mg Documented by: Pramipexole Dihydrochloride (Mirapex) 0.25 mg PO Q12H PRN PRN PRN Reason: Restless Legs Last Admin: 11/04/19 06:42 Dose: 0.25 mg Documented by: Senna/Docusate Sodium (Senokot-S, Ruby-Colace) 2 tablet PO BID PRN PRN PRN Reason: Constipation Sodium Chloride () 10 - 40 ml IV UD PRN PRN Reason: SALINE FLUSH Last Admin: 11/04/19 09:04 Dose: 10 ml Documented by: Spironolactone (Aldactone) 25 mg PO DAILY [facility] [place] Last Admin: 11/04/19 09:05 Dose: 25 mg Documented by: STROKE Vital Signs/Narrative: Vital Signs Temp Pulse Resp BP Pulse Ox 11/04/19 10:00 78 11/04/19 08:57 98.6 F 74 20 H 101/61 96 11/04/19 07:32 96 Medical Necessity - Tobacco Use Smoking Status: Current every day smoker Tobacco Use: Cigarettes Assessment/Plan All Active Problems (This Medical Record has been edited. Action required.) Anasarca (Acute) Ascites (Acute) Acute hepatic failure (Acute) Hepatitis B (Acute) Hepatitis A (Acute) Hepatitis C (Acute) 1. Ascites secondary to chronic liver failure due to hepatitis A, B, C/polysubstance abuse with fentanyl withdrawal -He is hepatitis B and C, secondary to IV drug use. He uses IV fentanyl. He says that he used to be clean for about 10 years and had his previous hepatitis C treated. -Patiently in [facility] where he had some fluid taken off with a paracentesis. He had about 5 L taken off here. -Fluid is negative for any infection. -Continue with his Lasix and Aldactone, will increase his Aldactone as tolerated -He cannot have any treatment for his hepatitis B and C until he is clean of any IV drug use -Need to see gastroenterology as an outpatient and EGD to evaluate for possible varices -His meld-na score is about an 18 which puts him at a 4% risk of mortality in the next 90 days -Bilirubin is stable at 4.3, as are his LFTs -Continue him on Suboxone for opiate withdrawal protocol DVT: SCDs, INR is 1.5 Code Visit Inpatient E&M: 13398 Subs Hosp L2
--- NOTE | 2019-11-04 15:22 | NURSING ---
PT RESTING QUIETLY IN BED, EYES CLOSED, RESP EASY
[2019-11-05] VITALS (13 sets, daily range): BP systolic 117–151; BP diastolic 66–100; PULSE 60–88; RESP 16–20; TEMP 36.6–36.9; O2SAT 94–98
[2019-11-05 06:48] LABS: Absolute Lymphocyte Count 1.75 X10^3/uL (0.83-4.51); Absolute Neutrophil Count 3.6 X10^3/uL (2.0-7.7); Basophil# 0.04 X10^3/uL; Basophil% 0.6 % (0-1); Eosinophil# 0.28 X10^3/uL; Eosinophils% 4.3 % (0-5); Hematocrit 32.1 % (40-54); Hemoglobin 10.9 g/dL (13.0-16.5); Lymphocyte # 1.75 X10^3/ul (4.0); Lymphocyte % 26.6 % (19-41); Mean Corpuscular Hgb 31.6 pg (27.0-32.0); Mean Platelet Vol. 9.3 fl (6.2-12.0); Monocyte# 0.86 X10^3/uL; Monocyte% 13.1 % (0-10); NRBC Flagged by Analyzer 0 % (0-5); Neutrophil % 54.8 % (47-70); POSITIVE MORPHOLOGY YES; Platelet Count 149 K/mm3 (150-450); RBC Distribution Width SD 73.3 fl (35.1-43.9); Red Blood Count 3.45 M/mm3 (4.6-6.2); White Blood Count 6.6 K/mm3 (4.4-11.0)
[2019-11-05 06:53] LABS: Differential Indicated SCAN CRITERIA MET
[2019-11-05 07:25] LABS: ALB/GLOB Ratio 0.3 RATIO (0.9-2.4); AST(SGOT) 131 U/L (15-37); Alanine Aminotransfer ALT/SGPT 146 U/L (16-61); Albumin, Serum 1.2 g/dL (3.2-5.0); Alkaline Phosphatase 154 U/L (45-117); Anion Gap 2 (5-15); BUN 15 mg/dL (7-18); BUN/Creat Ratio 19.7 RATIO (10-20); Calcium,Total 7.4 mg/dL (8.5-10.1); Chloride 108 mmol/L (98-107); Creatinine, Serum 0.76 mg/dL (0.70-1.30); EST Glomerular Filtration Rate 113 mL/min (>60); Est Glom Filt Rate - Afr Amer 137 mL/min (>60); Estimated Creatinine Clearance 121.96 ml/min; Globulin 4.5 g/dL (2.2-4.2); Glucose 100 mg/dL (74-106); Potassium 3.8 mmol/L (3.5-5.1); Protein, Total 5.7 g/dL (6.4-8.2); Sodium Level 139 mmol/L (136-145)
[2019-11-05 07:56] LABS: Anisocytosis 2+; Differential Comment SCANNED; Hypochromasia 1+; Macrocytosis 1+; Microcytosis 1+; Platelet Estimate ADEQUATE (ADEQ)
[2019-11-05] MEDS: Buprenorphine HCl 2 MG TAB.SUBL SL ×2 (08:52→19:42)
[2019-11-05] MEDS: Spironolactone 50 MG Tablet PO (08:55)
[2019-11-05] MEDS: Furosemide 40 MG/4 ML Vial IV (08:55)
[2019-11-05] MEDS: Pantoprazole Sodium 40 MG Tablet PO (08:56)
--- NOTE | 2019-11-05 10:59 | PCM.PN.HOSP ---
Patient Problems: Active and Suspected Problems (This Medical Record has been edited. Action required.) Anasarca (Acute) Ascites (Acute) Acute hepatic failure (Acute) Hepatitis B (Acute) Hepatitis A (Acute) Subjective: Doing well, no issues overnight, states that his abdomen feels like it is getting little bit worrell and a little bit more tense. Vitals/I&O's: Vital Signs Temp Pulse Resp BP Pulse Ox 98 F 64 16 117/66 98 11/05/19 06:26 11/05/19 10:00 11/05/19 06:26 11/05/19 06:26 11/05/19 06:26 Oxygen Delivery Method [3] Room Air Oxygen Delivery Method [2] Room Air Oxygen Delivery Method [1 ( Room Air Initial Baseline)] Oxygen Delivery Method Room Air Weight: 206 lb 9.17 oz Body Mass Index (BMI) 30.7 Intake and Output for Last 24 Hours 11/03/19 11/04/19 11/05/19 23:59 23:59 23:59 Intake Total 1676.75 / 1676.75 2150 / 2150 400 / 400 Output Total 2550 / 2550 1950 / 1950 850 / 850 Balance -873.25 / -873.25 200 / 200 -450 / -450 General: Alert, Oriented x3, Cooperative, No apparent distress HEENT: Atraumatic, PERRLA, EOMI, Normocephalic, - - Jaundice Oral: Moist Mucosa Neck: Supple, No JVD Lungs: Clear to auscultation, Normal air movement, No rhonchi, No wheeze, No rales, Diminished Cardiovascular: Regular rate, Regular Rhythm, Normal S1, Normal S2, No murmurs Abdomen: Soft, Non Tender, No Hepato-splenomegaly, Distended - Minimal distention secondary to fluid Extremities: Capillary Refill Less than 3 Seconds, Edema - Edema 2+ pitting Skin: No rashes, No breakdown Neurological: Neuro grossly intact, Sensory exam intact to light touch and pain Psych/Mental Status: Normal Affect, Appropriate Microbiology Past 72 Hours 11/03/19 14:00 Fluid - Synovial (joint) Gram Stain - Final 11/03/19 14:00 Fluid - Synovial (joint) Body Fluid Culture - Preliminary No growth-Final to follow Laboratory Results 11/05/19 06:02: Sodium 139, Potassium 3.8, Chloride 108 H, Carbon Dioxide 29.0, Anion Gap 2 L, BUN 15, Creatinine 0.76, Estim Creat Clear Calc 121.96, Est GFR (MDRD) Af Amer 137, Est GFR (MDRD) Non-Af 113, BUN/Creatinine Ratio 19.7, Glucose 100, Calcium 7.4 L, Total Bilirubin 3.00 H, AST 131 H, ALT 146 H, Alkaline Phosphatase 154 H, Total Protein 5.7 L, Albumin 1.2 L, Globulin 4.5 H, Albumin/Globulin Ratio 0.3 L 11/05/19 06:02: WBC 6.6, RBC 3.45 L, Hgb 10.9 L, Hct 32.1 L, MCV 93.0, MCH 31.6, MCHC 34.0, RDW Std Deviation 73.3 H, RDW Coeff of Viviana 22.0 H, Plt Count 149 L, MPV 9.3, Immature Gran % (Auto) 0.600, Neut % (Auto) 54.8, Lymph % (Auto) 26.6, [place] % (Auto) 13.1 H, Eos % (Auto) 4.3, Baso % (Auto) 0.6, Absolute Neuts (auto) 3.6, Absolute Lymphs (auto) 1.75, Nucleated RBC % 0, Differential Comment SCANNED, Platelet Estimate ADEQUATE, Hypochromasia 1+, Anisocytosis 2+, Microcytosis 1+, Macrocytosis 1+ Current Medications Buprenorphine HCl (Buprenorphine Hcl) 2 mg SL Q12H ANTONIO; Taper Stop: 11/06/19 20:44 Last Admin: 11/05/19 08:52 Dose: 2 mg Documented by: Clonidine (Catapres) 0.1 mg PO Q2H PRN PRN PRN Reason: Hot/Cold Sweats or Anxiety Last Admin: 11/05/19 00:00 Dose: 0.1 mg Documented by: Dicyclomine HCl (Bentyl) 20 mg PO Q6H PRN PRN PRN Reason: Abdomnial Discomfort Last Admin: 11/03/19 21:17 Dose: 20 mg Documented by: Furosemide (Lasix) 40 mg PO DAILY [facility] Hydroxyzine HCl (Vistaril Vial) 50 mg IM Q6H PRN PRN PRN Reason: Breakthrough Anxiety Hydroxyzine Pamoate (Vistaril Pamoate Capsule) 50 mg PO Q6H PRN PRN PRN Reason: Mild Anxiety Last Admin: 11/04/19 13:17 Dose: 50 mg Documented by: Sodium Chloride () 250 mls @ 15 mls/hr IV .[id number] PRN PRN Reason: Saline Flush Last Infusion: 11/03/19 00:00 Dose: 0 mls/hr Documented by: Sodium Chloride () 250 mls @ 15 mls/hr IV .[id number] PRN PRN Reason: Additional IVPB Infusion Ibuprofen (Motrin) 400 mg PO Q4H PRN PRN PRN Reason: Pain Score 1-10/Temp > 100.7 F Last Admin: 11/04/19 18:00 Dose: 400 mg Documented by: Methocarbamol (Methocarbamol) 750 mg PO Q6H PRN PRN PRN Reason: Muscle Aches Last Admin: 11/04/19 23:55 Dose: 750 mg Documented by: Nicotine (Nicoderm Cq (Pbkc)) 14 mg TRANSDERM. DAILY [facility] Last Admin: 11/05/19 08:56 Dose: 14 mg Documented by: Nutritional Formula (Lactose Free) (Ensure Enlive) 120 ml PO 4X/DAY [facility] Last Admin: 11/05/19 08:55 Dose: Not Given Documented by: Ondansetron HCl (Zofran) 4 mg IV Q8H PRN PRN PRN Reason: NAUSEA/VOMITING Pantoprazole Sodium (Protonix) 40 mg PO DAILY [facility] Last Admin: 11/05/19 08:56 Dose: 40 mg Documented by: Pramipexole Dihydrochloride (Mirapex) 0.25 mg PO Q12H PRN PRN PRN Reason: Restless Legs Last Admin: 11/04/19 23:55 Dose: 0.25 mg Documented by: Senna/Docusate Sodium (Senokot-S, Ruby-Colace) 2 tablet PO BID PRN PRN PRN Reason: Constipation Sodium Chloride () 10 - 40 ml IV UD PRN PRN Reason: SALINE FLUSH Last Admin: 11/04/19 18:01 Dose: 10 ml Documented by: Spironolactone (Aldactone) 100 mg PO DAILY [facility] STROKE Vital Signs/Narrative: Vital Signs Pulse 11/05/19 10:00 64 Medical Necessity - Tobacco Use Smoking Status: Current every day smoker Tobacco Use: Cigarettes Assessment/Plan All Active Problems (This Medical Record has been edited. Action required.) Anasarca (Acute) Ascites (Acute) Acute hepatic failure (Acute) Hepatitis B (Acute) Hepatitis A (Acute) Hepatitis C (Acute) 1. Ascites secondary to chronic liver failure due to hepatitis A, B, C/polysubstance abuse with fentanyl withdrawal -He is hepatitis B and C, secondary to IV drug use. He uses IV fentanyl. He says that he used to be clean for about 10 years and had his previous hepatitis C treated. -Patiently in [facility] where he had some fluid taken off with a paracentesis. He had about 5 L taken off here. -Fluid is negative for any infection. -Will increase his Aldactone to 100 and will discontinue his IV Lasix and transition him to 40 mg p.o. daily -He cannot have any treatment for his hepatitis B and C until he is clean of any IV drug use -Need to see gastroenterology as an outpatient and EGD to evaluate for possible varices -His meld-na score is about an 18 which puts him at a 4% risk of mortality in the next 90 days -LFTs and total bilirubin have improved today -Continue him on Suboxone for opiate withdrawal protocol DVT: SCDs, INR is 1.5 Code Visit Inpatient E&M: 82404 Subs Hosp L2
[2019-11-05] MEDS: cloNIDine HCl 0.1 MG Tablet PO ×4 (14:29→23:01)
[2019-11-05] MEDS: hydrOXYzine PAM 25 MG Capsule 50 MG PO (14:29)
[2019-11-05] MEDS: Methocarbamol 750 MG Tablet PO ×2 (14:29→22:59)
[2019-11-05] MEDS: Pramipexole Di-HCl 0.25 MG Tablet PO (18:23)
[2019-11-05] MEDS: Ibuprofen 400 MG Tablet PO (18:23)
[2019-11-05] MEDS: hydrOXYzine 50 MG/ML Vial IM (19:42)
--- NOTE | 2019-11-05 23:01 | NURSING ---
pt stating he does not want to be woken up during the night for vs/assessment/care. states he will notify this rn if he wakes up before 0700, but does not want to be awoken at all.
[2019-11-06 04:00] VITALS: PULSE 52
[2019-11-06 06:12] LABS: ALB/GLOB Ratio 0.3 RATIO (0.9-2.4); AST(SGOT) 124 U/L (15-37); Alanine Aminotransfer ALT/SGPT 132 U/L (16-61); Albumin, Serum 1.2 g/dL (3.2-5.0); Alkaline Phosphatase 134 U/L (45-117); Anion Gap 5 (5-15); BUN 17 mg/dL (7-18); BUN/Creat Ratio 23.7 RATIO (10-20); Calcium,Total 7.4 mg/dL (8.5-10.1); Chloride 108 mmol/L (98-107); Creatinine, Serum 0.72 mg/dL (0.70-1.30); EST Glomerular Filtration Rate 121 mL/min (>60); Est Glom Filt Rate - Afr Amer 147 mL/min (>60); Estimated Creatinine Clearance 128.73 ml/min; Globulin 4.4 g/dL (2.2-4.2); Glucose 82 mg/dL (74-106); Protein, Total 5.6 g/dL (6.4-8.2); Sodium Level 140 mmol/L (136-145)
[2019-11-06 07:00] VITALS: BP 110/78; PULSE 63; RESP 18; TEMP 36.6; O2SAT 98
[2019-11-06 08:24] VITALS: BP 110/63; PULSE 68; RESP 16; TEMP 36.9; O2SAT 95
[2019-11-06] MEDS: Furosemide 40 MG Tablet PO (08:29)
[2019-11-06] MEDS: Pantoprazole Sodium 40 MG Tablet PO (08:29)
[2019-11-06] MEDS: Spironolactone 50 MG Tablet 100 MG PO (08:29)
[2019-11-06] MEDS: Buprenorphine HCl 2 MG TAB.SUBL SL (08:35)
--- NOTE | 2019-11-06 10:38 | DCINST_ITS ---
- Discharge Diagnoses Current Active Problems: Current Active and Chronic Problems (This Medical Record has been edited. Action required.) Anasarca (Acute) Ascites (Acute) Acute hepatic failure (Acute) Hepatitis B (Acute) Hepatitis A (Acute) You will use the following diet at home:: Fluid restricted (specify 2000 mls, 1500 mls) - 1500 Your food should be the consistency of: Regular Your liquids should be the consistency of: Regular/Thin Discharge Activity: Return to Normal Activity Call your doctor if you observe: Fever of 101 or Higher, Shortness of breath, Dizziness, Fainting spells, Swelling in the ankles, Chest pain, Increased palpitations (irregular heartbeat) Instructions: Paracentesis Allergies/Adverse Reactions: Allergies Penicillins Allergy (Verified 10/11/19 20:27) Rash Medications to take at Discharge Furosemide [Lasix] 40 mg PO DAILY #30 tab 11/06/19 Spironolactone [Aldactone] 100 mg PO DAILY #60 tab 11/06/19 The following prescriptions were given: Spironolactone [Aldactone] 100 mg PO DAILY #60 tab Transmission Status: Pending to [id number] Furosemide [Lasix] 40 mg PO DAILY #30 tab Transmission Status: Pending to [id number] Primary Care Physician: Bruce Le DO [Primary Care Provider] - Please follow up with your Primary Care Physician in: 3-5 days Test Results: Test results from this visit will be discussed in further detail at your follow- up appointment, if applicable. Please Follow Up With: Hasmukh Chavez MD When: 2-4 weeks
--- NOTE | 2019-11-06 11:18 | PCM.DC.SUM ---
Discharge Date and Diagnosis - Problem List Patient Problems: Active and Suspected Problems (This Medical Record has been edited. Action required.) Anasarca (Acute) Ascites (Acute) Acute hepatic failure (Acute) Hepatitis B (Acute) Hepatitis A (Acute) Date of Admission: 11/02/19 Date of Discharge: 11/06/19 - Primary Discharge Diagnosis Active and Suspected Problems (This Medical Record has been edited. Action required.) Anasarca (Acute) Ascites (Acute) Acute hepatic failure (Acute) Hepatitis B (Acute) Hepatitis A (Acute) - Secondary Discharge Diagnosis Chronic Problems (This Medical Record has been edited. Action required.) Tobacco use (Chronic) Polysubstance (including opioids) dependence with physiol dependence (Chronic) Hospital Course and Treatment Imaging Results: None Consults: None Operations: None Procedures: None Summary of Care Provided: Per HPI: The patient is a 54 year old M patient with past medical history as mentioned above presented to the emergency room with main complaint of shortness of breath and abdominal distention. Patient was diagnosed with acute hepatic failure secondary to hepatitis A, hepatitis B and hepatitis C on October 11, 2019 and he was transferred to [facility] for further treatment. Patient was admitted there for 6 days and he was discharged. He had paracentesis done and he mentioned that around 1.5 L taken out from his belly. His main complaint tonight is shortness of breath, started in the last 10 to 12 days, he gets short of breath with activity, slowly progressive, associated with increasing abdominal distention as well as leg edema and without significant aggravating or relieving factors. Also, he complains of scrotal swelling which has been also worsening during the same time causing discomfort upon walking. He denies urinary symptoms.. He denied fever or chills. He denied hematemesis, hematochezia or melena. He denied epistaxis or hematuria. In the emergency department, he was afebrile and his vital signs were stable. His routine blood work was remarkable for hemoglobin of 12.3, otherwise normal. LFT revealed bilirubin of 4.6, AST of 271, ALT of 282 and alkaline phosphatase of 211. Serum albumin was very low at 1.4. He is being admitted for ascites and anasarca as well as recent history of acute hepatic failure secondary to hepatitis A, B and C. Hospital Course: 1. Ascites secondary to chronic liver failure due to hepatitis A, B, C/polysubstance abuse with fentanyl [id number] male who recently in [facility] for acute liver failure at that time he had a total bilirubin of around 15. He had a paracentesis at that time and then was discharged home. He presented to this hospital with reaccumulation of his ascites as well as opiate withdrawal. On admission here his total bilirubin was done around 4 and he did steadily improve. He was started on both Aldactone and Lasix for his ascites and he had about a 5 L output during a paracentesis. He has been feeling a little bit better since the drainage, his Aldactone was increased to 100 mg p.o. and his Lasix was transitioned to 40 mg daily. He completed his Suboxone opiate withdrawal taper and is LFTs steadily improved though they never did normalize during his stay here. He was discharged home with the recommendation to follow-up with gastroenterology for an EGD to evaluate for any varices as well as for management of his hepatitis a and B, C. I did express to him that he will likely not be a candidate for treatment until he was eating his meld score and hospitalist team I discussed with him the risks and benefits of discharge today versus staying another day to have another paracentesis home. In discussion with the radiologist he did not feel that he would be appropriate to do another paracentesis so close to his previous one. Patient Problems: Active and Suspected Problems (This Medical Record has been edited. Action required.) Anasarca (Acute) Ascites (Acute) Acute hepatic failure (Acute) Hepatitis B (Acute) Hepatitis A (Acute) - Physical Exam Vitals/I&O's: Vital Signs Temp Pulse Resp BP Pulse Ox 98.4 F 68 16 110/63 95 11/06/19 08:24 11/06/19 08:24 11/06/19 08:24 11/06/19 08:24 11/06/19 08:24 Oxygen Delivery Method [3] Room Air Oxygen Delivery Method [2] Room Air Oxygen Delivery Method [1 ( Room Air Initial Baseline)] Oxygen Delivery Method Room Air Weight: 210 lb 15.718 oz Body Mass Index (BMI) 30.7 Intake and Output for Last 24 Hours 11/04/19 11/05/19 11/06/19 23:59 23:59 23:59 Intake Total 2150 / 2150 1440 / 2240 1400 / 1400 Output Total 1949 / 1949 1350 / 1350 Balance 200 / 200 90 / 890 1400 / 1400 General: Alert, Oriented x3, Cooperative, No apparent distress HEENT: Atraumatic, PERRLA, EOMI, Normocephalic, - - Jaundice Oral: Moist Mucosa Neck: Supple, No JVD Lungs: Clear to auscultation, Normal air movement, No rhonchi, No wheeze, No rales, Diminished Cardiovascular: Regular rate, Regular Rhythm, Normal S1, Normal S2, No murmurs Abdomen: Soft, Non Tender, No Hepato-splenomegaly, Distended - Minimal distention secondary to fluid Extremities: Capillary Refill Less than 3 Seconds, Edema - Edema 2+ pitting Skin: No rashes, No breakdown Neurological: Neuro grossly intact, Sensory exam intact to light touch and pain Psych/Mental Status: Normal Affect, Appropriate Microbiology Past 72 Hours 11/03/19 14:00 Fluid - Synovial (joint) Gram Stain - Final 11/03/19 14:00 Fluid - Synovial (joint) Body Fluid Culture - Preliminary No growth-Final to follow 11/03/19 14:00 Fluid - Synovial (joint) Anaerobic Culture - Preliminary No growth in 48 hours. Laboratory Results 11/06/19 05:36: Sodium 140, Potassium 4.0, Chloride 108 H, Carbon Dioxide 27.0, Anion Gap 5, BUN 17, Creatinine 0.72, Estim Creat Clear Calc 128.73, Est GFR (MDRD) Af Amer 147, Est GFR (MDRD) Non-Af 121, BUN/Creatinine Ratio 23.7 H, Glucose 82, Calcium 7.4 L, Total Bilirubin 3.10 H, AST 124 H, ALT 132 H, Alkaline Phosphatase 134 H, Total Protein 5.6 L, Albumin 1.2 L, Globulin 4.4 H, Albumin/Globulin Ratio 0.3 L Current Medications Buprenorphine HCl (Buprenorphine Hcl) 2 mg SL Q12H ANTONIO; Taper Stop: 11/06/19 20:44 Last Admin: 11/06/19 08:35 Dose: 2 mg Documented by: Clonidine (Catapres) 0.1 mg PO Q2H PRN PRN PRN Reason: Hot/Cold Sweats or Anxiety Last Admin: 11/05/19 23:01 Dose: 0.1 mg Documented by: Dicyclomine HCl (Bentyl) 20 mg PO Q6H PRN PRN PRN Reason: Abdomnial Discomfort Last Admin: 11/03/19 21:17 Dose: 20 mg Documented by: Furosemide (Lasix) 40 mg PO DAILY [facility] Last Admin: 11/06/19 08:29 Dose: 40 mg Documented by: Hydroxyzine HCl (Vistaril Vial) 50 mg IM Q6H PRN PRN PRN Reason: Breakthrough Anxiety Last Admin: 11/05/19 19:42 Dose: 50 mg Documented by: Hydroxyzine Pamoate (Vistaril Pamoate Capsule) 50 mg PO Q6H PRN PRN PRN Reason: Mild Anxiety Last Admin: 11/05/19 14:29 Dose: 50 mg Documented by: Sodium Chloride () 250 mls @ 15 mls/hr IV .[id number] PRN PRN Reason: Saline Flush Last Infusion: 11/06/19 07:25 Dose: Infused Documented by: Sodium Chloride () 250 mls @ 15 mls/hr IV .[id number] PRN PRN Reason: Additional IVPB Infusion Ibuprofen (Motrin) 400 mg PO Q4H PRN PRN PRN Reason: Pain Score 1-10/Temp > 100.7 F Last Admin: 11/05/19 18:23 Dose: 400 mg Documented by: Methocarbamol (Methocarbamol) 750 mg PO Q6H PRN PRN PRN Reason: Muscle Aches Last Admin: 11/05/19 22:59 Dose: 750 mg Documented by: Nicotine (Nicoderm Cq (Pbkc)) 14 mg TRANSDERM. DAILY [facility] Last Admin: 11/06/19 08:35 Dose: 14 mg Documented by: Nutritional Formula (Lactose Free) (Ensure Enlive) 120 ml PO 4X/DAY [facility] Last Admin: 11/06/19 08:28 Dose: Not Given Documented by: Ondansetron HCl (Zofran) 4 mg IV Q8H PRN PRN PRN Reason: NAUSEA/VOMITING Pantoprazole Sodium (Protonix) 40 mg PO DAILY [facility] Last Admin: 11/06/19 08:29 Dose: 40 mg Documented by: Pramipexole Dihydrochloride (Mirapex) 0.25 mg PO Q12H PRN PRN PRN Reason: Restless Legs Last Admin: 11/05/19 18:23 Dose: 0.25 mg Documented by: Senna/Docusate Sodium (Senokot-S, Ruby-Colace) 2 tablet PO BID PRN PRN PRN Reason: Constipation Sodium Chloride () 10 - 40 ml IV UD PRN PRN Reason: SALINE FLUSH Last Admin: 11/04/19 18:01 Dose: 10 ml Documented by: Spironolactone (Aldactone) 100 mg PO DAILY [facility] Last Admin: 11/06/19 08:29 Dose: 100 mg Documented by: Discharge Activity: Return to Normal Activity Call your doctor if you observe: Fever of 101 or Higher, Shortness of breath, Dizziness, Fainting spells, Swelling in the ankles, Chest pain, Increased palpitations (irregular heartbeat) Home Medications: Medications to take at Discharge Furosemide [Lasix] 40 mg PO DAILY #30 tab 11/06/19 Spironolactone [Aldactone] 100 mg PO DAILY #60 tab 11/06/19 Following Prescrptions Were Given to Patient: Spironolactone [Aldactone] 100 mg PO DAILY #60 tab Transmission Status: Received by [id number] Furosemide [Lasix] 40 mg PO DAILY #30 tab Transmission Status: Received by [id number] Primary Care Physician: Bruce Le DO [Primary Care Provider] - Please follow up with your Primary Care Physician in: 3-5 days Please Follow Up With: Hasmukh Chavez MD When: 2-4 weeks Please Follow Up With: Bruce Le DO Patient Instructions: Paracentesis Disposition: Home Minutes spent on discharge:: 35 Patient Condition:: Stable Medical Necessity - Tobacco Use Smoking Status: Current every day smoker Tobacco Use: Cigarettes Meaningful Use Info Meaningful Use Diagnoses (Choose all that apply): None applicable Code Visit Inpatient E&M: 55586 Disch Hosp
--- NOTE | 2019-11-06 11:36 | NURSING ---
Leslee, [facility]/ secretary specialist scheduled PCP appt with Dr. Le. Notified that pt has not seen PCP in over 4 years and they consider him a new patient and cannot see him until next . Pt states he wants a list of new PCP and that he may call and set up an appointment with them instead. List given to patient. Attempted to schedule appt with Dr. Chavez- however, notified by secretary specialist that because he is a new patient they require information faxed to them prior to setting anything up. Pt signed release of information form and information sent with comment to call patient when accepted.
[2019-11-06 13:13] LABS: Pathologist Comment/Body Fluid Reviewed
--- NOTE | 2019-11-06 17:10 | NURSING ---
pt requested all AM meds this morning at same time- same given.
--- NOTE | 2019-11-07 14:24 | CASEMGMT ---
Case Management DC F/u Call: DC Date: Wednesday11/06/2019 DC Diagnosis: Anasarca (Acute) Ascites (Acute) Acute hepatic failure (Acute) Hepatitis B (Acute) Hepatitis A (Acute) Hospital Course: 1. Ascites secondary to chronic liver failure due to hepatitis A, B, C/polysubstance abuse with fentanyl withdrawal F/u appointment Dr Le 11/16/2019 at 1500- patient to call them and discuss self pay status DC Disposition: Home Lace/Strata: 08/06 Called patient cell phone listed on demographics, patient answered, this investment underwriter introduced self and role. Patient states that he canceled the appointment with Dr Le and plan is to establish with another PCP but has not done that yet as he needs to find one. States he feels like a train wreck. Asking if he can wear compression stockings- advised him to f/u and s/w a provider regarding that d/t fluid retention. Confirmed that he is taking his Diuretics that he was Dc'd on. Denies any issues, concerns or questions with [facility], medications or f/u. DEISY Bartlett
[2019-11-08 14:05] LABS: pH, Body Fluid 11254 7.7 (Not Estab.)
== END 2019-11-06 11:35 | disposition home or self-care (01) | DRG 442 ==
LOC: ED 18:31 → MS3 21:02
PROVIDERS: Admitting Provider Hospitalist; Emergency Provider Emergency Medicine; PCP Preventive Medicine Occupational Medicine; Visit Provider Family Medicine
DX: K72.10 Chronic hepatic failure without coma (principal); R18.8 Other ascites; B15.9 Hepatitis A without hepatic coma; B19.10 Unspecified viral hepatitis B without hepatic coma; F11.23 Opioid dependence with withdrawal; F17.210 Nicotine dependence, cigarettes, uncomplicated; B19.20 Unspecified viral hepatitis C without hepatic coma
CPT/HCPCS: 36415; 49083; 80053; 80307; 80320; 82140; 82945; 83615; 83986; 84157; 85025; 85610; 85730; 87070; 87075; 87205; 88108; 88305; 88313; 89050; 97802; 99251; 99284; 99406; J7050; P9047; A4216; G0463; G0480; J1940; J3490

== ENCOUNTER → 2019-12-07 17:07 | Outpatient (CLI) | payer SELFPAY ==
[2019-11-02 21:26] VITALS: BMI 30.7
[2019-12-07 17:26] LABS: Absolute Lymphocyte Count 2.35 X10^3/uL (0.83-4.51); Absolute Neutrophil Count 4.8 X10^3/uL (2.0-7.7); Basophil# 0.05 X10^3/uL; Basophil% 0.6 % (0-1); Eosinophil# 0.25 X10^3/uL; Hematocrit 41.1 % (40-54); Hemoglobin 13.8 g/dL (13.0-16.5); Lymphocyte # 2.35 X10^3/ul (4.0); Lymphocyte % 28.2 % (19-41); Mean Corp Hgb Conc 33.6 g/dL (32-36); Mean Corpuscular Hgb 32.9 pg (27.0-32.0); Mean Corpuscular Volume 98.1 fL (80-94); Mean Platelet Vol. 9.2 fl (6.2-12.0); Monocyte# 0.83 X10^3/uL; NRBC Flagged by Analyzer 0 % (0-5); Neutrophil # 4.82 X10^3/uL (2.7-7.7); Neutrophil % 57.7 % (47-70); Platelet Count 155 K/mm3 (150-450); RBC Distribution Width CV 16.5 % (11.6-14.6); Red Blood Count 4.19 M/mm3 (4.6-6.2); White Blood Count 8.3 K/mm3 (4.4-11.0)
[2019-12-07 18:12] LABS: ALB/GLOB Ratio 0.5 RATIO (0.9-2.4); AST(SGOT) 529 U/L (15-37); Alanine Aminotransfer ALT/SGPT 491 U/L (16-61); Albumin, Serum 2.5 g/dL (3.2-5.0); Alkaline Phosphatase 218 U/L (45-117); Anion Gap 4 (5-15); BUN 12 mg/dL (7-18); BUN/Creat Ratio 18.8 RATIO (10-20); Calcium,Total 7.8 mg/dL (8.5-10.1); Chloride 107 mmol/L (98-107); Creatinine, Serum 0.64 mg/dL (0.70-1.30); EST Glomerular Filtration Rate 138 mL/min (>60); Est Glom Filt Rate - Afr Amer 168 mL/min (>60); Globulin 5.3 g/dL (2.2-4.2); Glucose 111 mg/dL (74-106); Potassium 4.2 mmol/L (3.5-5.1); Protein, Total 7.8 g/dL (6.4-8.2); Sodium Level 135 mmol/L (136-145); Thyroid Stim Hormone (TSH) 0.84 uIU/mL (0.358-3.74)
== END ==
PROVIDERS: PCP Preventive Medicine Occupational Medicine; Referring Provider Family Medicine Geriatric Medicine; Visit Provider Family Medicine Geriatric Medicine
DX: R53.83 Other fatigue (principal)
CPT/HCPCS: 36415; 80053; 84443; 85025

== ENCOUNTER → 2020-09-02 15:53 | Outpatient (CLI) | payer MEDICAID, SELFPAY ==
[2019-11-02 21:26] VITALS: BMI 30.7
[2020-09-02 18:08] LABS: Absolute Lymphocyte Count 4.57 X10^3/uL (0.83-4.51); Absolute Neutrophil Count 3.7 X10^3/uL (2.0-7.7); Basophil# 0.06 X10^3/uL; Basophil% 0.6 % (0-1); Eosinophil# 0.38 X10^3/uL; Eosinophils% 3.9 % (0-5); Hematocrit 42.1 % (40-54); Hemoglobin 14.2 g/dL (13.0-16.5); Lymphocyte # 4.57 X10^3/ul (4.0); Lymphocyte % 47.5 % (19-41); Mean Corp Hgb Conc 33.7 g/dL (32-36); Mean Corpuscular Hgb 31.2 pg (27.0-32.0); Mean Corpuscular Volume 92.5 fL (80-94); Mean Platelet Vol. 9.5 fl (6.2-12.0); Monocyte# 0.87 X10^3/uL; NRBC Flagged by Analyzer 0 % (0-5); Neutrophil # 3.72 X10^3/uL (2.7-7.7); Neutrophil % 38.7 % (47-70); Platelet Count 186 K/mm3 (150-450); RBC Distribution Width CV 12.5 % (11.6-14.6); RBC Distribution Width SD 42.6 fl (35.1-43.9); Red Blood Count 4.55 M/mm3 (4.6-6.2); White Blood Count 9.6 K/mm3 (4.4-11.0)
[2020-09-02 18:42] LABS: ALB/GLOB Ratio 1.1 RATIO (0.9-2.4); AST(SGOT) 22 U/L (15-37); Alanine Aminotransfer ALT/SGPT 39 U/L (16-61); Albumin, Serum 3.9 g/dL (3.2-5.0); Alkaline Phosphatase 91 U/L (45-117); Anion Gap 5 (5-15); BUN 26 mg/dL (7-18); BUN/Creat Ratio 24.1 RATIO (10-20); Calcium,Total 8.8 mg/dL (8.5-10.1); Chloride 105 mmol/L (98-107); Creatinine, Serum 1.08 mg/dL (0.70-1.30); EST Glomerular Filtration Rate 75 mL/min (>60); Est Glom Filt Rate - Afr Amer 91 mL/min (>60); Globulin 3.7 g/dL (2.2-4.2); Glucose 87 mg/dL (74-106); Potassium 4.4 mmol/L (3.5-5.1); Protein, Total 7.6 g/dL (6.4-8.2); Sodium Level 136 mmol/L (136-145); Thyroid Stim Hormone (TSH) 1.47 uIU/mL (0.358-3.74)
== END ==
PROVIDERS: PCP Family Medicine Geriatric Medicine; Visit Provider Family Medicine Geriatric Medicine
DX: R53.83 Other fatigue (principal); F52.8 Other sexual dysfunction not due to a substance or known physiological condition
CPT/HCPCS: 36415; 80053; 84403; 84443; 85025

== ENCOUNTER → 2020-12-18 15:58 | Outpatient (CLI) | payer MEDICAID, SELFPAY ==
[2019-11-02 21:26] VITALS: BMI 30.7
[2020-12-18 17:08] LABS: Absolute Lymphocyte Count 3.71 X10^3/uL (0.83-4.51); Absolute Neutrophil Count 4.9 X10^3/uL (2.0-7.7); Basophil# 0.07 X10^3/uL; Basophil% 0.7 % (0-1); Eosinophil# 0.25 X10^3/uL; Eosinophils% 2.6 % (0-5); Hematocrit 43.4 % (40-54); Hemoglobin 14.9 g/dL (13.0-16.5); Lymphocyte # 3.71 X10^3/ul (4.0); Mean Corp Hgb Conc 34.3 g/dL (32-36); Mean Corpuscular Hgb 30.9 pg (27.0-32.0); Mean Platelet Vol. 9.3 fl (6.2-12.0); Monocyte# 0.81 X10^3/uL; Monocyte% 8.3 % (0-10); NRBC Flagged by Analyzer 0 % (0-5); Neutrophil % 50.1 % (47-70); Platelet Count 228 K/mm3 (150-450); RBC Distribution Width CV 12.6 % (11.6-14.6); RBC Distribution Width SD 41.5 fl (35.1-43.9); Red Blood Count 4.82 M/mm3 (4.6-6.2); White Blood Count 9.8 K/mm3 (4.4-11.0)
[2020-12-18 18:47] LABS: AST(SGOT) 24 U/L (15-37); Alanine Aminotransfer ALT/SGPT 34 U/L (16-61); Albumin, Serum 4.2 g/dL (3.2-5.0); Alkaline Phosphatase 69 U/L (45-117); Anion Gap 6 (5-15); BUN 15 mg/dL (7-18); BUN/Creat Ratio 17.5 RATIO (10-20); Calcium,Total 9.4 mg/dL (8.5-10.1); Chloride 102 mmol/L (98-107); Creatinine, Serum 0.86 mg/dL (0.70-1.30); EST Glomerular Filtration Rate 98 mL/min (>60); Est Glom Filt Rate - Afr Amer 119 mL/min (>60); Glucose 91 mg/dL (74-106); PSA,Total - Annual Screen 0.41 ng/mL (0.00-4.00); Potassium 4.2 mmol/L (3.5-5.1); Protein, Total 8.2 g/dL (6.4-8.2); Sodium Level 136 mmol/L (136-145); Thyroid Stim Hormone (TSH) 0.86 uIU/mL (0.358-3.74)
== END ==
PROVIDERS: PCP Family Medicine Geriatric Medicine; Visit Provider Family Medicine Geriatric Medicine
DX: R53.83 Other fatigue (principal); F52.8 Other sexual dysfunction not due to a substance or known physiological condition; Z12.5 Encounter for screening for malignant neoplasm of prostate
CPT/HCPCS: 36415; 80053; 84153; 84403; 84443; 85025; G0103

== ENCOUNTER 2021-11-26 15:41 | Outpatient (CLI) | payer MEDICAID, SELFPAY ==
[2021-11-26 16:57] LABS: Absolute Lymphocyte Count 3.06 X10^3/uL (0.83-4.51); Absolute Neutrophil Count 4.7 X10^3/uL (2.0-7.7); Basophil# 0.05 X10^3/uL; Basophil% 0.6 % (0-1); Eosinophil# 0.33 X10^3/uL; Eosinophils% 3.7 % (0-5); Hemoglobin 14.9 g/dL (13.0-16.5); Lymphocyte # 3.06 X10^3/ul (0.83-4.51); Lymphocyte % 34.3 % (19-41); Mean Corp Hgb Conc 34.7 g/dL (32-36); Mean Corpuscular Volume 89.4 fL (80-94); Mean Platelet Vol. 9.2 fl (6.2-12.0); Monocyte# 0.74 X10^3/uL; Monocyte% 8.3 % (0-10); NRBC Flagged by Analyzer 0 % (0-5); Neutrophil # 4.72 X10^3/uL (2.7-7.7); Neutrophil % 52.8 % (47-70); Platelet Count 256 K/mm3 (150-450); RBC Distribution Width CV 12.8 % (11.6-14.6); RBC Distribution Width SD 41.8 fl (35.1-43.9); Red Blood Count 4.81 M/mm3 (4.6-6.2); White Blood Count 8.9 K/mm3 (4.4-11.0)
[2021-11-26 17:23] LABS: AST(SGOT) 19 U/L (15-37); Alanine Aminotransfer ALT/SGPT 25 U/L (16-61); Albumin, Serum 3.9 g/dL (3.2-5.0); Alkaline Phosphatase 65 U/L (45-117); Anion Gap 3 (5-15); BUN 15 mg/dL (7-18); BUN/Creat Ratio 19.9 RATIO (10-20); Calcium,Total 9.1 mg/dL (8.5-10.1); Chloride 102 mmol/L (98-107); Creatinine, Serum 0.75 mg/dL (0.70-1.30); EST Glomerular Filtration Rate 114 mL/min (>60); Est Glom Filt Rate - Afr Amer 138 mL/min (>60); Globulin 3.9 g/dL (2.2-4.2); Glucose 89 mg/dL (74-106); Potassium 4.2 mmol/L (3.5-5.1); Protein, Total 7.8 g/dL (6.4-8.2); Sodium Level 136 mmol/L (136-145); Thyroid Stim Hormone (TSH) 0.49 uIU/mL (0.358-3.74)
== END 2021-11-26 23:59 | disposition home or self-care (01) ==
LOC: POLAB3 15:43
PROVIDERS: PCP Family Medicine Geriatric Medicine; Visit Provider Family Medicine Geriatric Medicine
DX: R53.83 Other fatigue (principal); F52.8 Other sexual dysfunction not due to a substance or known physiological condition
CPT/HCPCS: 36415; 80053; 84403; 84443; 85025

== ENCOUNTER 2021-12-02 10:17 | Outpatient (CLI) | payer MEDICAID, SELFPAY ==
--- NOTE | 2021-12-02 09:40 | LES_PTH ---
PATIENT: OTTO LONG LOC: [facility] U#:[id number] AGE/SX: 56/M ROOM: RE12/02/[address]: Dr. Pro Goldstein MD : 1965 BED: DIS: 12/02/2021 SPEC #: [id number] RECD: 12/02/21 13:09 STATUS: CRISTOBAL REID #: [id number] KEELY: 12/02/21 09:[address]: Pro Goldstein Chi DEPT: SURGICAL PATHOLOGY RECD BY: Farida Sagastume Tissues: Skin of forearm, NOS Procedures: Surgery Specimen Level IV HEADER OPERATION: Biopsy PRE-OP DIAGNOSIS: Left forearm lesion TISSUE SUBMITTED: Left forearm MICROSCOPIC DIAGNOSIS Left forearm lesion, shave biopsy: Mild actinic keratosis and extensive solar elastosis. Negative for malignancy. See comment. DAV:belle 12/03/2021 COMMENT Clinical correlation and appropriate follow up are necessary. MICROSCOPIC DESCRIPTION Slides are reviewed. GROSS DESCRIPTION Received in fixative is one container labeled with the patient's name and designated left forearm. The specimen consists of a shave biopsy of garcia-white skin measuring 1 x 1 x 0.1 cm. Also, multiple hair is noted on the surface. The specimen is inked, serially sectioned and submitted entirely in one cassette. / SJ:rg 12/02/2021 TC:5 [facility]: [id number]
== END 2021-12-02 23:59 | disposition home or self-care (01) ==
LOC: LABSPEC 10:18
PROVIDERS: PCP Family Medicine Geriatric Medicine; Visit Provider Family Medicine Geriatric Medicine
DX: L81.9 Disorder of pigmentation, unspecified (principal)
CPT/HCPCS: 88305